=== PATIENT | male | born 1950 | race Caucasian/White ===

== ENCOUNTER 2016-10-05 18:16 | Emergency (ER) | payer OTHER ==
[~2016-10-05] VITALS: Ht 180.3 cm; Wt 83.2 kg
[~2016-10-05 18:16] MED LIST: ASPCH81X PO; CIPR-255 PO; GLIP-199 PO; IBUP-1050 PO; METF1TAB53 PO
[2016-10-05 18:21] VITALS: TEMP 37.1; Ht 180.3 cm; Wt 83.2 kg
[2016-10-05] MEDS ORDERED: SULFAMETHOXAZOLE/TRIMETHOPRIM DS 800/160MG TAB PO STA (18:40)
[2016-10-05] MEDS ORDERED: CEFTRIAXONE SOD INJ 1 GM ADDVIAL IV STA (18:40)
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
[2016-10-05 19:44] LABS: BASO % 0.2 %; BASO ABS # 0.02 K/uL (0-0.2); COMPLETE YES; EOS % 2.6 %; IG% 0.3 %; LYMPH % 15.8 %; LYMPH ABS # 1.39 K/uL (1.2-3.4); MEAN CELL VOLUME 86.2 fL (80-100); MEAN CORPUSCULAR HEMOGLOBIN 30.3 pg (25-34); MEAN CORPUSCULAR HGB CONC 35.1 g/dl (32-36); MEAN PLATELET VOLUME 11.1 fL (7.4-10.4); MONO % 6.4 %; NEUT % 74.7 %; PLATELET COUNT 245 K/uL (130-400); RED BLOOD COUNT 5.22 M/uL (4.7-6.1)
[2016-10-05 20:00] VITALS: BP 139/83; PULSE 65; O2SAT 96
[2016-10-05] MEDS ORDERED: SULF800T23 PO (20:04)
[2016-10-05] MEDS ORDERED: CEPH500C2 PO (20:04)
[2016-10-05 20:20] LABS: ALKALINE PHOSPHATASE 177 U/L (45-117); ALT/SGPT 31 U/L (12-78); AST/SGOT 21 U/L (15-37); BLOOD UREA NITROGEN 18 mg/dl (7-18); BUN/CREATININE RATIO 14.1 (10-20); CALCIUM 9.2 mg/dl (8.5-10.1); CARBON DIOXIDE 30 mmol/L (21-32); CHLORIDE 102 mmol/L (98-107); GLUCOSE 394 mg/dl (70-99); SODIUM 138 mmol/L (136-145)
[2016-10-05 20:32] LABS: BETA-HYDROXYBUTYRATE 3.84 mg/dL (0.2-2.81)
[2016-10-16] MEDS ORDERED: AMOX875T PO (09:28)
[2016-10-16] MEDS ORDERED: FLUC100T PO (09:30)
[2016-11-18] MEDS ORDERED: AMX500 PO (12:51)
[2016-11-27] MEDS ORDERED: INSU70IN2 SC (09:52)
== END 2016-10-05 20:30 | disposition home or self-care (01) ==
LOC: C.EDB 18:19 → C.EDC 20:30
DX: L97.529 Non-pressure chronic ulcer of other part of left foot with unspecified severity (principal); E11.65 Type 2 diabetes mellitus with hyperglycemia; R20.2 Paresthesia of skin; I10 Essential (primary) hypertension; Z79.84 Long term (current) use of oral hypoglycemic drugs; Z79.899 Other long term (current) drug therapy; Z86.79 Personal history of other diseases of the circulatory system; Z82.49 Family history of ischemic heart disease and other diseases of the circulatory system; Z83.3 Family history of diabetes mellitus

== ENCOUNTER → 2016-10-11 | Outpatient (CLI) | payer OTHER ==
[~2016-10-11] MED LIST changes: +AMOX875T PO; +AMX500 PO; -ASPCH81X PO; +CEPH500C2 PO; -CIPR-255 PO; +FLUC100T PO; +INSU70IN2 SC; +SULF800T23 PO
--- NOTE | 2016-10-11 12:00 | DIAGNOSTIC IMAGING REPORT ---
LEFT FOURTH TOE 3 VIEWS HISTORY: TOE NON HEALING WOUND COMPARISON: None. FINDINGS: Diffuse soft tissue swelling within the left fourth toe. There are 2 small focal cortical erosions at the head of the proximal phalanx and at the mid aspect of the middle phalanx of the fourth toe. No radiopaque foreign bodies. No fracture or dislocation. IMPRESSION: There are 2 small focal cortical erosions within the proximal and middle phalanx of the fourth toe. These are consistent with osteomyelitis until proven otherwise. Electronically signed by: Jimmy Sam M.D. 10/11/2016 11:59 AM Dictated Date/Time: 10/11/2016 11:56 AM
== END | disposition home or self-care (01) ==
LOC: C.RAD 10:59
PROVIDERS: ATTEND Emergency Medicine
DX: E11.621 Type 2 diabetes mellitus with foot ulcer (principal); L97.929 Non-pressure chronic ulcer of unspecified part of left lower leg with unspecified severity

== ENCOUNTER → 2016-10-25 | Outpatient (CLI) | payer OTHER ==
[~2016-10-25] MED LIST changes: -CEPH500C2 PO; +GADAVIST IV PRN; -SULF800T23 PO
--- NOTE | 2016-10-25 13:58 | DIAGNOSTIC IMAGING REPORT ---
ORBIT RADIOGRAPHS 3 VIEWS HISTORY: pre-MRI screening. COMPARISON: Head CT November 23, 2015. FINDINGS: There are no radiopaque foreign bodies identified within the orbits. IMPRESSION: No radiopaque foreign bodies identified within the orbits. Electronically signed by: Austen Gil M.D. 10/25/2016 1:57 PM Dictated Date/Time: 10/25/2016 1:56 PM
--- NOTE | 2016-10-25 15:15 | DIAGNOSTIC IMAGING REPORT ---
MRI the left forefoot without and with contrast CLINICAL HISTORY: Nonhealing left fourth toe ulceration. Possible osteomyelitis COMPARISON STUDY: No previous studies for comparison. FINDINGS: Imaging was performed in the sagittal axial and coronal planes before and after the administration of 8 cc of intravenous Gadavist. There is T1 and T2 marrow edema involving the proximal and distal phalanges of the fourth toe. There is a sinus tract communicating with the lateral skin surface at the level of the proximal to phalangeal joint. The findings are indicative of osteomyelitis. There is post gadolinium enhancement of the marrow and surrounding soft tissues. IMPRESSION: The study confirms the presence of osteomyelitis involving the proximal and middle phalanges of the fourth toe Electronically signed by: John Azevedo M.D. 10/25/2016 3:14 PM Dictated Date/Time: 10/25/2016 3:09 PM
== END | disposition home or self-care (01) ==
LOC: C.MRI 13:21
PROVIDERS: ATTEND Physician Assistant
DX: E11.622 Type 2 diabetes mellitus with other skin ulcer (principal); L97.529 Non-pressure chronic ulcer of other part of left foot with unspecified severity; Z13.5 Encounter for screening for eye and ear disorders; M86.172 Other acute osteomyelitis, left ankle and foot

== ENCOUNTER 2017-08-12 15:43 | Inpatient (IN) | payer OTHER ==
[~2017-08-12] VITALS: Ht 180.3 cm; Wt 82.9 kg
[~2017-08-12 15:43] MED LIST changes: -AMOX875T PO; -AMX500 PO; -FLUC100T PO; -GADAVIST IV PRN
[2017-08-12] MEDS ORDERED: SODIUM CHLORIDE 0.9% 1000ML 2,000 ML IV STA (16:56)
[2017-08-12] MEDS ORDERED: ONDANSETRON INJ 2 MG/ML 2 ML VIAL IV STA ×2 (16:56→20:11)
--- NOTE | 2017-08-12 17:12 | DIAGNOSTIC IMAGING REPORT ---
CHEST ONE VIEW PORTABLE HISTORY: Generalized abdominal pain. COMPARISON: Chest 11/23/2015. FINDINGS: The lungs are clear. Cardiac silhouette is normal in size. No pleural effusions. No pneumothorax. IMPRESSION: No acute process. Electronically signed by: Jimmy Sam M.D. 08/12/2017 5:11 PM Dictated Date/Time: 08/12/2017 5:10 PM
[2017-08-12] MEDS ORDERED: OPTIRAY 320 IV PRN (17:15)
[2017-08-12] MEDS ORDERED: METF-384 PO (17:40)
[2017-08-12] MEDS ORDERED: GLIP10TA9 PO (17:40)
[2017-08-12] MEDS ORDERED: INSUINJ7 SC (17:45)
[2017-08-12 17:59] LABS: BASO % 0.2 %; BASO ABS # 0.03 K/uL (0-0.2); EOS % 0.2 %; EOS ABS # 0.03 K/uL (0-0.5); HEMATOCRIT 38.3 % (42-52); HEMOGLOBIN 13.5 g/dL (14.0-18.0); IG# 0.04 K/uL (0.00-0.02); LYMPH % 8.3 %; MEAN CELL VOLUME 83.4 fL (80-100); MEAN CORPUSCULAR HEMOGLOBIN 29.4 pg (25-34); MEAN CORPUSCULAR HGB CONC 35.2 g/dl (32-36); MEAN PLATELET VOLUME 10.6 fL (7.4-10.4); MONO % 8.3 %; NEUT % 82.7 %; NEUT ABS # 10.96 K/uL (1.4-6.5); PLATELET COUNT 267 K/uL (130-400); RED CELL DISTRIBUTION WIDTH CV 12.6 % (11.5-14.5); RED CELL DISTRIBUTION WIDTH SD 38.2 fL (36.4-46.3); WHITE BLOOD COUNT 13.26 K/uL (4.8-10.8)
[2017-08-12 18:17] LABS: ISTAT CREATININE 1.4 mg/dl (0.6-1.3); ISTAT IONIZED CALCIUM 1.05 mmol/l (1.12-1.32); ISTAT POTASSIUM 3.8 mEq/L (3.3-5.0)
[2017-08-12 18:33] LABS: ALBUMIN 2.8 gm/dl (3.4-5.0); ALKALINE PHOSPHATASE 146 U/L (45-117); ALT/SGPT 19 U/L (12-78); AST/SGOT 16 U/L (15-37); BLOOD UREA NITROGEN 23 mg/dl (7-18); CARBON DIOXIDE 26 mmol/L (21-32); CREATININE 1.57 mg/dl (0.60-1.40); GLUCOSE 380 mg/dl (70-99); LIPASE 290 U/L (73-393); POTASSIUM 3.7 mmol/L (3.5-5.1); SODIUM 130 mmol/L (136-145); TOTAL PROTEIN 8.3 gm/dl (6.4-8.2)
[2017-08-12 18:57] LABS: INFLUENZA A PCR Neg for Influ A (NEG); INFLUENZA B PCR Neg for Influ B (NEG)
[2017-08-12] MEDS ORDERED: SODIUM CHLORIDE 0.9% 1000ML 1,000 ML IV STA (19:00)
--- NOTE | 2017-08-12 19:35 | DIAGNOSTIC IMAGING REPORT ---
ABDOMEN AND PELVIS CT WITHOUT CONTRAST CT DOSE: 1074.71 mGy.cm HISTORY: right flank pain TECHNIQUE: Multiaxial CT images of the abdomen and pelvis were performed without the use of intravenous and oral contrast according to the standard department stone protocol. A dose lowering technique was utilized adhering to the principles of ALARA. COMPARISON STUDY: None. FINDINGS: There is a 4 mm nodule within the right middle lobe on image 2 and a 4 mm nodule within the right lower lobe on image 8. No pneumoperitoneum. No pneumatosis. Posterior decompression at L5. No suspicious lytic or blastic osseous lesions. The unenhanced liver, spleen, adrenal glands, and pancreas are unremarkable. Punctate stone within the gallbladder. A few prominent left periaortic lymph nodes. Dominant lymph node measures 1.9 x 1.3 cm. Moderate bilateral perinephric edema/fat stranding. As is most pronounced on the left. There is abnormal fullness is a heterogeneous appearance the upper pole the left kidney. This appears a portion of the upper pole collecting system. A few small bilateral peripelvic cysts. No renal or ureteral calculi. No hydronephrosis. There is left periureteral fat stranding. There is also mild thickening of the bladder wall. Small fat-containing right inguinal hernia. Suboptimal evaluation for bowel pathology due to the lack of intravenous and oral contrast. However, there is no definite out wall thickening or obstruction. IMPRESSION: 1. No renal or ureteral stones. No hydronephrosis. 2. Bilateral perinephric fat stranding/edema most pronounced within the upper pole the left kidney. There is also abnormal soft tissue fullness in the heterogeneous appearance the upper pole the left kidney. Therefore, this could represent a bilateral pyelonephritis. However, an underlying renal mass at the left upper pole cannot be excluded on this noncontrast study. Dedicated abdominal CT with intravenous contrast is recommended for further evaluation. 3. There is also mild thickening of the bladder wall suggestive of a cystitis. Recommend correlation with urinalysis. 4. Small fat-containing right inguinal hernia. 5. No definite bowel wall thickening or obstruction. 6. There are 2 subcentimeter pulmonary nodules within the right lung with the largest measuring 4 mm. Please refer to the chart below for recommended follow-up. Please refer to below summary of Fleischner criteria recommendations for follow-up of incidental CT nodules ([facility], Guidelines for management of small pulmonary nodules detected on CT scans: A statement from the Fleischner Society, Radiology 237: [phone].) SOLID NODULES Solitary nodule size: <6 mm * Low risk patients: no follow-up needed * high risk patients: optional CT at 12 months Solitary nodule size: 6-8 mm * Low risk patients: follow-up at 6-12 months, then consider further follow-up at 18-24 months * high risk patients: initial follow-up CT at 6-12 months and then at 18-24 months if no change Solitary nodule size: >8 mm * either low or high risk patients - consider follow-up CT at 3 months, and/or CT-PET, and/or biopsy Multiple nodules size: <6 mm * Low risk patients: no routine follow-up * high risk patients: optional CT at 12 months Multiple nodules size: 6-8 mm * Low risk patients: follow-up at 3-6 months, then consider further follow-up at 18-24 months * high risk patients: follow-up at 3-6 months, then at 18-24 months if no change Multiple nodules size: >8 mm * Low risk patients: follow-up at 3-6 months, then consider further follow-up at 18-24 months * high risk patients: follow-up at 3-6 months, then at 18-24 months if no change Note: newly detected indeterminate nodule in persons 35 years of age or older. * Low risk patients: minimal or absent history of smoking and/or other known risk factors * high risk patients: history of smoking or of other known risk factors (e.g. first degree relative with lung cancer, or exposure to asbestos, radon, uranium) * if a nodule up to 8 mm is partly solid or is ground glass further follow-up is required after 24 months to exclude possible slow growing adenocarcinoma (CAPRI) SUBSOLID NODULES Solitary pure ground-glass nodule * nodule size <6 mm - no CT follow-up required * nodule size >=6 mm - follow-up CT at 6-12 months, then every 2 years until 5 years Solitary part-solid nodule * nodule size <6 mm - no CT follow-up required * nodule size >=6 mm - follow-up CT at 3-6 months. If unchanged, and solid component remains <6 mm, then annual follow-up for 5 years Multiple subsolid nodules * nodule size <6 mm - follow-up CT at 3-6 months, consider further follow-up at 2 and 4 years if stable * nodule size >=6 mm - follow-up CT at 3-6 months, subsequent management based on the most suspicious nodule(s) Electronically signed by: Jimmy Sam M.D. 08/12/2017 7:34 PM Dictated Date/Time: 08/12/2017 7:22 PM
[2017-08-12] MEDS ORDERED: LEVAQUIN 750MG / 150ML D5W IV STA (19:57)
[2017-08-12] MEDS ORDERED: INSULIN ASPART 100 UNITS/ML 3 ML PEN SC STA (19:57)
[2017-08-12] MEDS ORDERED: PIPERACILLIN/TAZOBACTAM 4.5 GM/100ML D5W IV STA (20:14)
[2017-08-12] MEDS ORDERED: INSULIN GLARGINE SOLOSTAR 100 UNITS/ML 3 ML PEN SC STA (20:25)
[2017-08-12] MEDS ORDERED: NSS + 20MEQ KCL 1000ML 1,000 ML IV SCH ×2 (20:30→23:15)
--- NOTE | 2017-08-12 21:51 | EMERGENCY ROOM VISIT NOTE ---
History Report prepared by Callie: Yolanda Hernandez Under the Supervision of: Dr. Yovanny Tran M.D. First contact with patient: 16:48 Chief Complaint: NAUSEA Stated Complaint: COUGH, SUGAR 497, FATIGUE Nursing Triage Summary: Patient ambulatory to triage with an upright and steady gait, states "I am just wore out. I have this cough that brings up white and yellow sputum. My sugar was 497 today. I have been on the recliner for the last 4 days. I can't eat, drink or anything. I have been nauseated and have tried to vomit 4 times. I haven't been able to bring anything up. I am having bilateral lower abdominal pain. I thought I had a kidney stone earlier this week because I had pain with urination. The pain is gone with urination now but my urine smells very foul. I have had fevers on and off but haven't checked my temperature. I have had the chills on and off too. I have had a runny nose and my throat was sore when this first started." History of Present Illness The patient is a 67 year old male who presents to the Emergency Room with complaints of persistent nausea starting 4 days ago. The patient has been unable to eat or drink because of his nausea. He has spent most of his time on the recliner for the past 4 days. He reports a subjective fever and dizziness. He thinks that he might have passed a kidney stone this weekend. He had pain with urination. His blood sugar has been high. He states he is not taking his insulin as he should. He has had a cough for the past 3 weeks. He had chest pain earlier this week which lasted 3 hours. He denies any vomiting or headache. He has a history of WPW. Source of History: patient, spouse/significant other Onset: 4 days ago Position: abdomen Quality: other (nausea) Timing: other (persistent) Associated Symptoms: + fevers, + cough, + chest pain (resolved), + urinary symptoms, No headache, No vomiting Note: Pt reports dizziness. Review of Systems See HPI for pertinent positives and negatives. A total of ten systems were reviewed and were otherwise negative. Past Medical & Surgical Medical Problems: (1) Bleeding (2) Diabetes (3) Heart disease (4) Hypertension (5) Osteomyelitis of left foot (6) Sepsis (7) Skin problem (8) WPW syndrome Surgical Problems: (1) History of back surgery Family History Diabetes mellitus Heart disease Social History Smoking Status: Never Smoker Housing Status: lives with significant other Occupation Status: retired Current/Historical Medications Scheduled Glipizide (Glucotrol), 10 MG PO BID Insulin Regular (Human) (Novolin R U-100), 1 DOSE SC AC Metformin Hcl (Glucophage), 1,000 MG PO BID Scheduled PRN Ibuprofen (Advil), 200 MG PO UD PRN for Pain or Fever Allergies Coded Allergies: No Known Allergies (Unverified , 08/12/17) Physical Exam Vital Signs Date Time Temp Pulse Resp B/P (MAP) Pulse Ox O2 Delivery O2 Flow Rate FiO2 08/12/17 20:31 147/85 08/12/17 20:30 93 16 96 Room Air 08/12/17 20:18 88 14 142/78 95 Room Air 08/12/17 19:46 85 18 137/75 96 Room Air 08/12/17 18:24 85 14 141/79 97 Room Air 08/12/17 15:48 37.4 118 18 132/78 96 Room Air Physical Exam GENERAL: Awake, alert, fatigued and uncomfortable-appearing, in no distress HENT: Normocephalic, atraumatic. Dry cracked mucous membranes, otherwise oropharynx unremarkable. EYES: Normal conjunctiva. Sclera non-icteric. NECK: Supple. No nuchal rigidity. FROM. No JVD. RESPIRATORY: Clear to auscultation. CARDIAC: Regular rate, normal rhythm. Extremities warm and well perfused. Pulses equal. ABDOMEN: Soft, non-distended. No tenderness to palpation. No rebound or guarding. No masses. RECTAL: Deferred. MUSCULOSKELETAL: Chest examination reveals no tenderness. The back is symmetrical on inspection without obvious abnormality. There is no CVA tenderness to palpation. No joint edema. LOWER EXTREMITIES: Calves are equal size bilaterally and non-tender. No edema. No discoloration. NEURO: Normal sensorium. No sensory or motor deficits noted. SKIN: No rash or jaundice noted. Medical Decision & Procedures ER Provider Diagnostic Interpretation: Radiology results as stated below per my review and radiologist interpretation: CHEST ONE VIEW PORTABLE HISTORY: Generalized abdominal pain. COMPARISON: Chest 11/23/2015. FINDINGS: The lungs are clear. Cardiac silhouette is normal in size. No pleural effusions. No pneumothorax. IMPRESSION: No acute process. Electronically signed by: Jimmy Sam M.D. 08/12/2017 5:11 PM Dictated Date/Time: 08/12/2017 5:10 PM ABDOMEN AND PELVIS CT WITHOUT CONTRAST CT DOSE: 1074.71 mGy.cm HISTORY: right flank pain TECHNIQUE: Multiaxial CT images of the abdomen and pelvis were performed without the use of intravenous and oral contrast according to the standard department stone protocol. A dose lowering technique was utilized adhering to the principles of ALARA. COMPARISON STUDY: None. FINDINGS: There is a 4 mm nodule within the right middle lobe on image 2 and a 4 mm nodule within the right lower lobe on image 8. No pneumoperitoneum. No pneumatosis. Posterior decompression at L5. No suspicious lytic or blastic osseous lesions. The unenhanced liver, spleen, adrenal glands, and pancreas are unremarkable. Punctate stone within the gallbladder. A few prominent left periaortic lymph nodes. Dominant lymph node measures 1.9 x 1.3 cm. Moderate bilateral perinephric edema/fat stranding. As is most pronounced on the left. There is abnormal fullness is a heterogeneous appearance the upper pole the left kidney. This appears a portion of the upper pole collecting system. A few small bilateral peripelvic cysts. No renal or ureteral calculi. No hydronephrosis. There is left periureteral fat stranding. There is also mild thickening of the bladder wall. Small fat-containing right inguinal hernia. Suboptimal evaluation for bowel pathology due to the lack of intravenous and oral contrast. However, there is no definite out wall thickening or obstruction. IMPRESSION: 1. No renal or ureteral stones. No hydronephrosis. 2. Bilateral perinephric fat stranding/edema most pronounced within the upper pole the left kidney. There is also abnormal soft tissue fullness in the heterogeneous appearance the upper pole the left kidney. Therefore, this could represent a bilateral pyelonephritis. However, an underlying renal mass at the left upper pole cannot be excluded on this noncontrast study. Dedicated abdominal CT with intravenous contrast is recommended for further evaluation. 3. There is also mild thickening of the bladder wall suggestive of a cystitis. Recommend correlation with urinalysis. 4. Small fat-containing right inguinal hernia. 5. No definite bowel wall thickening or obstruction. 6. There are 2 subcentimeter pulmonary nodules within the right lung with the largest measuring 4 mm. Please refer to the chart below for recommended follow-up. Please refer to below summary of Fleischner criteria recommendations for follow-up of incidental CT nodules (Clarke Briggs, Guidelines for management of small pulmonary nodules detected on CT scans: A statement from the Fleischner Society, Radiology 237: [phone].) SOLID NODULES Solitary nodule size: <6 mm * Low risk patients: no follow-up needed * high risk patients: optional CT at 12 months Solitary nodule size: 6-8 mm * Low risk patients: follow-up at 6-12 months, then consider further follow-up at 18-24 months * high risk patients: initial follow-up CT at 6-12 months and then at 18-24 months if no change Solitary nodule size: >8 mm * either low or high risk patients - consider follow-up CT at 3 months, and/or CT-PET, and/or biopsy Multiple nodules size: <6 mm * Low risk patients: no routine follow-up * high risk patients: optional CT at 12 months Multiple nodules size: 6-8 mm * Low risk patients: follow-up at 3-6 months, then consider further follow-up at 18-24 months * high risk patients: follow-up at 3-6 months, then at 18-24 months if no change Multiple nodules size: >8 mm * Low risk patients: follow-up at 3-6 months, then consider further follow-up at 18-24 months * high risk patients: follow-up at 3-6 months, then at 18-24 months if no change Note: newly detected indeterminate nodule in persons 35 years of age or older. * Low risk patients: minimal or absent history of smoking and/or other known risk factors * high risk patients: history of smoking or of other known risk factors (e.g. first degree relative with lung cancer, or exposure to asbestos, radon, uranium) * if a nodule up to 8 mm is partly solid or is ground glass further follow-up is required after 24 months to exclude possible slow growing adenocarcinoma (CAPRI) SUBSOLID NODULES Solitary pure ground-glass nodule * nodule size <6 mm - no CT follow-up required * nodule size >=6 mm - follow-up CT at 6-12 months, then every 2 years until 5 years Solitary part-solid nodule * nodule size <6 mm - no CT follow-up required * nodule size >=6 mm - follow-up CT at 3-6 months. If unchanged, and solid component remains <6 mm, then annual follow-up for 5 years Multiple subsolid nodules * nodule size <6 mm - follow-up CT at 3-6 months, consider further follow-up at 2 and 4 years if stable * nodule size >=6 mm - follow-up CT at 3-6 months, subsequent management based on the most suspicious nodule(s) Electronically signed by: Jimmy Sam M.D. 08/12/2017 7:34 PM Dictated Date/Time: 08/12/2017 7:22 PM Laboratory Results 08/12/17 17:35 Red Blood Count 4.59, Mean Corpuscular Volume 83.4, Mean Corpuscular Hemoglobin 29.4, Mean Corpuscular Hemoglobin Concent 35.2, Mean Platelet Volume 10.6, Neutrophils (%) (Auto) 82.7, Lymphocytes (%) (Auto) 8.3, Monocytes (%) (Auto) 8.3, Eosinophils (%) (Auto) 0.2, Basophils (%) (Auto) 0.2, Neutrophils # (Auto) 10.96, Lymphocytes # (Auto) 1.10, Monocytes # (Auto) 1.10, Eosinophils # (Auto) 0.03, Basophils # (Auto) 0.03 08/12/17 17:35 Test 08/12/17 17:18 08/12/17 17:35 08/12/17 17:48 08/12/17 18:44 Influenza Type A (RT-PCR) Neg for Influ A (NEG) Influenza Type B (RT-PCR) Neg for Influ B (NEG) White Blood Count 13.26 K/uL (4.8-10.8) Red Blood Count 4.59 M/uL (4.7-6.1) Hemoglobin 13.5 g/dL (14.0-18.0) Hematocrit 38.3 % (42-52) Mean Corpuscular Volume 83.4 fL (80-100) Mean Corpuscular Hemoglobin 29.4 pg (25-34) Mean Corpuscular Hemoglobin Concent 35.2 g/dl (32-36) Platelet Count 267 K/uL (130-400) Mean Platelet Volume 10.6 fL (7.4-10.4) Neutrophils (%) (Auto) 82.7 % Lymphocytes (%) (Auto) 8.3 % Monocytes (%) (Auto) 8.3 % Eosinophils (%) (Auto) 0.2 % Basophils (%) (Auto) 0.2 % Neutrophils # (Auto) 10.96 K/uL (1.4-6.5) Lymphocytes # (Auto) 1.10 K/uL (1.2-3.4) Monocytes # (Auto) 1.10 K/uL (0.11-0.59) Eosinophils # (Auto) 0.03 K/uL (0-0.5) Basophils # (Auto) 0.03 K/uL (0-0.2) RDW Standard Deviation 38.2 fL (36.4-46.3) RDW Coefficient of Variation 12.6 % (11.5-14.5) Immature Granulocyte % (Auto) 0.3 % Immature Granulocyte # (Auto) 0.04 K/uL (0.00-0.02) Est Creatinine Clear Calc Drug Dose 49.9 ml/min Estimated GFR () 52.8 Estimated GFR (Non- 45.6 BUN/Creatinine Ratio 14.4 (10-20) Lactic Acid Level 1.6 mmol/L (0.4-2.0) Calcium Level 9.0 mg/dl (8.5-10.1) Magnesium Level 1.9 mg/dl (1.8-2.4) Total Bilirubin 1.1 mg/dl (0.2-1) Direct Bilirubin 0.3 mg/dl (0-0.2) Aspartate Amino Transf (AST/SGOT) 16 U/L (15-37) Alanine Aminotransferase (ALT/SGPT) 19 U/L (12-78) Alkaline Phosphatase 146 U/L (45-117) Troponin I < 0.015 ng/ml (0-0.045) Total Protein 8.3 gm/dl (6.4-8.2) Albumin 2.8 gm/dl (3.4-5.0) Lipase 290 U/L (73-393) Beta-Hydroxybutyric Acid 3.69 mg/dL (0.2-2.81) Bedside Hemoglobin 13.6 g/dl (14.0-18.0) Bedside Hematocrit 40 % (42-52) Bedside Sodium 134 mEq/L (135-144) Bedside Potassium 3.8 mEq/L (3.3-5.0) Bedside Chloride 94 mEq/L (101-112) Bedside Total CO2 27 mEq/l (24-31) Anion Gap 18.0 mmol/L (16-25) Bedside Blood Urea Nitrogen 25 mg/dl (7-18) Bedside Creatinine 1.4 mg/dl (0.6-1.3) Bedside Glucose (other) 400 mg/dl (70-99) Bedside Ionized Calcium (Mika) 1.05 mmol/l (1.12-1.32) Venous Blood pH 7.40 (7.36-7.41) Venous Blood Partial Pressure CO2 45 mmHg (38.0-50.0) Venous Blood Partial Pressure O2 22 mmHg Venous Blood HCO3 28 mmol/L Venous Blood Oxygen Saturation < 60.0 % Venous Blood Base Excess 2.3 mEq/L Test 08/12/17 19:07 Urine Color YELLOW Urine Appearance TURBID (CLEAR) Urine pH 5.5 (4.5-7.5) Urine Specific Ringling 1.029 (1.000-1.030) Urine Protein 2+ (NEG) Urine Glucose (UA) 3+ (NEG) Urine Ketones TRACE (NEG) Urine Occult Blood 3+ (NEG) Urine Nitrite POS (NEG) Urine Bilirubin NEG (NEG) Urine Urobilinogen NEG (NEG) Urine Leukocyte Esterase MODERATE (NEG) Urine WBC (Auto) >30 /hpf (0-5) Urine RBC (Auto) 0-4 /hpf (0-4) Urine Hyaline Casts (Auto) 1-5 /lpf (0-5) Urine Epithelial Cells (Auto) >30 /lpf (0-5) Urine Bacteria (Auto) 4+ (NEG) Urine Yeast (Auto) (NONE PRSENT) Laboratory results reviewed by me Medications Administered Medications (Trade) Dose Ordered Sig/Asif Route Start Time Stop Time Status Last Admin Dose Admin Sodium Chloride 2,000 ml @ 999 mls/hr Q2H1M STAT IV 08/12/17 16:56 08/12/17 18:56 DC 08/12/17 17:53 999 MLS/HR Ondansetron HCl (Zofran Inj) 4 mg NOW STAT IV 08/12/17 16:56 08/12/17 16:59 DC 08/12/17 17:54 4 MG Sodium Chloride 1,000 ml @ 999 mls/hr Q1H1M STAT IV 08/12/17 19:00 08/12/17 20:00 DC 08/12/17 19:10 999 MLS/HR Insulin Aspart (novoLOG ASPART) 8 units NOW STAT SC 08/12/17 19:57 08/12/17 20:01 DC 08/12/17 20:15 8 UNITS Levofloxacin (Levaquin / D5W) 750 mg NOW STAT IV 08/12/17 19:57 08/12/17 20:17 DC 08/12/17 20:13 750 MG Ondansetron HCl (Zofran Inj) 4 mg NOW STAT IV 08/12/17 20:11 08/12/17 20:12 DC 08/12/17 20:16 4 MG Insulin Glargine (Lantus Solostar Pen) 20 units ONE STAT SC 08/12/17 20:25 08/12/17 20:26 DC 08/12/17 21:08 20 UNITS Piperacillin Sod/ Tazobactam Sod (Zosyn Iv) 4.5 gm NOW STAT IV 08/12/17 20:14 08/12/17 20:24 DC 08/12/17 20:36 4.5 GM Potassium Chloride/Sodium Chloride 1,000 ml @ 100 mls/hr Q10H IV 08/12/17 20:30 08/12/17 23:15 DC 08/12/17 21:09 100 MLS/HR ECG Per My Interpretation Indication: tachycardia Rate (beats per minute): 105 Rhythm: sinus tachycardia Findings: no acute ischemic change, other (normal axis) ED Course 1649: The patient was evaluated in room A9B. A complete history and physical exam was performed. 2000: Upon reexamination, the patient was stable. I discussed the test results and treatment plan with him. The patient will be evaluated for further management. 2009: I discussed the patient with Dr. Kim, [facility] hospitalist - He will evaluate the patient for further treatment. Medical Decision I reviewed the patient's past medical history, medications, and the nursing notes as described above. Etiologies such as appendicitis, diverticulitis, obstruction, inflammatory bowel disease, renal colic, PUD, biliary pathology, pancreatitis, mesenteric ischemia, aortic pathology, infections, genitourinary, UTI, perforated viscus, as well as others were entertained. The patient is a 67-year-old gentleman with a past medical history of insulin- dependent diabetes type 2 presents to the emergency department with worsening cough congestion, body aches, nausea over the past several days per hpi. Patient is uncomfortable and fatigued but no acute distress. Temp is 37.6. Vital signs otherwise stable. Leukocytosis to 13 consistent with the patient's grossly positive UA. CT the abdomen pelvis consistent with pyelonephritis. The patient did have elevated glucose in the 400s however no anion gap or acidosis. Thus will treat with Subcu insulin and IV fluid hydration. Lactate within normal limits. Will treat pyelonephritis with IV Levaquin. The case was discussed with [facility] hospitalist who will to admit the patient for further management. Medication Reconcilliation Current Medication List: was personally reviewed by me Blood Pressure Screening Patient's blood pressure: Elevated blood pressure Referred to hospitalist. Consults Time Called: 2006 Consulting Physician: [facility] hospitalist Returned Call: 2009 I discussed the patient with him - He will evaluate the patient for further treatment. Impression Primary Impression: Pyelonephritis Additional Impressions: Hyperglycemia Dehydration Scribe Attestation The scribe's documentation has been prepared under my direction and personally reviewed by me in its entirety. I confirm that the note above accurately reflects all work, treatment, procedures, and medical decision making performed by me. Departure Information Dispostion Being Evaluated By Hospitalist Referrals No Doctor, Assigned (PCP) Patient Instructions [facility] Problem Qualifiers
[2017-08-12] MEDS ORDERED: PHARMACY GLYCEMIC MGMT CONSULT PRN (22:51)
[2017-08-12 22:56] VITALS: BP 135/87; PULSE 99; TEMP 37.4; O2SAT 96; BMI 25.5
[2017-08-12] MEDS ORDERED: COUGH DROP (SUGAR FREE) LOZ 24 LOZ/1 BOX LOZ PRN (23:00)
[2017-08-12] MEDS ORDERED: POTASSIUM CHLORIDE 10 MEQ TABCR PO STA (23:11)
[2017-08-12] MEDS ORDERED: DOXYCYCLINE HYCLATE 100 MG CAP PO STA (23:11)
[2017-08-12] MEDS ORDERED: HYDROmorphone INJ 0.5 MG/0.5 ML SYR IV PRN (23:15)
[2017-08-12] MEDS ORDERED: GLUCOSE 40% GEL 15 GM TUBE PO PRN (23:15)
[2017-08-12] MEDS ORDERED: TRAMADOL HCL 50 MG TAB PO PRN (23:15)
[2017-08-12] MEDS ORDERED: GLUCAGON FOR INJ 1 MG VIAL SQ PRN (23:15)
[2017-08-12] MEDS ORDERED: GLUCOSE 10 TABS/TUBE PO PRN (23:15)
[2017-08-12] MEDS ORDERED: LORAZEPAM 2 MG/ML 1 ML VIAL IV PRN (23:15)
[2017-08-12] MEDS ORDERED: DEXTROSE 50% 50 ML SYR IV PRN (23:15)
[2017-08-12] MEDS ORDERED: ALBUT/IPRATROP 3MG/0.5MG NEB 3 ML VIAL INH PRN (23:15)
[2017-08-12] MEDS ORDERED: ALBUT/IPRATROP 3MG/0.5MG NEB 3 ML VIAL INH STA (23:21)
[2017-08-12 23:35] VITALS: PULSE 92; O2SAT 95
[2017-08-12] MEDS: INSULIN ASPART 100 UNITS/ML 3 ML PEN SC SCH (23:47)
[2017-08-13] MEDS: PIPERACILL/TAZOBAC IV 3.375 GM in DEXTROSE 5% 100ML IV SCH ×3 (03:35→18:26)
[2017-08-13] MEDS: INSULIN ASPART 100 UNITS/ML 3 ML PEN SC SCH ×5 (03:42→21:11)
[2017-08-13] MEDS: PROCHLORPERAZINE INJ 5 MG in SYRINGE 4 ML IV PRN (03:54)
--- NOTE | 2017-08-13 05:54 | HISTORY & PHYSICAL EXAMINATION ---
DATE OF ADMISSION: 08/12/2017 PATIENT'S PRIMARY CARE DOCTOR: Herberth Martinez PA-C from [place]. CHIEF COMPLAINT: Cough, high sugars, abdominal pain. HISTORY OF PRESENT ILLNESS: History obtained from patient and records. Medical history significant for Wubhe-Onqllgnlv-Uwimg/PSVT syndrome as per records, hypertension, hyperlipidemia, reflux, DM2, insulin requiring, history of Enterococcus diabetic foot infection. Last few days, the patient noted a cough, yellow sputum, started with nasal drainage, congestion. No chest pain, no shortness of breath. Unknown if he had sick contacts. Patient later on noted achy abdominal pain, may have passed a kidney stone, no blood in the urine. Foul smelling urine noted. Some nausea, no emesis Blood sugars noted to be high at home. Patient admits to erratic compliance with home diabetes regimen. Patient brought to Emergency Room, MEDICAL HISTORY: As above. SURGERIES: He has had eye surgery, orthopedic procedures. FAMILY HISTORY: Unknown to patient as patient is adopted. Home Meds : Glipizide, Humulin R for sliding scale, Advil, metformin (Baby ASA for "heart issues" which patient has not taken for some time now.) Allergies : NKA PERSONAL AND SOCIAL HISTORY: Nonsmoker, no chronic intake of alcoholic beverages. 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 REVIEW OF SYSTEMS: As per HPI. All 10 systems reviewed. All other ROS negative. PHYSICAL EXAMINATION: VITAL SIGNS: Blood pressure was noted to be 132/78, pulse rate noted to be 118, later 85, RR 18, temperature 38, sats 96 on room air. GENERAL: Uncomfortable, anxious, no respiratory distress. SKIN: Pallor, warm. HEENT: Pale palpebral conjunctivae. No ptosis. Dry mucosa. NECK: supple, nontender. CHEST: No tenderness. Clear to auscultation. HEART: Regular rate and rhythm, no murmur. ABDOMEN: Some distention, Hypogastric tenderness. RECTAL: Intact sphincter, yellow stool, heme negative. EXTREMITIES: No edema, no tenderness. No gross deformity. NEUROLOGIC: Coherent. No gross focality. LABORATORY DATA: Hemoglobin was noted to be 13.5, white blood cell count 13, platelets noted to be 267. Sodium 130, potassium 3.7, chloride 95, CO2 26, BUN 1.7, glucose 380. Anion gap was noted 9, Lactic acid was 1.6. Troponin negative Hemoglobin A1c from January 2017 was 7.8. Chest x-ray, no acute process. CT abdomen and pelvis showed no hydronephrosis, bilateral perinephric stranding most pronounced in the mid pole of the left kidney, possibly pyelonephritis, cystitis; 2 subcentimeter pulmonary nodules, right lung measuring 4 mm. EKG as per my interpretation rate 105, sinus tachycardia, inferior infarct ASSESSMENT: 1. Severe sepsis SIRS plus acute renal failure possible sources : complicated urinary tract infection (hx Enterococcal infection as per records) complicated bronchitis. 2. Hx WPW, PSVT as per records px NSR 3. DM2, insulin requiring, suboptimal control, as of recent A1c elevated secondary to patient admitted noncompliance with regimen. 3. Hypertension, slightly elevated not on meds. 4. Anemia, new onset 5. Pulmonary nodules PLAN: GMF CS, Zosyn for complicated UTI Doxycycline for complicated bronchitis. Monitor creatinine response to IVF Check hemoglobin A1c Pharmacy consult for glycemic control and assistance with conceiving a home regimen for patient using agents he can procure with his insurance. Anemia workup. Diabetic education. Outpatient follow-up surveillance study for incidental finding of pulmonary nodules on CT. DVT prophylaxis, Heparin subQ. Full code. MTDD
[2017-08-13] MEDS: BENZONATATE 100MG CAP PO PRN (06:22)
[2017-08-13 06:50] LABS: BASO % 0.3 %; BASO ABS # 0.03 K/uL (0-0.2); EOS % 1.1 %; EOS ABS # 0.11 K/uL (0-0.5); HEMATOCRIT 32.5 % (42-52); HEMOGLOBIN 11.3 g/dL (14.0-18.0); IG# 0.02 K/uL (0.00-0.02); LYMPH % 10.6 %; LYMPH ABS # 1.06 K/uL (1.2-3.4); MEAN CELL VOLUME 83.5 fL (80-100); MEAN CORPUSCULAR HGB CONC 34.8 g/dl (32-36); MEAN PLATELET VOLUME 9.8 fL (7.4-10.4); MONO % 9.2 %; MONO ABS # 0.92 K/uL (0.11-0.59); NEUT % 78.6 %; NEUT ABS # 7.88 K/uL (1.4-6.5); PLATELET COUNT 221 K/uL (130-400); RED CELL DISTRIBUTION WIDTH CV 12.7 % (11.5-14.5); RED CELL DISTRIBUTION WIDTH SD 38.8 fL (36.4-46.3); RETIC COUNT % 1.2 % (0.5-2.0); WHITE BLOOD COUNT 10.02 K/uL (4.8-10.8)
[2017-08-13 07:27] LABS: CALCIUM 8.3 mg/dl (8.5-10.1); CREATININE 1.17 mg/dl (0.60-1.40); POTASSIUM 3.8 mmol/L (3.5-5.1)
[2017-08-13 07:33] LABS: HEMOGLOBIN A1C 11.8 % (4.5-5.6)
[2017-08-13 07:43] VITALS: BP 116/68; PULSE 79; TEMP 36.8; O2SAT 95
[2017-08-13] MEDS: HEPARIN SOD 5000 UNIT/0.5 ML CARP SQ SCH ×2 (07:47→16:00)
[2017-08-13] MEDS: DOXYCYCLINE HYCLATE 100 MG CAP PO SCH ×2 (07:47→21:09)
[2017-08-13] MEDS: ASPIRIN 81 MG ECTAB PO SCH (07:47)
[2017-08-13] MEDS ORDERED: PIPERACILL/TAZOBAC CONSULT ACTIVE PRN (08:00)
[2017-08-13 08:01] VITALS: O2SAT 95
[2017-08-13] MEDS ORDERED: INSULIN GLARGINE SOLOSTAR 100 UNITS/ML 3 ML PEN SC SCH ×2 (09:00→20:00)
[2017-08-13] MEDS: LEVALBUTEROL 0.63MG/3 ML NEB INH SCH ×3 (10:00→19:02)
[2017-08-13 13:06] VITALS: Ht 180.3 cm; Wt 82.9 kg
[2017-08-13 14:14] VITALS: PULSE 74; O2SAT 98
--- NOTE | 2017-08-13 15:19 | Pharmacy Progress Note ---
Glycemic Control Intl Consult Date of Service Aug 13, 2017. Scope Glycemic Pharmacist consulted by Dr Kim on 08/12/17 for glycemic control and to write orders per [facility] inpatient glycemic control protocol Objective Weight (Kilograms): 82.900 Accuchecks BSG (last 24hrs): Test 08/12/17 17:16 08/12/17 17:35 08/12/17 19:07 08/12/17 23:03 Bedside Glucose 392 mg/dl (70-99) 317 mg/dl (70-99) 233 mg/dl (70-99) Random Glucose 380 mg/dl (70-99) Test 08/13/17 03:38 08/13/17 06:16 08/13/17 07:41 08/13/17 11:35 Bedside Glucose 163 mg/dl (70-99) 158 mg/dl (70-99) 248 mg/dl (70-99) Random Glucose 163 mg/dl (70-99) Laboratory Data (last 24hrs) Test 08/12/17 17:35 08/12/17 17:48 08/13/17 06:16 Anion Gap 9.0 mmol/L 18.0 mmol/L 6.0 mmol/L BUN/Creatinine Ratio 14.4 16.1 Blood Urea Nitrogen 23 mg/dl 19 mg/dl Creatinine 1.57 mg/dl 1.17 mg/dl Hemoglobin A1c 11.8 % Potassium Level 3.7 mmol/L 3.8 mmol/L Sodium Level 130 mmol/L 136 mmol/L White Blood Count 13.26 K/uL 10.02 K/uL Red Blood Count 4.59 M/uL 3.89 M/uL Hemoglobin 13.5 g/dL 11.3 g/dL Hematocrit 38.3 % 32.5 % Mean Corpuscular Volume 83.4 fL 83.5 fL Mean Corpuscular Hemoglobin 29.4 pg 29.0 pg Mean Corpuscular Hemoglobin Concent 35.2 g/dl 34.8 g/dl Platelet Count 267 K/uL 221 K/uL Mean Platelet Volume 10.6 fL 9.8 fL Neutrophils (%) (Auto) 82.7 % 78.6 % Lymphocytes (%) (Auto) 8.3 % 10.6 % Monocytes (%) (Auto) 8.3 % 9.2 % Eosinophils (%) (Auto) 0.2 % 1.1 % Basophils (%) (Auto) 0.2 % 0.3 % Neutrophils # (Auto) 10.96 K/uL 7.88 K/uL Lymphocytes # (Auto) 1.10 K/uL 1.06 K/uL Monocytes # (Auto) 1.10 K/uL 0.92 K/uL Eosinophils # (Auto) 0.03 K/uL 0.11 K/uL Basophils # (Auto) 0.03 K/uL 0.03 K/uL HbA1c Test 08/12/17 17:35 Hemoglobin A1c 11.8 % (4.5-5.6) H Recent Pertinent Medications Outpatient Anti-diabetic Regimen: * Regular insulin, sliding scale * Glipizide 10mg tab BID * Metformin 1000mg BIDM * A1c = 11.8 % 08/12/17 The patient is currently receiving: Risk Factors for Insulin Resistance: * Infection: Urosepsis Assessment & Plan ASSESSMENT: * Mr. Monzon is a 67yo M. PMHx HLD, DMII. Being treated for a complicated UTI with vancomycin and zosyn. He p/w BSG in the 400s. Trended down nicely overnight. Past 8 hours BSGs have ranged from 163-158-248. 20 units of lantus given evening of 08/12/17 and 10 units given this morning. Overnight CF/CR of 25/ 10 seemed to adequately control his glucose. Lunch time BSG of 248 is slightly worrisome. No morning correctional insulin given. Pt did not eat breakfast. Will tighten up carb coverage from 10 to 8. Further, will add 00 & 04 checks for overnight. PLAN FOR INPATIENT GLYCEMIC CONTROL: * Holding outpatient oral diabetes medications * Basal insulin with lantus scale tonight. * Correctional Insulin with NOVOLOG / REGULAR per scale ACHS * Goal Range: Low 110 mg/dL - High 140 mg/dL * Correction Factor: 25 mg/dL/unit * Nutritional / Prandial insulin per carb ratio of 1 unit per 8 grams CHO consumed * Please note that the plan above was derived based on current level of insulin resistance and hospital stress. These recommendations are appropriate for inpatient admission only. Plan of care upon discharge will need to be reassessed to avoid potential outpatient hypo/hyperglycemia. Thank you.
[2017-08-13 15:26] VITALS: BP 131/69; PULSE 77; TEMP 36.7; O2SAT 99
[2017-08-13] MEDS: FERROUS SULFATE 325 MG TAB PO SCH (16:44)
--- NOTE | 2017-08-13 17:38 | Progress Note ---
Medicine Progress Note Date & Time of Visit: Aug 13, 2017 at 17:27. Subjective Seen resting in bed, appears somewhat weak comfortable in good spirits States he feels much improved compared to last night Denies fever chills, flank pain/suprapubic pain, nausea Denies shortness of breath but does have dry cough No other symptoms Objective Last 8 Hrs Date Time Temp Pulse Resp B/P (MAP) Pulse Ox O2 Delivery O2 Flow Rate FiO2 08/13/17 15:26 36.7 77 18 131/69 (89) 99 Room Air 08/13/17 14:14 74 16 98 Room Air Physical Exam: General-oriented 3, not in distress, speaks in sentences with no effort Head- atraumatic Eyes- PERRL, EOMI, anicteric ENT- oropharynx clear Neck- supple, no JVD, no adenopathy, no thyromegaly; carotids +2/2 Lungs- clear breath sounds bilaterally Heart- regular rhythm; no murmur, normal rate Abdomen- normal bowel sounds, soft, nontender, nondistended No CVA tenderness, no suprapubic tenderness Extremities- no pretibial edema, no calf tenderness; peripheral pulses intact Neuro- alert, oriented x 3; no gross focal neurologic deficits Skin- warm & dry Laboratory Results: Last 24 Hours Test 08/12/17 17:35 08/12/17 17:48 08/12/17 18:44 08/12/17 19:07 White Blood Count 13.26 K/uL Red Blood Count 4.59 M/uL Hemoglobin 13.5 g/dL Hematocrit 38.3 % Mean Corpuscular Volume 83.4 fL Mean Corpuscular Hemoglobin 29.4 pg Mean Corpuscular Hemoglobin Concent 35.2 g/dl Platelet Count 267 K/uL Mean Platelet Volume 10.6 fL Neutrophils (%) (Auto) 82.7 % Lymphocytes (%) (Auto) 8.3 % Monocytes (%) (Auto) 8.3 % Eosinophils (%) (Auto) 0.2 % Basophils (%) (Auto) 0.2 % Neutrophils # (Auto) 10.96 K/uL Lymphocytes # (Auto) 1.10 K/uL Monocytes # (Auto) 1.10 K/uL Eosinophils # (Auto) 0.03 K/uL Basophils # (Auto) 0.03 K/uL RDW Standard Deviation 38.2 fL RDW Coefficient of Variation 12.6 % Immature Granulocyte % (Auto) 0.3 % Immature Granulocyte # (Auto) 0.04 K/uL Sodium Level 130 mmol/L Potassium Level 3.7 mmol/L Chloride Level 95 mmol/L Carbon Dioxide Level 26 mmol/L Anion Gap 9.0 mmol/L 18.0 mmol/L Blood Urea Nitrogen 23 mg/dl Creatinine 1.57 mg/dl Est Creatinine Clear Calc Drug Dose 49.9 ml/min Estimated GFR () 52.8 Estimated GFR (Non- 45.6 BUN/Creatinine Ratio 14.4 Random Glucose 380 mg/dl Estimated Average Glucose 292 mg/dl Hemoglobin A1c 11.8 % Lactic Acid Level 1.6 mmol/L Calcium Level 9.0 mg/dl Magnesium Level 1.9 mg/dl Total Bilirubin 1.1 mg/dl Direct Bilirubin 0.3 mg/dl Aspartate Amino Transf (AST/SGOT) 16 U/L Alanine Aminotransferase (ALT/SGPT) 19 U/L Alkaline Phosphatase 146 U/L Troponin I < 0.015 ng/ml Total Protein 8.3 gm/dl Albumin 2.8 gm/dl Lipase 290 U/L Beta-Hydroxybutyric Acid 3.69 mg/dL Bedside Hemoglobin 13.6 g/dl Bedside Hematocrit 40 % Bedside Sodium 134 mEq/L Bedside Potassium 3.8 mEq/L Bedside Chloride 94 mEq/L Bedside Total CO2 27 mEq/l Bedside Blood Urea Nitrogen 25 mg/dl Bedside Creatinine 1.4 mg/dl Bedside Glucose (other) 400 mg/dl Bedside Ionized Calcium (Mika) 1.05 mmol/l Venous Blood pH 7.40 Venous Blood Partial Pressure CO2 45 mmHg Venous Blood Partial Pressure O2 22 mmHg Venous Blood HCO3 28 mmol/L Venous Blood Oxygen Saturation < 60.0 % Venous Blood Base Excess 2.3 mEq/L Urine Color YELLOW Urine Appearance TURBID Urine pH 5.5 Urine Specific [place] 1.029 Urine Protein 2+ Urine Glucose (UA) 3+ Urine Ketones TRACE Urine Occult Blood 3+ Urine Nitrite POS Urine Bilirubin NEG Urine Urobilinogen NEG Urine Leukocyte Esterase MODERATE Urine WBC (Auto) >30 /hpf Urine RBC (Auto) 0-4 /hpf Urine Hyaline Casts (Auto) 1-5 /lpf Urine Epithelial Cells (Auto) >30 /lpf Urine Bacteria (Auto) 4+ Urine Yeast (Auto) Bedside Glucose 317 mg/dl Test 08/12/17 23:03 08/13/17 03:38 08/13/17 06:16 08/13/17 07:41 Bedside Glucose 233 mg/dl 163 mg/dl 158 mg/dl White Blood Count 10.02 K/uL Red Blood Count 3.89 M/uL Hemoglobin 11.3 g/dL Hematocrit 32.5 % Mean Corpuscular Volume 83.5 fL Mean Corpuscular Hemoglobin 29.0 pg Mean Corpuscular Hemoglobin Concent 34.8 g/dl Platelet Count 221 K/uL Mean Platelet Volume 9.8 fL Neutrophils (%) (Auto) 78.6 % Lymphocytes (%) (Auto) 10.6 % Monocytes (%) (Auto) 9.2 % Eosinophils (%) (Auto) 1.1 % Basophils (%) (Auto) 0.3 % Neutrophils # (Auto) 7.88 K/uL Lymphocytes # (Auto) 1.06 K/uL Monocytes # (Auto) 0.92 K/uL Eosinophils # (Auto) 0.11 K/uL Basophils # (Auto) 0.03 K/uL RDW Standard Deviation 38.8 fL RDW Coefficient of Variation 12.7 % Immature Granulocyte % (Auto) 0.2 % Immature Granulocyte # (Auto) 0.02 K/uL Absolute Reticulocyte Count 0.05 10^6/uL Percent Reticulocyte Count 1.2 % Prothrombin Time 10.5 SECONDS Prothromb Time International Ratio 1.0 Sodium Level 136 mmol/L Potassium Level 3.8 mmol/L Chloride Level 104 mmol/L Carbon Dioxide Level 26 mmol/L Anion Gap 6.0 mmol/L Blood Urea Nitrogen 19 mg/dl Creatinine 1.17 mg/dl Est Creatinine Clear Calc Drug Dose 67.0 ml/min Estimated GFR () 75.4 Estimated GFR (Non- 65.0 BUN/Creatinine Ratio 16.1 Random Glucose 163 mg/dl Calcium Level 8.3 mg/dl Iron Level 21 mcg/dl Total Iron Binding Capacity 169 mcg/dl Transferrin 143 mg/dl Transferrin % Saturation 10 % Ferritin 1071.1 ng/ml Vitamin B12 Level 273 pg/mL Folate 8.88 ng/mL Test 08/13/17 11:35 08/13/17 16:40 Bedside Glucose 248 mg/dl 281 mg/dl Date/Time Source Procedure Growth Status 08/12/17 17:43 Blood Blood Culture Pending Received 08/12/17 17:35 Blood Blood Culture Pending Received 08/12/17 19:07 Urine , Clean Catch Urine Culture Pending Received Assessment & Plan 67-year-old male with history of diabetes type 2, hypertension, dyslipidemia, WPW syndrome, Presenting with weakness. SEPSIS SECONDARY TO PYELONEPHRITIS AND POSSIBLE ACUTE BRONCHITIS Bradycardia improved, afebrile, blood pressure stable Urine cultures pending Blood cultures pending Continue empiric Zosyn and doxycycline Continue IV fluids ACUTE RENAL FAILURE LIKELY SECONDARY TO SEPSIS AND PRERENAL ETIOLOGY Resolved Management of sepsis as noted above Continue IV fluids RULE OUT RENAL MASS Seen on CT abdomen pelvis with no contrast We will order CT abdomen pelvis with contrast if renal function remains stable PULMONARY NODULES Follow-up as an outpatient per guidelines UNCONTROLLED DIABETES hemoglobin A1c 11.8 pharmacy glycemic control Consulted peer educator consulted Uses regular insulin at home 3 times daily with meals, will need to simplify with Lantus daily dosing on discharge Also on metformin and glipizide at home HYPERTENSION Stable IRON DEFICIENCY ANEMIA Monitor hemoglobin Supplement iron We will need outpatient further workup DVT prophylaxis Hemoglobin low Hold heparin until active bleeding ruled out Disposition Lives at home PT OT to be ordered Anticipate discharge to home when medically stable Current Inpatient Medications: Current Inpatient Medications Medications (Trade) Dose Ordered Sig/Asif Route Start Time Stop Time Status Last Admin Dose Admin Ioversol (Optiray 320) 100 ml UD PRN IV 08/12/17 17:15 08/16/17 17:14 Miscellaneous Information (Consult Glycemic Management Pharmacy) 1 ea DAILY PRN N/A 08/12/17 22:51 09/11/17 22:50 Menthol (Nice Ifrah) 1 ifrah PRN PRN IFRAH 08/12/17 23:00 09/11/17 22:59 08/12/17 23:50 1 IFRAH Insulin Aspart (novoLOG ASPART) SLIDING SCALE ACHS SC 08/13/17 06:30 09/12/17 06:29 08/13/17 13:48 8 UNITS Glucose (Glucose 40% Gel) 15-30 GRAMS 15 GRAMS... UD PRN PO 08/12/17 23:15 09/11/17 23:14 Glucose (Glucose Chew Tab) 4-8 Tablets 4 Tabl... UD PRN PO 08/12/17 23:15 09/11/17 23:14 Dextrose (Dextrose 50% 50ML Syringe) 25-50ML OF 50% DW IV FOR... UD PRN IV 08/12/17 23:15 09/11/17 23:14 Glucagon (Glucagon Inj) 1 mg UD PRN SQ 08/12/17 23:15 09/11/17 23:14 Heparin Sodium (Porcine) (Heparin Sq 5000 Unit/0.5ml) 5,000 unit Q8H SQ 08/13/17 08:00 09/12/17 07:59 Acetaminophen (Tylenol Tab) 650 mg Q4H PRN PO 08/12/17 23:15 09/11/17 23:14 Prochlorperazine Edisylate 5 mg/ Syringe 5 ml @ 5 mls/min Q6H PRN IV 08/12/17 23:15 09/11/17 23:14 08/13/17 03:54 5 MLS/MIN Tramadol HCl (Ultram Tab) not relieved by tylenol @ Q6H PRN PO 08/12/17 23:15 09/11/17 23:14 Hydromorphone HCl (Dilaudid Inj) 0.5 mg Q3H PRN IV 08/12/17 23:15 08/26/17 23:14 Miscellaneous Information (Consult) 1 ea DAILY PRN N/A 08/13/17 08:00 09/12/17 07:59 Doxycycline Hyclate (Vibramycin Cap) 100 mg BID PO 08/13/17 08:00 08/20/17 07:59 08/13/17 07:47 100 MG Albuterol/ Ipratropium (Duoneb) 3 ml Q2H PRN INH 08/12/17 23:15 09/11/17 23:14 Lorazepam (Ativan Inj) 0.5 mg Q4H PRN IV 08/12/17 23:15 09/11/17 23:14 Aspirin (Ecotrin Tab) 81 mg QAM PO 08/13/17 08:00 09/12/17 07:59 08/13/17 07:47 81 MG Piperacillin Sod/ Tazobactam Sod 3.375 gm/Dextrose 115 ml @ 28.75 mls/ hr Q8H IV 08/13/17 02:00 08/23/17 01:59 08/13/17 09:31 28.75 MLS/HR Benzonatate (Tessalon Perles Cap) 100 mg Q8H PRN PO 08/13/17 04:15 09/12/17 04:14 08/13/17 06:22 100 MG Ferrous Sulfate (Feosol Tab) 325 mg BIDM PO 08/13/17 17:00 09/12/17 16:59 08/13/17 16:44 325 MG Levalbuterol (Xopenex 0.63 Mg/ 3 Ml Neb) 0.63 mg Q6RWA INH 08/13/17 10:00 09/12/17 09:59 08/13/17 14:14 0.63 MG Insulin Glargine (Lantus Solostar Pen) BID SC 08/13/17 20:00 09/12/17 19:59 Insulin Aspart (novoLOG ASPART) SLIDING SCALE TODAY@0000,0400 SC 08/14/17 00:00 08/14/17 04:01
[2017-08-13] MEDS: INSULIN GLARGINE SOLOSTAR 100 UNITS/ML 3 ML PEN SC SCH (18:19)
[2017-08-13 19:03] VITALS: PULSE 89; O2SAT 96
[2017-08-13 23:03] VITALS: BP 139/72; PULSE 87; TEMP 37.8; O2SAT 97
[2017-08-14] MEDS: PIPERACILL/TAZOBAC IV 3.375 GM in DEXTROSE 5% 100ML IV SCH (01:42)
[2017-08-14] MEDS: INSULIN ASPART 100 UNITS/ML 3 ML PEN SC SCH ×6 (04:00→20:36)
[2017-08-14 06:58] LABS: BASO % 0.2 %; BASO ABS # 0.02 K/uL (0-0.2); EOS ABS # 0.17 K/uL (0-0.5); HEMATOCRIT 31.4 % (42-52); HEMOGLOBIN 10.8 g/dL (14.0-18.0); IG# 0.03 K/uL (0.00-0.02); LYMPH % 12.4 %; LYMPH ABS # 1.08 K/uL (1.2-3.4); MEAN CELL VOLUME 83.7 fL (80-100); MEAN CORPUSCULAR HEMOGLOBIN 28.8 pg (25-34); MEAN CORPUSCULAR HGB CONC 34.4 g/dl (32-36); MEAN PLATELET VOLUME 10.2 fL (7.4-10.4); MONO % 8.7 %; MONO ABS # 0.76 K/uL (0.11-0.59); NEUT % 76.4 %; NEUT ABS # 6.65 K/uL (1.4-6.5); PLATELET COUNT 237 K/uL (130-400); RED CELL DISTRIBUTION WIDTH CV 12.8 % (11.5-14.5); RED CELL DISTRIBUTION WIDTH SD 39.2 fL (36.4-46.3); WHITE BLOOD COUNT 8.71 K/uL (4.8-10.8)
[2017-08-14 07:10] VITALS: BP 132/74; PULSE 78; TEMP 37.5; O2SAT 96
[2017-08-14 07:16] VITALS: PULSE 78; O2SAT 97
[2017-08-14] MEDS: LEVALBUTEROL 0.63MG/3 ML NEB INH SCH (07:16)
[2017-08-14 07:27] LABS: CALCIUM 8.4 mg/dl (8.5-10.1); CREATININE 1.23 mg/dl (0.60-1.40); POTASSIUM 3.6 mmol/L (3.5-5.1)
[2017-08-14] MEDS: DOXYCYCLINE HYCLATE 100 MG CAP PO SCH ×2 (08:43→20:37)
[2017-08-14] MEDS: FERROUS SULFATE 325 MG TAB PO SCH ×2 (08:44→16:55)
[2017-08-14] MEDS: ASPIRIN 81 MG ECTAB PO SCH (08:44)
[2017-08-14] MEDS: INSULIN GLARGINE SOLOSTAR 100 UNITS/ML 3 ML PEN SC SCH ×2 (08:47→20:40)
[2017-08-14] MEDS ORDERED: ROCEPHIN CONSULT PHARMACY PRN (08:55)
--- NOTE | 2017-08-14 09:04 | Pharmacy Progress Note ---
Pharmacy Glycemic Short Note 2 Date of Service Aug 14, 2017. OUTPATIENT ANTIDIABETIC REGIMEN: * Novolin R sliding scale (not compliant per rn diabetes educator note) * glipizide 10 mg PO BID * metformin 1 gm PO BID ASSESSMENT: * Mr Monzon is a 67 y/o M with a PMH of WPW, HTN, HLD, and poorly controlled type 2 diabetes (goal HbA1C per the Elements of Diabetes Care Scoring Scale is 6.6-7.5%) who presented with a UTI. * Yesterday, the patient received a total of 59 units of insulin with 28 units of basal. Blood sugars were [phone]. Fasting this morning was 121 mg/dL. At the midnight check, the nurse gave the patient 3 units of Novolog for a BSG of 233 mg/dL, but the chart states blood sugar was 129 mg/dL. * Today's fasting is within goal range. Since the patient received 28 units of Lantus yesterday, reasonable to continue at least 14 units twice daily with higher dose available is blood sugars trend upwards. Post-prandial blood sugars appear appropriately controlled with tightened Novolog (parameters tightened at dinner yesterday). With elevated blood sugar at lunch, tightened carbohydrate coverage slightly. * Continue to hold oral diabetes medications while patient still acutely sick. PLAN FOR INPATIENT GLYCEMIC CONTROL: * Hold oral diabetes medications * Basal insulin * Lantus 14 units SQ BID if blood sugar less than 160 mg/dL... 18 units if greater than 160 mg/dL * Bolus insulin * NovoLog per scale ACHS or Q6hrs while NPO * Goal Range: Low 110 mg/dL - High 140 mg/dL * Correction Factor: 20 mg/dL/unit * Nutritional / Prandial insulin per carb ratio of 1 unit per 6 grams CHO consumed (tightened) PLAN FOR DISCHARGE: * Mr Monzon has uncontrolled diabetes at home. Recommend the following: * d/c glipizide (increased risk of hypoglycemia with insulin) AND regular insulin with meals * start Relion 70/30 20 units twice daily with meals * continue metformin 1 gm PO BID
[2017-08-14] MEDS ORDERED: PIPERACILL/TAZOBAC IV 3.375 GM in SODIUM CHLORIDE 0.9% 100ML 100 ML IV SCH (10:00)
[2017-08-14] MEDS ORDERED: LEVALBUTEROL 0.63MG/3 ML NEB INH PRN (10:00)
[2017-08-14] MEDS: CEFTRIAXONE SOD INJ 1000 MG in DEXTROSE 5% 50ML IV SCH (10:27)
[2017-08-14 14:26] VITALS: BP 106/71; PULSE 74; TEMP 37; O2SAT 98
[2017-08-14] MEDS: BENZONATATE 100MG CAP PO PRN (16:09)
[2017-08-14] MEDS ORDERED: MAGNESIUM HYDROXIDE SUSP 30 ML UDC PO PRN (16:30)
--- NOTE | 2017-08-14 17:55 | Progress Note ---
Medicine Progress Note Date & Time of Visit: Aug 14, 2017 at 17:51. Subjective Patient seen sleeping but easily awakened Comfortable States he feels that he is continuing to improve Has more energy today No urinary symptoms, flank pain, back pain No fevers chills Cough improving, no dyspnea Ambulating in the room with no problems No other symptoms Objective Last 8 Hrs Date Time Temp Pulse Resp B/P (MAP) Pulse Ox O2 Delivery O2 Flow Rate FiO2 08/14/17 16:00 Room Air 08/14/17 14:26 37.0 74 22 106/71 (83) 98 Room Air Physical Exam: General-oriented 3, not in distress, speaks in sentences with no effort Eyes-anicteric Neck- supple, no JVD Lungs- clear breath sounds bilaterally, no rales, no wheezes Heart- regular rhythm; no murmur, normal rate Abdomen- normal bowel sounds, soft, nontender, nondistended No CVA tenderness, no suprapubic tenderness Extremities- no pretibial edema, no calf tenderness Neuro- alert, oriented x 3; no gross focal neurologic deficits Skin- warm & dry Laboratory Results: Last 24 Hours Test 08/13/17 20:30 08/13/17 23:53 08/14/17 04:00 08/14/17 06:10 Bedside Glucose 202 mg/dl 129 mg/dl 123 mg/dl White Blood Count 8.71 K/uL Red Blood Count 3.75 M/uL Hemoglobin 10.8 g/dL Hematocrit 31.4 % Mean Corpuscular Volume 83.7 fL Mean Corpuscular Hemoglobin 28.8 pg Mean Corpuscular Hemoglobin Concent 34.4 g/dl Platelet Count 237 K/uL Mean Platelet Volume 10.2 fL Neutrophils (%) (Auto) 76.4 % Lymphocytes (%) (Auto) 12.4 % Monocytes (%) (Auto) 8.7 % Eosinophils (%) (Auto) 2.0 % Basophils (%) (Auto) 0.2 % Neutrophils # (Auto) 6.65 K/uL Lymphocytes # (Auto) 1.08 K/uL Monocytes # (Auto) 0.76 K/uL Eosinophils # (Auto) 0.17 K/uL Basophils # (Auto) 0.02 K/uL RDW Standard Deviation 39.2 fL RDW Coefficient of Variation 12.8 % Immature Granulocyte % (Auto) 0.3 % Immature Granulocyte # (Auto) 0.03 K/uL Sodium Level 135 mmol/L Potassium Level 3.6 mmol/L Chloride Level 104 mmol/L Carbon Dioxide Level 25 mmol/L Anion Gap 6.0 mmol/L Blood Urea Nitrogen 16 mg/dl Creatinine 1.23 mg/dl Est Creatinine Clear Calc Drug Dose 63.7 ml/min Estimated GFR () 71.0 Estimated GFR (Non- 61.2 BUN/Creatinine Ratio 13.2 Random Glucose 119 mg/dl Calcium Level 8.4 mg/dl Test 08/14/17 07:25 08/14/17 11:32 08/14/17 16:40 Bedside Glucose 121 mg/dl 161 mg/dl 103 mg/dl Assessment & Plan 67-year-old male with history of diabetes type 2, hypertension, dyslipidemia, WPW syndrome, Presenting with weakness. SEPSIS SECONDARY TO PYELONEPHRITIS AND POSSIBLE ACUTE BRONCHITIS Remains afebrile, blood pressure stable Urine cultures E. coli, sensitive to ceftriaxone Blood cultures no growth to date Overall improving Change Zosyn to ceftriaxone Continue doxycycline Has received IV fluids ACUTE RENAL FAILURE LIKELY SECONDARY TO SEPSIS AND PRERENAL ETIOLOGY Resolved Management of sepsis as noted above Has received IV fluids RULE OUT RENAL MASS Seen on CT abdomen pelvis with no contrast We will order CT abdomen pelvis with contrast if renal function remains stable PULMONARY NODULES Follow-up as an outpatient per guidelines UNCONTROLLED DIABETES hemoglobin A1c 11.8 pharmacy glycemic control Consulted inclusion paraeducator consulted Uses regular insulin at home 3 times daily with meals, will need to simplify with Lantus daily dosing on discharge Also on metformin and glipizide at home Blood sugars improving Appreciate pharmacy glycemic control service recommendations HYPERTENSION Stable IRON DEFICIENCY ANEMIA Monitor hemoglobin Supplement iron We will need outpatient further workup DVT prophylaxis Hemoglobin low Hold heparin until active bleeding ruled out SCDs, ambulation encouraged Disposition Lives at home PT OT to be ordered Anticipate discharge to home when medically stable Current Inpatient Medications: Current Inpatient Medications Medications (Trade) Dose Ordered Sig/Asif Route Start Time Stop Time Status Last Admin Dose Admin Ioversol (Optiray 320) 100 ml UD PRN IV 08/12/17 17:15 08/16/17 17:14 Miscellaneous Information (Consult Glycemic Management Pharmacy) 1 ea DAILY PRN N/A 08/12/17 22:51 09/11/17 22:50 Menthol (Nice Walter) 1 walter PRN PRN WALTER 08/12/17 23:00 09/11/17 22:59 08/12/17 23:50 1 WALTER Insulin Aspart (novoLOG ASPART) SLIDING SCALE ACHS SC 08/13/17 06:30 09/12/17 06:29 08/14/17 12:25 11 UNITS Glucose (Glucose 40% Gel) 15-30 GRAMS 15 GRAMS... UD PRN PO 08/12/17 23:15 09/11/17 23:14 Glucose (Glucose Chew Tab) 4-8 Tablets 4 Tabl... UD PRN PO 08/12/17 23:15 09/11/17 23:14 Dextrose (Dextrose 50% 50ML Syringe) 25-50ML OF 50% DW IV FOR... UD PRN IV 08/12/17 23:15 09/11/17 23:14 Glucagon (Glucagon Inj) 1 mg UD PRN SQ 08/12/17 23:15 09/11/17 23:14 Acetaminophen (Tylenol Tab) 650 mg Q4H PRN PO 08/12/17 23:15 09/11/17 23:14 Prochlorperazine Edisylate 5 mg/ Syringe 5 ml @ 5 mls/min Q6H PRN IV 08/12/17 23:15 09/11/17 23:14 08/13/17 03:54 5 MLS/MIN Tramadol HCl (Ultram Tab) not relieved by tylenol @ Q6H PRN PO 08/12/17 23:15 09/11/17 23:14 Hydromorphone HCl (Dilaudid Inj) 0.5 mg Q3H PRN IV 08/12/17 23:15 08/26/17 23:14 Doxycycline Hyclate (Vibramycin Cap) 100 mg BID PO 08/13/17 08:00 08/20/17 07:59 08/14/17 08:43 100 MG Albuterol/ Ipratropium (Duoneb) 3 ml Q2H PRN INH 08/12/17 23:15 09/11/17 23:14 Lorazepam (Ativan Inj) 0.5 mg Q4H PRN IV 08/12/17 23:15 09/11/17 23:14 Aspirin (Ecotrin Tab) 81 mg QAM PO 08/13/17 08:00 5/4/18 07:59 08/14/17 08:44 81 MG Benzonatate (Tessalon Perles Cap) 100 mg Q8H PRN PO 08/13/17 04:15 09/12/17 04:14 08/14/17 16:09 100 MG Ferrous Sulfate (Feosol Tab) 325 mg BIDM PO 08/13/17 17:00 09/12/17 16:59 08/14/17 16:55 325 MG Insulin Glargine (Lantus Solostar Pen) BID SC 08/13/17 17:30 09/12/17 17:29 08/14/17 08:47 14 UNITS Levalbuterol (Xopenex 0.63 Mg/ 3 Ml Neb) 0.63 mg Q4H PRN INH 08/14/17 10:00 09/12/17 09:59 Miscellaneous Information (Pharmacy Consult) 1 ea UD PRN N/A 08/14/17 08:55 09/13/17 08:54 Ceftriaxone Sodium 1000 mg/ Dextrose 60 ml @ 120 mls/hr Q24H IV 08/14/17 10:00 08/24/17 09:59 08/14/17 10:27 120 MLS/HR Magnesium Hydroxide (Milk Of Magnesia Susp) 30 ml Q6H PRN PO 08/14/17 16:30 09/13/17 16:29 08/14/17 16:55 30 ML
[2017-08-14] MEDS ORDERED: GUAIFENESIN 200 MG TAB PO PRN (18:30)
[2017-08-14] MEDS: ACETAMINOPHEN 325 MG TAB PO PRN (22:58)
[2017-08-14 23:10] VITALS: BP 129/81; PULSE 84; TEMP 37.8; O2SAT 96
[2017-08-15 06:50] LABS: BASO % 0.2 %; BASO ABS # 0.02 K/uL (0-0.2); EOS % 1.2 %; EOS ABS # 0.14 K/uL (0-0.5); HEMATOCRIT 33.9 % (42-52); HEMOGLOBIN 11.6 g/dL (14.0-18.0); IG# 0.03 K/uL (0.00-0.02); LYMPH % 7.5 %; LYMPH ABS # 0.87 K/uL (1.2-3.4); MEAN CELL VOLUME 84.3 fL (80-100); MEAN CORPUSCULAR HEMOGLOBIN 28.9 pg (25-34); MEAN CORPUSCULAR HGB CONC 34.2 g/dl (32-36); MEAN PLATELET VOLUME 9.9 fL (7.4-10.4); MONO % 5.7 %; MONO ABS # 0.66 K/uL (0.11-0.59); NEUT % 85.1 %; NEUT ABS # 9.89 K/uL (1.4-6.5); PLATELET COUNT 239 K/uL (130-400); RED CELL DISTRIBUTION WIDTH CV 12.8 % (11.5-14.5); RED CELL DISTRIBUTION WIDTH SD 39.3 fL (36.4-46.3); WHITE BLOOD COUNT 11.61 K/uL (4.8-10.8)
[2017-08-15 07:22] LABS: CALCIUM 8.9 mg/dl (8.5-10.1); CREATININE 1.19 mg/dl (0.60-1.40); POTASSIUM 3.7 mmol/L (3.5-5.1)
[2017-08-15 07:31] VITALS: BP 128/80; PULSE 93; TEMP 37.7; O2SAT 94
[2017-08-15 07:38] VITALS: O2SAT 94
[2017-08-15] MEDS: DOXYCYCLINE HYCLATE 100 MG CAP PO SCH ×2 (08:06→21:21)
[2017-08-15] MEDS: FERROUS SULFATE 325 MG TAB PO SCH ×2 (08:07→16:43)
[2017-08-15] MEDS: ASPIRIN 81 MG ECTAB PO SCH (08:23)
--- NOTE | 2017-08-15 08:40 | Pharmacy Progress Note ---
Pharmacy Glycemic Short Note 2 Date of Service Aug 15, 2017. OUTPATIENT ANTIDIABETIC REGIMEN: * Novolin R sliding scale (not compliant per environmental educator note) * glipizide 10 mg PO BID * metformin 1 gm PO BID ASSESSMENT: * Mr Monzon is a 67 y/o M with a PMH of WPW, HTN, HLD, and poorly controlled type 2 diabetes (goal HbA1C per the Elements of Diabetes Care Scoring Scale is 6.6-7.5%) who presented with a UTI. * Yesterday, the patient received a total of 49 units of insulin with 28 units of basal. Blood sugars were [phone]. Fasting this morning was 95 mg/dL. * Today's fasting is below goal range. Since the patient received 28 units of Lantus yesterday, reasonable to reduce basal by 20% to [address] Baumann, patient would prefer one dose of basal and Lantus is covered. Give 24 hour basal coverage at lunch and then tomorrow with breakfast. Post-prandial blood sugars appear appropriately controlled with tightened Novolog (parameters tightened at lunch yesterday). * Restart metformin today. Hold glipizide as not recommended inpatient. PLAN FOR INPATIENT GLYCEMIC CONTROL: * metformin 1 gm PO BID * Basal insulin * Lantus 22 units SQ daily starting with lunch today * Bolus insulin * NovoLog per scale ACHS or Q6hrs while NPO * Goal Range: Low 110 mg/dL - High 140 mg/dL * Correction Factor: 20 mg/dL/unit * Nutritional / Prandial insulin per carb ratio of 1 unit per 6 grams CHO consumed PLAN FOR DISCHARGE: * Mr Monzon has uncontrolled diabetes at home. Recommend the following: * d/c glipizide (increased risk of hypoglycemia with insulin) AND regular insulin with meals * Start Lantus 22 units daily (will need to be titrated upwards as an outpatient) --- if patient cannot afford Lantus then Relion 16 units twice daily with meals appropriate * continue metformin 1 gm PO BID
[2017-08-15] MEDS: INSULIN ASPART 100 UNITS/ML 3 ML PEN SC SCH ×4 (08:45→21:00)
[2017-08-15] MEDS ORDERED: METFORMIN HCL 500 MG TAB PO SCH (09:00)
[2017-08-15] MEDS ORDERED: DOCUSATE SODIUM/SENNA 50/8.6MG TAB PO ONE (09:30)
--- NOTE | 2017-08-15 09:55 | Progress Note ---
Medicine Progress Note Date & Time of Visit: Aug 15, 2017 at 09:52. Subjective Seen resting in bed comfortable Reports persistent cough with white/clear phlegm Denies shortness of breath Had some low-grade fever overnight No back or flank pain No dysuria No other symptoms Objective Last 8 Hrs Date Time Temp Pulse Resp B/P (MAP) Pulse Ox O2 Delivery O2 Flow Rate FiO2 08/15/17 07:38 94 Room Air 08/15/17 07:31 37.7 93 18 128/80 (96) 94 Room Air Physical Exam: General-oriented 3, not in distress, speaks in sentences with no effort Eyes-anicteric Neck- supple, no JVD Lungs- clear breath sounds bilaterally, no rales, no wheezes Heart- regular rhythm; no murmur, normal rate Abdomen- normal bowel sounds, soft, nontender, nondistended No CVA tenderness, no suprapubic tenderness Extremities- no pretibial edema, no calf tenderness Neuro- alert, oriented x 3; no gross focal neurologic deficits Skin- warm & dry Laboratory Results: Last 24 Hours Test 08/14/17 11:32 08/14/17 16:40 08/14/17 20:33 08/15/17 05:57 Bedside Glucose 161 mg/dl 103 mg/dl 131 mg/dl White Blood Count 11.61 K/uL Red Blood Count 4.02 M/uL Hemoglobin 11.6 g/dL Hematocrit 33.9 % Mean Corpuscular Volume 84.3 fL Mean Corpuscular Hemoglobin 28.9 pg Mean Corpuscular Hemoglobin Concent 34.2 g/dl Platelet Count 239 K/uL Mean Platelet Volume 9.9 fL Neutrophils (%) (Auto) 85.1 % Lymphocytes (%) (Auto) 7.5 % Monocytes (%) (Auto) 5.7 % Eosinophils (%) (Auto) 1.2 % Basophils (%) (Auto) 0.2 % Neutrophils # (Auto) 9.89 K/uL Lymphocytes # (Auto) 0.87 K/uL Monocytes # (Auto) 0.66 K/uL Eosinophils # (Auto) 0.14 K/uL Basophils # (Auto) 0.02 K/uL RDW Standard Deviation 39.3 fL RDW Coefficient of Variation 12.8 % Immature Granulocyte % (Auto) 0.3 % Immature Granulocyte # (Auto) 0.03 K/uL Sodium Level 135 mmol/L Potassium Level 3.7 mmol/L Chloride Level 100 mmol/L Carbon Dioxide Level 28 mmol/L Anion Gap 7.0 mmol/L Blood Urea Nitrogen 18 mg/dl Creatinine 1.19 mg/dl Est Creatinine Clear Calc Drug Dose 65.9 ml/min Estimated GFR () 73.9 Estimated GFR (Non- 63.7 BUN/Creatinine Ratio 15.4 Random Glucose 95 mg/dl Calcium Level 8.9 mg/dl Test 08/15/17 07:31 Bedside Glucose 87 mg/dl Assessment & Plan 67-year-old male with history of diabetes type 2, hypertension, dyslipidemia, WPW syndrome, Presenting with weakness. SEPSIS SECONDARY TO PYELONEPHRITIS AND POSSIBLE ACUTE BRONCHITIS Remains afebrile, blood pressure stable Urine cultures E. coli, sensitive to ceftriaxone Blood cultures no growth to date Positive low-grade fever Continue ceftriaxone day #2 Continue doxycycline Restart IV fluids ACUTE RENAL FAILURE LIKELY SECONDARY TO SEPSIS AND PRERENAL ETIOLOGY Resolved Management of sepsis as noted above Has received IV fluids RULE OUT RENAL MASS Seen on CT abdomen pelvis with no contrast We will order CT abdomen pelvis with contrast if renal function remains stable -- CT abd/pelvis today with IV contrast hold Metformin x 2 days IV NSS COUGH -- repeat 2 view chest xray to rule out pneumonia on Doxy start Zyrtec for possible postnasal drip secondary to allergic rhinitis PULMONARY NODULES Follow-up as an outpatient per guidelines UNCONTROLLED DIABETES hemoglobin A1c 11.8 pharmacy glycemic control Consulted provider network mgr consulted Uses regular insulin at home 3 times daily with meals, will need to simplify with Lantus daily dosing on discharge Also on metformin and glipizide at home Blood sugars improving Appreciate pharmacy glycemic control service recommendations HYPERTENSION Stable IRON DEFICIENCY ANEMIA Hemoglobin stable Supplement iron We will need outpatient further workup DVT prophylaxis Lovenox SCDs, ambulation encouraged Disposition Lives at home PT OT ordered Anticipate discharge to home when medically stable Current Inpatient Medications: Current Inpatient Medications Medications (Trade) Dose Ordered Sig/Asif Route Start Time Stop Time Status Last Admin Dose Admin Ioversol (Optiray 320) 100 ml UD PRN IV 08/12/17 17:15 08/16/17 17:14 Miscellaneous Information (Consult Glycemic Management Pharmacy) 1 ea DAILY PRN N/A 08/12/17 22:51 09/11/17 22:50 Menthol (Nice Walter) 1 walter PRN PRN WALTER 08/12/17 23:00 09/11/17 22:59 08/12/17 23:50 1 WALTER Insulin Aspart (novoLOG ASPART) SLIDING SCALE ACHS SC 08/13/17 06:30 09/12/17 06:29 08/15/17 08:45 6 UNITS Glucose (Glucose 40% Gel) 15-30 GRAMS 15 GRAMS... UD PRN PO 08/12/17 23:15 09/11/17 23:14 Glucose (Glucose Chew Tab) 4-8 Tablets 4 Tabl... UD PRN PO 08/12/17 23:15 09/11/17 23:14 Dextrose (Dextrose 50% 50ML Syringe) 25-50ML OF 50% DW IV FOR... UD PRN IV 08/12/17 23:15 09/11/17 23:14 Glucagon (Glucagon Inj) 1 mg UD PRN SQ 08/12/17 23:15 09/11/17 23:14 Acetaminophen (Tylenol Tab) 650 mg Q4H PRN PO 08/12/17 23:15 09/11/17 23:14 08/14/17 22:58 650 MG Prochlorperazine Edisylate 5 mg/ Syringe 5 ml @ 5 mls/min Q6H PRN IV 08/12/17 23:15 09/11/17 23:14 08/13/17 03:54 5 MLS/MIN Tramadol HCl (Ultram Tab) not relieved by tylenol @ Q6H PRN PO 08/12/17 23:15 09/11/17 23:14 Hydromorphone HCl (Dilaudid Inj) 0.5 mg Q3H PRN IV 08/12/17 23:15 08/26/17 23:14 Doxycycline Hyclate (Vibramycin Cap) 100 mg BID PO 08/13/17 08:00 08/20/17 07:59 08/15/17 08:06 100 MG Albuterol/ Ipratropium (Duoneb) 3 ml Q2H PRN INH 08/12/17 23:15 09/11/17 23:14 Lorazepam (Ativan Inj) 0.5 mg Q4H PRN IV 08/12/17 23:15 09/11/17 23:14 Aspirin (Ecotrin Tab) 81 mg QAM PO 08/13/17 08:00 09/12/17 07:59 08/15/17 08:23 81 MG Benzonatate (Tessalon Perles Cap) 100 mg Q8H PRN PO 08/13/17 04:15 09/12/17 04:14 08/14/17 16:09 100 MG Ferrous Sulfate (Feosol Tab) 325 mg BIDM PO 08/13/17 17:00 09/12/17 16:59 08/15/17 08:07 325 MG Levalbuterol (Xopenex 0.63 Mg/ 3 Ml Neb) 0.63 mg Q4H PRN INH 08/14/17 10:00 09/12/17 09:59 Miscellaneous Information (Pharmacy Consult) 1 ea UD PRN N/A 08/14/17 08:55 09/13/17 08:54 Ceftriaxone Sodium 1000 mg/ Dextrose 60 ml @ 120 mls/hr Q24H IV 08/14/17 10:00 08/24/17 09:59 08/14/17 10:27 120 MLS/HR Magnesium Hydroxide (Milk Of Magnesia Susp) 30 ml Q6H PRN PO 08/14/17 16:30 09/13/17 16:29 08/14/17 16:55 30 ML Guaifenesin (Organidin Nr Tab) 200 mg Q4H PRN PO 08/14/17 18:30 09/13/17 18:29 08/14/17 18:48 200 MG Insulin Glargine (Lantus Solostar Pen) 22 units QAM SC 08/15/17 12:00 09/14/17 11:59 Metformin HCl (Glucophage Tab) 1,000 mg BIDM PO 08/15/17 09:00 09/14/17 08:59 08/15/17 09:26 1,000 MG
[2017-08-15] MEDS ORDERED: CETIRIZINE HCL 10 MG TAB PO ONE (10:00)
[2017-08-15] MEDS ORDERED: OPTIRAY 320 IV PRN (10:00)
[2017-08-15] MEDS: CEFTRIAXONE SOD INJ 1000 MG in DEXTROSE 5% 50ML IV SCH (10:09)
[2017-08-15] MEDS: SODIUM CHLORIDE 0.9% 1000ML 1,000 ML IV SCH (11:02)
[2017-08-15] MEDS ORDERED: INSDGIPEN SC (11:35)
[2017-08-15] MEDS ORDERED: ENOXAPARIN 40 MG/0.4 ML SYR SQ ONE (11:45)
--- NOTE | 2017-08-15 12:00 | DIAGNOSTIC IMAGING REPORT ---
CHEST 2 VIEWS ROUTINE CLINICAL HISTORY: Cough. COMPARISON STUDY: Chest radiograph August 12, 2017. FINDINGS: There is mild elevation of the right hemidiaphragm. No pneumothorax or pleural effusion is noted. There is no evidence for pulmonary edema. Cardiomediastinal silhouette is normal. IMPRESSION: No acute cardiopulmonary findings. Electronically signed by: Austen Gil M.D. 08/15/2017 11:58 AM Dictated Date/Time: 08/15/2017 11:58 AM
[2017-08-15] MEDS: INSULIN GLARGINE SOLOSTAR 100 UNITS/ML 3 ML PEN SC SCH (12:08)
--- NOTE | 2017-08-15 12:14 | DIAGNOSTIC IMAGING REPORT ---
ABDOMEN AND PELVIS CT WITH IV CONTRAST CT DOSE: 388.10 mGy.cm HISTORY: Abnormal CT. Follow-up. r/o left renal mass TECHNIQUE: Multiaxial CT images of the abdomen and pelvis were performed following the use of intravenous contrast. A dose lowering technique was utilized adhering to the principles of ALARA. COMPARISON STUDY: Abdomen and pelvis CT 08/12/2017. FINDINGS: There are few subcentimeter nodular densities at the right lung base. Dominant nodule measures 4 mm on image 21. Small focus of tree-in-bud groundglass nodules within the a.c. of the lingula. This favors mild inflammatory/infectious change. No pneumoperitoneum. No pneumatosis. No suspicious lytic or blastic osseous lesions. No hepatic or splenic masses. The adrenal glands, pancreas, and gallbladder are unremarkable. A few mildly enlarged left. Lymph nodes. Small fat-containing right inguinal hernia. Moderate stool within the colon. No bowel wall thickening or obstruction. Mild anterior bladder wall thickening. There is also urothelial thickening and periureteral fat stranding within the left ureter. Bilateral perinephric inflammatory changes again noted. This is most pronounced within the upper pole of the left kidney. There is heterogeneous enhancement within the upper pole the left kidney. This is consistent with a pyelonephritis. No hydronephrosis. No ureteral stones. There are 3 hypodense lesions within the upper pole the left kidney with the largest measuring 1.2 cm. These favor cysts rather than abscesses. Small hypodense areas within the right kidney may represent areas of scarring or could also represent pyelonephritis. No definite renal masses seen within the upper pole the left kidney. IMPRESSION: 1. Heterogeneous enhancement involving the upper pole of the left kidney with extensive surrounding perinephric fat stranding. This is consistent with a pyelonephritis. However, a follow-up a 1-[address] is recommended once the patient's pyelonephritis has completely resolved to ensure resolution of this abnormality. 2. Mild right perinephric fat stranding. There are few small subcentimeter hypodense areas within the right kidney which could be due to scarring or may also represent a pyelonephritis. 3. Left periaortic lymphadenopathy. This is likely reactive. 4. Mild bladder wall thickening suggestive of a cystitis. There is also mild urothelial thickening and periureteral fat stranding at the left ureter. 5. Additional findings as described above. Electronically signed by: Jimmy Sam M.D. 08/15/2017 12:13 PM Dictated Date/Time: 08/15/2017 11:51 AM
[2017-08-15] MEDS: ACETAMINOPHEN 325 MG TAB PO PRN (14:49)
[2017-08-15] MEDS: POLYETHYLENE (MIRALAX) 17 GM PACK PO PRN (15:22)
[2017-08-15 15:37] VITALS: BP 114/74; PULSE 85; TEMP 38.1; O2SAT 97
[2017-08-15 16:12] VITALS: TEMP 37
[2017-08-15] MEDS: BENZONATATE 100MG CAP PO PRN (16:13)
[2017-08-15 23:46] VITALS: BP 121/79; PULSE 90; TEMP 38.6; O2SAT 95
[2017-08-16] VITALS: O2SAT 94
[2017-08-16] MEDS: SODIUM CHLORIDE 0.9% 1000ML 1,000 ML IV SCH ×2 (03:24→20:31)
[2017-08-16 07:28] VITALS: BP 142/78; PULSE 83; TEMP 37.6; O2SAT 94
[2017-08-16 07:42] LABS: BASO % 0.2 %; BASO ABS # 0.02 K/uL (0-0.2); EOS % 0.8 %; EOS ABS # 0.09 K/uL (0-0.5); HEMATOCRIT 33.2 % (42-52); HEMOGLOBIN 11.6 g/dL (14.0-18.0); IG# 0.05 K/uL (0.00-0.02); LYMPH % 9.3 %; LYMPH ABS # 1.02 K/uL (1.2-3.4); MEAN CELL VOLUME 83.6 fL (80-100); MEAN CORPUSCULAR HEMOGLOBIN 29.2 pg (25-34); MEAN CORPUSCULAR HGB CONC 34.9 g/dl (32-36); MEAN PLATELET VOLUME 9.5 fL (7.4-10.4); MONO % 7.1 %; MONO ABS # 0.78 K/uL (0.11-0.59); NEUT % 82.1 %; NEUT ABS # 9.05 K/uL (1.4-6.5); PLATELET COUNT 241 K/uL (130-400); RED CELL DISTRIBUTION WIDTH CV 12.8 % (11.5-14.5); RED CELL DISTRIBUTION WIDTH SD 39.1 fL (36.4-46.3); WHITE BLOOD COUNT 11.01 K/uL (4.8-10.8)
[2017-08-16 08:19] LABS: CALCIUM 8.5 mg/dl (8.5-10.1); CREATININE 1.28 mg/dl (0.60-1.40); POTASSIUM 3.7 mmol/L (3.5-5.1)
[2017-08-16] MEDS: PROCHLORPERAZINE INJ 5 MG in SYRINGE 4 ML IV PRN (08:41)
[2017-08-16] MEDS: ENOXAPARIN 40 MG/0.4 ML SYR SQ SCH (08:46)
[2017-08-16] MEDS: FERROUS SULFATE 325 MG TAB PO SCH ×2 (10:14→17:38)
[2017-08-16] MEDS: ASPIRIN 81 MG ECTAB PO SCH (10:14)
[2017-08-16] MEDS: DOXYCYCLINE HYCLATE 100 MG CAP PO SCH ×2 (10:15→20:31)
[2017-08-16] MEDS: DOCUSATE SODIUM/SENNA 50/8.6MG TAB PO SCH (10:15)
[2017-08-16] MEDS: CETIRIZINE HCL 10 MG TAB PO SCH (10:16)
[2017-08-16] MEDS: CEFTRIAXONE SOD INJ 1000 MG in DEXTROSE 5% 50ML IV SCH (10:16)
[2017-08-16] MEDS: INSULIN ASPART 100 UNITS/ML 3 ML PEN SC SCH ×4 (10:22→20:36)
[2017-08-16] MEDS: INSULIN GLARGINE SOLOSTAR 100 UNITS/ML 3 ML PEN SC SCH (10:23)
[2017-08-16] MEDS ORDERED: ENOXAPARIN 40 MG/0.4 ML SYR SQ ONE (11:30)
[2017-08-16] MEDS ORDERED: LACTULOSE SYRUP 10 GM/15 ML BTL 473 ML PO PRN (12:45)
[2017-08-16] MEDS ORDERED: LACTULOSE SYRUP 10 GM/15 ML BTL 473 ML PO ONE (13:00)
[2017-08-16 15:24] VITALS: BP 124/67; PULSE 74; TEMP 37; O2SAT 96
[2017-08-16 16:00] VITALS: O2SAT 96
--- NOTE | 2017-08-16 17:22 | Progress Note ---
Medicine Progress Note Date & Time of Visit: Aug 16, 2017 at 17:18. Subjective Seen sitting up in bedside chair, having lunch, from visiting Was having fever spikes overnight Today he says he feels improved compared to yesterday No chills, flank pain or back pain, dysuria Cough improving, no sputum, no dyspnea No other symptoms Objective Last 8 Hrs Date Time Temp Pulse Resp B/P (MAP) Pulse Ox O2 Delivery O2 Flow Rate FiO2 08/16/17 16:00 96 Room Air 08/16/17 15:24 37.0 74 20 124/67 (86) 96 Room Air 08/16/17 14:57 Room Air Physical Exam: General-oriented 3, not in distress, speaks in sentences with no effort Eyes-anicteric Neck-no JVD Lungs- clear breath sounds bilaterally, no crackles, no wheezing Heart- regular rhythm; no murmur, normal rate Abdomen- normal bowel sounds, soft, nontender, nondistended No CVA tenderness, no suprapubic tenderness Extremities- no pretibial edema, no calf tenderness Neuro- alert, oriented x 3; no gross focal neurologic deficits Skin- warm & dry Laboratory Results: Last 24 Hours Test 08/15/17 18:09 08/15/17 20:47 08/16/17 07:34 08/16/17 07:43 Troponin I < 0.015 ng/ml Bedside Glucose 139 mg/dl 116 mg/dl White Blood Count 11.01 K/uL Red Blood Count 3.97 M/uL Hemoglobin 11.6 g/dL Hematocrit 33.2 % Mean Corpuscular Volume 83.6 fL Mean Corpuscular Hemoglobin 29.2 pg Mean Corpuscular Hemoglobin Concent 34.9 g/dl Platelet Count 241 K/uL Mean Platelet Volume 9.5 fL Neutrophils (%) (Auto) 82.1 % Lymphocytes (%) (Auto) 9.3 % Monocytes (%) (Auto) 7.1 % Eosinophils (%) (Auto) 0.8 % Basophils (%) (Auto) 0.2 % Neutrophils # (Auto) 9.05 K/uL Lymphocytes # (Auto) 1.02 K/uL Monocytes # (Auto) 0.78 K/uL Eosinophils # (Auto) 0.09 K/uL Basophils # (Auto) 0.02 K/uL RDW Standard Deviation 39.1 fL RDW Coefficient of Variation 12.8 % Immature Granulocyte % (Auto) 0.5 % Immature Granulocyte # (Auto) 0.05 K/uL Sodium Level 133 mmol/L Potassium Level 3.7 mmol/L Chloride Level 99 mmol/L Carbon Dioxide Level 25 mmol/L Anion Gap 9.0 mmol/L Blood Urea Nitrogen 18 mg/dl Creatinine 1.28 mg/dl Est Creatinine Clear Calc Drug Dose 61.2 ml/min Estimated GFR () 67.6 Estimated GFR (Non- 58.3 BUN/Creatinine Ratio 14.1 Random Glucose 108 mg/dl Calcium Level 8.5 mg/dl Test 08/16/17 11:29 08/16/17 16:38 Bedside Glucose 264 mg/dl 231 mg/dl Date/Time Source Procedure Growth Status 08/16/17 13:01 Blood Blood Culture Pending Received 08/16/17 12:52 Blood Blood Culture Pending Received 08/16/17 13:50 Urine , Clean Catch Urine Culture Pending Received Assessment & Plan 67-year-old male with history of diabetes type 2, hypertension, dyslipidemia, WPW syndrome, Presenting with weakness. SEPSIS SECONDARY TO PYELONEPHRITIS AND POSSIBLE ACUTE BRONCHITIS Urine cultures E. coli, sensitive to ceftriaxone Blood cultures no growth to date Positive intermittent fever CT abdomen and pelvis: Negative for renal abscess We will repeat urine culture and blood culture Continue ceftriaxone day #3 Continue doxycycline Continue IV fluids ACUTE RENAL FAILURE LIKELY SECONDARY TO SEPSIS AND PRERENAL ETIOLOGY Resolved Management of sepsis as noted above Has received IV fluids RULE OUT RENAL MASS Seen on CT abdomen pelvis with no contrast We will order CT abdomen pelvis with contrast if renal function remains stable -- CT abd/pelvis today with IV contrast: Positive perinephric stranding consistent with pyelonephritis colic, advice repeat CT in 12 months hold Metformin x 2 days resume on Friday, August 18, 2017 IV NSS COUGH, POSSIBLE POSTNASAL DRIP RELATED, ACUTE BRONCHITIS -- repeat 2 view chest xray to rule out pneumonia: No pneumonia Cough improving Continue doxycycline Zyrtec started, continue PULMONARY NODULES Follow-up as an outpatient per guidelines UNCONTROLLED DIABETES hemoglobin A1c 11.8 pharmacy glycemic control Consulted rf manager consulted Uses regular insulin at home 3 times daily with meals, will need to simplify with Lantus daily dosing on discharge Also on metformin and glipizide at home Blood sugars improving Appreciate pharmacy glycemic control service recommendations HYPERTENSION Stable IRON DEFICIENCY ANEMIA Hemoglobin stable Supplement iron Patient needs outpatient further workup DVT prophylaxis Lovenox SCDs, ambulation encouraged Disposition Lives at home PT OT ordered Anticipate discharge to home when medically stable Current Inpatient Medications: Current Inpatient Medications Medications (Trade) Dose Ordered Sig/Asif Route Start Time Stop Time Status Last Admin Dose Admin Miscellaneous Information (Consult Glycemic Management Pharmacy) 1 ea DAILY PRN N/A 08/12/17 22:51 09/11/17 22:50 Menthol (Nice Walter) 1 walter PRN PRN WALTER 08/12/17 23:00 09/11/17 22:59 08/12/17 23:50 1 WALTER Insulin Aspart (novoLOG ASPART) SLIDING SCALE ACHS SC 08/13/17 06:30 09/12/17 06:29 08/16/17 13:02 11 UNITS Glucose (Glucose 40% Gel) 15-30 GRAMS 15 GRAMS... UD PRN PO 08/12/17 23:15 09/11/17 23:14 Glucose (Glucose Chew Tab) 4-8 Tablets 4 Tabl... UD PRN PO 08/12/17 23:15 09/11/17 23:14 Dextrose (Dextrose 50% 50ML Syringe) 25-50ML OF 50% DW IV FOR... UD PRN IV 08/12/17 23:15 09/11/17 23:14 Glucagon (Glucagon Inj) 1 mg UD PRN SQ 08/12/17 23:15 09/11/17 23:14 Acetaminophen (Tylenol Tab) 650 mg Q4H PRN PO 08/12/17 23:15 09/11/17 23:14 08/15/17 14:49 650 MG Prochlorperazine Edisylate 5 mg/ Syringe 5 ml @ 5 mls/min Q6H PRN IV 08/12/17 23:15 09/11/17 23:14 08/16/17 08:41 5 MLS/MIN Tramadol HCl (Ultram Tab) not relieved by tylenol @ Q6H PRN PO 08/12/17 23:15 09/11/17 23:14 Hydromorphone HCl (Dilaudid Inj) 0.5 mg Q3H PRN IV 08/12/17 23:15 08/26/17 23:14 Doxycycline Hyclate (Vibramycin Cap) 100 mg BID PO 08/13/17 08:00 08/20/17 07:59 08/16/17 10:15 100 MG Albuterol/ Ipratropium (Duoneb) 3 ml Q2H PRN INH 08/12/17 23:15 09/11/17 23:14 Lorazepam (Ativan Inj) 0.5 mg Q4H PRN IV 08/12/17 23:15 09/11/17 23:14 Aspirin (Ecotrin Tab) 81 mg QAM PO 08/13/17 08:00 09/12/17 07:59 08/16/17 10:14 81 MG Benzonatate (Tessalon Perles Cap) 100 mg Q8H PRN PO 08/13/17 04:15 09/12/17 04:14 08/15/17 16:13 100 MG Ferrous Sulfate (Feosol Tab) 325 mg BIDM PO 08/13/17 17:00 09/12/17 16:59 08/16/17 10:14 325 MG Levalbuterol (Xopenex 0.63 Mg/ 3 Ml Neb) 0.63 mg Q4H PRN INH 08/14/17 10:00 09/12/17 09:59 Miscellaneous Information (Pharmacy Consult) 1 ea UD PRN N/A 08/14/17 08:55 09/13/17 08:54 Ceftriaxone Sodium 1000 mg/ Dextrose 60 ml @ 120 mls/hr Q24H IV 08/14/17 10:00 08/24/17 09:59 08/16/17 10:16 120 MLS/HR Magnesium Hydroxide (Milk Of Magnesia Susp) 30 ml Q6H PRN PO 08/14/17 16:30 09/13/17 16:29 08/14/17 16:55 30 ML Guaifenesin (Organidin Nr Tab) 200 mg Q4H PRN PO 08/14/17 18:30 09/13/17 18:29 08/14/17 18:48 200 MG Insulin Glargine (Lantus Solostar Pen) 22 units QAM SC 08/15/17 12:00 09/14/17 11:59 08/16/17 10:23 22 UNITS Cetirizine HCl (zyrTEC TAB) 10 mg QAM PO 08/16/17 08:00 09/15/17 07:59 08/16/17 10:16 10 MG Sodium Chloride 1,000 ml @ 60 mls/hr [id number] IV 08/15/17 11:00 09/14/17 10:59 08/16/17 03:24 60 MLS/HR Enoxaparin Sodium (Lovenox Inj) 40 mg QAM SQ 08/16/17 08:00 09/15/17 07:59 08/16/17 08:46 40 MG Ioversol (Optiray 320) 125 ml UD PRN IV 08/15/17 10:00 08/19/17 09:59 Senna/Docusate Sodium (Senokot S Tab) 1 tab QAM PO 08/16/17 08:00 09/15/17 07:59 08/16/17 10:15 1 TAB Polyethylene (Miralax Powder Packet) 17 gm DAILY PRN PO 08/15/17 09:30 09/14/17 09:29 08/15/17 15:22 17 GM Lactulose (Chronulac Syrup) 15 gm TID PRN PO 08/16/17 12:45 09/15/17 12:44
[2017-08-16] MEDS: BENZONATATE 100MG CAP PO PRN (20:31)
[2017-08-16] MEDS: POLYETHYLENE (MIRALAX) 17 GM PACK PO PRN (21:35)
[2017-08-16 22:58] VITALS: BP 104/68; PULSE 76; TEMP 37.2; O2SAT 97
[2017-08-17 05:49] LABS: BASO % 0.4 %; BASO ABS # 0.03 K/uL (0-0.2); EOS % 2.6 %; EOS ABS # 0.19 K/uL (0-0.5); HEMATOCRIT 33.6 % (42-52); HEMOGLOBIN 11.4 g/dL (14.0-18.0); IG# 0.04 K/uL (0.00-0.02); LYMPH % 13.6 %; MEAN CELL VOLUME 85.1 fL (80-100); MEAN CORPUSCULAR HEMOGLOBIN 28.9 pg (25-34); MEAN CORPUSCULAR HGB CONC 33.9 g/dl (32-36); MEAN PLATELET VOLUME 9.7 fL (7.4-10.4); MONO % 10.9 %; NEUT ABS # 5.27 K/uL (1.4-6.5); PLATELET COUNT 259 K/uL (130-400); RED CELL DISTRIBUTION WIDTH CV 12.9 % (11.5-14.5); RED CELL DISTRIBUTION WIDTH SD 40.3 fL (36.4-46.3); WHITE BLOOD COUNT 7.33 K/uL (4.8-10.8)
[2017-08-17 06:32] LABS: CALCIUM 8.6 mg/dl (8.5-10.1); CREATININE 1.18 mg/dl (0.60-1.40); POTASSIUM 4.3 mmol/L (3.5-5.1)
[2017-08-17 07:00] VITALS: BP 120/76; PULSE 71; TEMP 36.9; O2SAT 97
[2017-08-17] MEDS: CETIRIZINE HCL 10 MG TAB PO SCH (08:46)
[2017-08-17] MEDS: DOCUSATE SODIUM/SENNA 50/8.6MG TAB PO SCH (08:47)
[2017-08-17] MEDS: DOXYCYCLINE HYCLATE 100 MG CAP PO SCH ×2 (08:47→20:30)
[2017-08-17] MEDS: FERROUS SULFATE 325 MG TAB PO SCH ×2 (08:47→17:37)
[2017-08-17] MEDS: ASPIRIN 81 MG ECTAB PO SCH (08:47)
[2017-08-17] MEDS: ENOXAPARIN 40 MG/0.4 ML SYR SQ SCH (08:49)
[2017-08-17] MEDS: INSULIN ASPART 100 UNITS/ML 3 ML PEN SC SCH ×4 (09:00→20:33)
[2017-08-17] MEDS: INSULIN GLARGINE SOLOSTAR 100 UNITS/ML 3 ML PEN SC SCH (09:01)
--- NOTE | 2017-08-17 09:17 | Pharmacy Progress Note ---
Pharmacy Glycemic Short Note 2 Date of Service Aug 17, 2017. OUTPATIENT ANTIDIABETIC REGIMEN: * Novolin R sliding scale (not compliant per clinical systems educator note) * glipizide 10 mg PO BID * metformin 1 gm PO BID ASSESSMENT: * Mr Monzon is a 67 y/o M with a PMH of WPW, HTN, HLD, and poorly controlled type 2 diabetes (goal HbA1C per the Elements of Diabetes Care Scoring Scale is 6.6-7.5%) who presented with a UTI. * Yesterday, the patient received a total of 61 units of insulin with 22 units of basal. Blood sugars were [phone]. Fasting this morning was 186 mg/ dL. * Today's fasting is above goal range. Since the patient received 22 units of Lantus yesterday, reasonable to increase basal by 20% to 26 units daily. Continue tightened Novolog from yesterday as patient did trend downwards appropriately. * Restart metformin tomorrow as that will be 48 hours after scan Hold glipizide as not recommended inpatient. PLAN FOR INPATIENT GLYCEMIC CONTROL: * metformin 1 gm PO BID starting tomorrow * Basal insulin * Lantus 26 units SQ daily * Bolus insulin * NovoLog per scale ACHS or Q6hrs while NPO * Goal Range: Low 110 mg/dL - High 140 mg/dL * Correction Factor: 20 mg/dL/unit * Nutritional / Prandial insulin per carb ratio of 1 unit per 6 grams CHO consumed PLAN FOR DISCHARGE: * Mr Monzon has uncontrolled diabetes at home. Recommend the following: * d/c glipizide (increased risk of hypoglycemia with insulin) AND regular insulin with meals * Start Lantus 25 units daily (will need to be titrated upwards as an outpatient) --- if patient cannot afford Lantus then Relion 18 units twice daily with meals appropriate * continue metformin 1 gm PO BID
[2017-08-17] MEDS: CEFTRIAXONE SOD INJ 1000 MG in DEXTROSE 5% 50ML IV SCH (11:22)
[2017-08-17 14:46] VITALS: BP 118/71; PULSE 75; TEMP 36.6; O2SAT 97
[2017-08-17] MEDS ORDERED: LACTULOSE SYRUP 10 GM/15 ML BTL 473 ML PO PRN (15:15)
[2017-08-17 15:44] VITALS: O2SAT 97
--- NOTE | 2017-08-17 19:05 | Progress Note ---
Medicine Progress Note Date & Time of Visit: Aug 17, 2017 at 19:02. Subjective Seen resting in bed side chair, comfortable, in good spirits States he feels improved today compared to yesterday No fever since yesterday No abdominal pain, flank pain, problems urinating Denies shortness of breath, cough improving Positive BM No other symptoms Objective Last 8 Hrs Date Time Temp Pulse Resp B/P (MAP) Pulse Ox O2 Delivery O2 Flow Rate FiO2 08/17/17 15:44 97 Room Air 08/17/17 14:46 36.6 75 18 118/71 (87) 97 Room Air Physical Exam: General-oriented 3, not in distress, speaks in sentences with no effort Eyes-anicteric Neck-no JVD Lungs- clear breath sounds bilaterally, no rales or wheezes Heart- regular rhythm; no murmur, normal rate Abdomen- normal bowel sounds, soft, nontender, nondistended No CVA tenderness, no suprapubic tenderness Extremities- no pretibial edema, no calf tenderness Neuro- alert, oriented x 3; no gross focal neurologic deficits Skin- warm & dry Laboratory Results: Last 24 Hours Test 08/16/17 20:19 08/17/17 05:38 08/17/17 08:06 08/17/17 10:00 Bedside Glucose 184 mg/dl 207 mg/dl White Blood Count 7.33 K/uL Red Blood Count 3.95 M/uL Hemoglobin 11.4 g/dL Hematocrit 33.6 % Mean Corpuscular Volume 85.1 fL Mean Corpuscular Hemoglobin 28.9 pg Mean Corpuscular Hemoglobin Concent 33.9 g/dl Platelet Count 259 K/uL Mean Platelet Volume 9.7 fL Neutrophils (%) (Auto) 72.0 % Lymphocytes (%) (Auto) 13.6 % Monocytes (%) (Auto) 10.9 % Eosinophils (%) (Auto) 2.6 % Basophils (%) (Auto) 0.4 % Neutrophils # (Auto) 5.27 K/uL Lymphocytes # (Auto) 1.00 K/uL Monocytes # (Auto) 0.80 K/uL Eosinophils # (Auto) 0.19 K/uL Basophils # (Auto) 0.03 K/uL RDW Standard Deviation 40.3 fL RDW Coefficient of Variation 12.9 % Immature Granulocyte % (Auto) 0.5 % Immature Granulocyte # (Auto) 0.04 K/uL Sodium Level 134 mmol/L Potassium Level 4.3 mmol/L Chloride Level 101 mmol/L Carbon Dioxide Level 26 mmol/L Anion Gap 7.0 mmol/L Blood Urea Nitrogen 18 mg/dl Creatinine 1.18 mg/dl Est Creatinine Clear Calc Drug Dose 66.4 ml/min Estimated GFR () 74.6 Estimated GFR (Non- 64.4 BUN/Creatinine Ratio 15.7 Random Glucose 186 mg/dl Calcium Level 8.6 mg/dl Stool Occult Blood NEGATIVE Test 08/17/17 11:59 08/17/17 16:57 Bedside Glucose 245 mg/dl 239 mg/dl Assessment & Plan 67-year-old male with history of diabetes type 2, hypertension, dyslipidemia, WPW syndrome, Presenting with weakness. SEPSIS SECONDARY TO PYELONEPHRITIS AND POSSIBLE ACUTE BRONCHITIS Urine cultures E. coli, sensitive to ceftriaxone Blood cultures no growth to date Positive intermittent fever, hence blood and urine cultures repeated CT abdomen and pelvis: Negative for renal abscess Afebrile now Blood and urine cultures pending, follow-up Clinically improving Continue ceftriaxone day #4 Continue doxycycline ACUTE RENAL FAILURE LIKELY SECONDARY TO SEPSIS AND PRERENAL ETIOLOGY Resolved Management of sepsis as noted above Has received IV fluids RULE OUT RENAL MASS Seen on CT abdomen pelvis with no contrast We will order CT abdomen pelvis with contrast if renal function remains stable -- CT abd/pelvis today with IV contrast: Positive perinephric stranding consistent with pyelonephritis colic, advice repeat CT in 12 months hold Metformin x 2 days resume on Friday, August 18, 2017 IV NSS COUGH, POSSIBLE POSTNASAL DRIP RELATED, ACUTE BRONCHITIS -- repeat 2 view chest xray to rule out pneumonia: No pneumonia Cough improving Continue doxycycline Zyrtec started, continue PULMONARY NODULES Follow-up as an outpatient per guidelines UNCONTROLLED DIABETES hemoglobin A1c 11.8 pharmacy glycemic control Consulted critical care educator consulted Uses regular insulin at home 3 times daily with meals, will need to simplify with Lantus daily dosing on discharge Also on metformin and glipizide at home Blood sugars improving Appreciate pharmacy glycemic control service recommendations HYPERTENSION Stable IRON DEFICIENCY ANEMIA Hemoglobin stable Supplement iron Patient needs outpatient further workup DVT prophylaxis Lovenox SCDs, ambulation encouraged Disposition Lives at home PT OT ordered Anticipate discharge to home when medically stable Current Inpatient Medications: Current Inpatient Medications Medications (Trade) Dose Ordered Sig/Asif Route Start Time Stop Time Status Last Admin Dose Admin Miscellaneous Information (Consult Glycemic Management Pharmacy) 1 ea DAILY PRN N/A 08/12/17 22:51 09/11/17 22:50 Menthol (Nice Walter) 1 walter PRN PRN WALTER 08/12/17 23:00 09/11/17 22:59 08/12/17 23:50 1 WALTER Insulin Aspart (novoLOG ASPART) SLIDING SCALE ACHS SC 08/13/17 06:30 09/12/17 06:29 08/17/17 17:41 17 UNITS Glucose (Glucose 40% Gel) 15-30 GRAMS 15 GRAMS... UD PRN PO 08/12/17 23:15 09/11/17 23:14 Glucose (Glucose Chew Tab) 4-8 Tablets 4 Tabl... UD PRN PO 08/12/17 23:15 09/11/17 23:14 Dextrose (Dextrose 50% 50ML Syringe) 25-50ML OF 50% DW IV FOR... UD PRN IV 08/12/17 23:15 09/11/17 23:14 Glucagon (Glucagon Inj) 1 mg UD PRN SQ 08/12/17 23:15 09/11/17 23:14 Acetaminophen (Tylenol Tab) 650 mg Q4H PRN PO 08/12/17 23:15 09/11/17 23:14 08/15/17 14:49 650 MG Prochlorperazine Edisylate 5 mg/ Syringe 5 ml @ 5 mls/min Q6H PRN IV 08/12/17 23:15 09/11/17 23:14 08/16/17 08:41 5 MLS/MIN Tramadol HCl (Ultram Tab) not relieved by tylenol @ Q6H PRN PO 08/12/17 23:15 09/11/17 23:14 Hydromorphone HCl (Dilaudid Inj) 0.5 mg Q3H PRN IV 08/12/17 23:15 08/26/17 23:14 Doxycycline Hyclate (Vibramycin Cap) 100 mg BID PO 08/13/17 08:00 08/20/17 07:59 08/17/17 08:47 100 MG Albuterol/ Ipratropium (Duoneb) 3 ml Q2H PRN INH 08/12/17 23:15 09/11/17 23:14 Lorazepam (Ativan Inj) 0.5 mg Q4H PRN IV 08/12/17 23:15 09/11/17 23:14 Aspirin (Ecotrin Tab) 81 mg QAM PO 08/13/17 08:00 09/12/17 07:59 08/17/17 08:47 81 MG Benzonatate (Tessalon Perles Cap) 100 mg Q8H PRN PO 08/13/17 04:15 09/12/17 04:14 08/16/17 20:31 100 MG Ferrous Sulfate (Feosol Tab) 325 mg BIDM PO 08/13/17 17:00 09/12/17 16:59 08/17/17 17:37 325 MG Levalbuterol (Xopenex 0.63 Mg/ 3 Ml Neb) 0.63 mg Q4H PRN INH 08/14/17 10:00 09/12/17 09:59 Miscellaneous Information (Pharmacy Consult) 1 ea UD PRN N/A 08/14/17 08:55 09/13/17 08:54 Ceftriaxone Sodium 1000 mg/ Dextrose 60 ml @ 120 mls/hr Q24H IV 08/14/17 10:00 08/24/17 09:59 08/17/17 11:22 120 MLS/HR Magnesium Hydroxide (Milk Of Magnesia Susp) 30 ml Q6H PRN PO 08/14/17 16:30 09/13/17 16:29 08/14/17 16:55 30 ML Guaifenesin (Organidin Nr Tab) 200 mg Q4H PRN PO 08/14/17 18:30 09/13/17 18:29 08/14/17 18:48 200 MG Cetirizine HCl (zyrTEC TAB) 10 mg QAM PO 08/16/17 08:00 09/15/17 07:59 08/17/17 08:46 10 MG Enoxaparin Sodium (Lovenox Inj) 40 mg QAM SQ 08/16/17 08:00 09/15/17 07:59 08/17/17 08:49 40 MG Ioversol (Optiray 320) 125 ml UD PRN IV 08/15/17 10:00 08/19/17 09:59 Senna/Docusate Sodium (Senokot S Tab) 1 tab QAM PO 08/16/17 08:00 09/15/17 07:59 08/17/17 08:47 1 TAB Polyethylene (Miralax Powder Packet) 17 gm DAILY PRN PO 08/15/17 09:30 09/14/17 09:29 08/16/17 21:35 17 GM Insulin Glargine (Lantus Solostar Pen) 26 units QAM SC 08/17/17 08:00 09/16/17 07:59 08/17/17 09:01 26 UNITS Metformin HCl (Glucophage Tab) 1,000 mg BIDM PO 08/18/17 08:00 09/17/17 07:59 Lactulose (Chronulac Syrup) 15 gm TID PRN PO 08/17/17 15:15 09/15/17 12:44
[2017-08-17 23:56] VITALS: BP 106/66; PULSE 66; TEMP 36.5; O2SAT 97
[2017-08-18] VITALS: O2SAT 97
[2017-08-18 05:58] LABS: BASO % 0.5 %; BASO ABS # 0.03 K/uL (0-0.2); EOS % 3.6 %; EOS ABS # 0.23 K/uL (0-0.5); HEMATOCRIT 33.7 % (42-52); HEMOGLOBIN 11.4 g/dL (14.0-18.0); IG# 0.03 K/uL (0.00-0.02); LYMPH % 17.4 %; LYMPH ABS # 1.12 K/uL (1.2-3.4); MEAN CELL VOLUME 84.9 fL (80-100); MEAN CORPUSCULAR HEMOGLOBIN 28.7 pg (25-34); MEAN CORPUSCULAR HGB CONC 33.8 g/dl (32-36); MEAN PLATELET VOLUME 9.5 fL (7.4-10.4); MONO % 11.7 %; MONO ABS # 0.75 K/uL (0.11-0.59); NEUT % 66.3 %; NEUT ABS # 4.27 K/uL (1.4-6.5); PLATELET COUNT 300 K/uL (130-400); RED CELL DISTRIBUTION WIDTH CV 12.8 % (11.5-14.5); RED CELL DISTRIBUTION WIDTH SD 39.5 fL (36.4-46.3); WHITE BLOOD COUNT 6.43 K/uL (4.8-10.8)
[2017-08-18 06:35] LABS: CALCIUM 8.7 mg/dl (8.5-10.1); CREATININE 1.18 mg/dl (0.60-1.40); POTASSIUM 3.9 mmol/L (3.5-5.1)
[2017-08-18 07:09] VITALS: BP 102/69; PULSE 75; TEMP 36.7; O2SAT 97
[2017-08-18] MEDS ORDERED: METFORMIN HCL 500 MG TAB PO SCH (08:00)
[2017-08-18] MEDS: DOCUSATE SODIUM/SENNA 50/8.6MG TAB PO SCH (08:56)
[2017-08-18] MEDS: DOXYCYCLINE HYCLATE 100 MG CAP PO SCH (08:56)
[2017-08-18] MEDS: CETIRIZINE HCL 10 MG TAB PO SCH (08:56)
[2017-08-18] MEDS: FERROUS SULFATE 325 MG TAB PO SCH (08:56)
[2017-08-18] MEDS: ASPIRIN 81 MG ECTAB PO SCH (08:56)
[2017-08-18] MEDS: ENOXAPARIN 40 MG/0.4 ML SYR SQ SCH ×2 (08:57→09:02)
[2017-08-18] MEDS: INSULIN ASPART 100 UNITS/ML 3 ML PEN SC SCH ×2 (09:00→12:22)
[2017-08-18] MEDS: INSULIN GLARGINE SOLOSTAR 100 UNITS/ML 3 ML PEN SC SCH (09:01)
[2017-08-18] MEDS: CEFTRIAXONE SOD INJ 1000 MG in DEXTROSE 5% 50ML IV SCH (10:20)
--- NOTE | 2017-08-18 10:41 | Pharmacy Progress Note ---
Glycemic: Assessment & Plan Date of Service Aug 18, 2017. Assessment & Plan The patient is currently receiving ~75 units of insulin per day. BSGs ranging 83 - 245 mg/dl over the past 24hrs. * Basal insulin: Lantus 26units QAM * Correctional Insulin: Novolog Correction per scale ACHS Goal Range: Low 110 mg/dL - High 140 mg/dL Correction Factor: 20 mg/dL/unit * Prandial insulin: Per carb ratio of 1 unit per 6 grams CHO consumed BSGs continue to improve, no changes needed to inpatient regimen at this time. Pharmacy will continue to monitor patient daily and write orders per [facility] inpatient glycemic control protocol. Thanks. Discharge Recs: o A1c = 11.8 % on 08/12/17 o Pt specific goal A1c is ~ 7-7.5% based on ADA EDCS score o A1c is greater than or equal to 10% continue metformin + Lantus 25u QAM + Novolog SS w/ largest meal of the day + D/C Glipizide o B12 supplementation may be necessary with manager long term care metformin use * Please note that the plan above was derived based on current level of insulin resistance and hospital stress. These recommendations are appropriate for inpatient admission only. Plan of care upon discharge will need to be reassessed to avoid potential outpatient hypo/hyperglycemia.
[2017-08-18 14:51] VITALS: BP 117/73; PULSE 73; TEMP 36.7; O2SAT 97
[2017-08-18] MEDS: BENZONATATE 100MG CAP PO PRN (15:58)
[2017-08-18 16:03] VITALS: O2SAT 97
--- NOTE | 2017-08-18 17:16 | Progress Note ---
Medicine Progress Note Date & Time of Visit: Aug 18, 2017 at 17:04. Subjective seen resting in bedside chair comfortable ambulated in the halls, no problems states he feels much better overall no abdominal pain, flank pain, problems urinating cough is much improved, no dyspnea no other symptoms states he is ready and would like to be discharged today no other symptoms Objective Last 8 Hrs Date Time Temp Pulse Resp B/P (MAP) Pulse Ox O2 Delivery O2 Flow Rate FiO2 08/18/17 16:03 97 Room Air 08/18/17 14:51 36.7 73 20 117/73 (88) 97 Room Air 08/18/17 09:43 Room Air Physical Exam: General-oriented 3, not in distress, speaks in sentences with no effort Eyes-anicteric Neck-no JVD Lungs- clear breath sounds , no rales/wheezes BL Heart- regular rhythm; no murmur, normal rate Abdomen- normal bowel sounds, soft, nontender, nondistended No CVA tenderness, no suprapubic tenderness Extremities- no pretibial edema, no calf tenderness Neuro- alert, oriented x 3; no gross focal neurologic deficits Skin- warm & dry Laboratory Results: Last 24 Hours Test 08/17/17 20:29 08/18/17 05:26 08/18/17 07:45 08/18/17 09:17 Bedside Glucose 83 mg/dl 148 mg/dl White Blood Count 6.43 K/uL Red Blood Count 3.97 M/uL Hemoglobin 11.4 g/dL Hematocrit 33.7 % Mean Corpuscular Volume 84.9 fL Mean Corpuscular Hemoglobin 28.7 pg Mean Corpuscular Hemoglobin Concent 33.8 g/dl Platelet Count 300 K/uL Mean Platelet Volume 9.5 fL Neutrophils (%) (Auto) 66.3 % Lymphocytes (%) (Auto) 17.4 % Monocytes (%) (Auto) 11.7 % Eosinophils (%) (Auto) 3.6 % Basophils (%) (Auto) 0.5 % Neutrophils # (Auto) 4.27 K/uL Lymphocytes # (Auto) 1.12 K/uL Monocytes # (Auto) 0.75 K/uL Eosinophils # (Auto) 0.23 K/uL Basophils # (Auto) 0.03 K/uL RDW Standard Deviation 39.5 fL RDW Coefficient of Variation 12.8 % Immature Granulocyte % (Auto) 0.5 % Immature Granulocyte # (Auto) 0.03 K/uL Sodium Level 136 mmol/L Potassium Level 3.9 mmol/L Chloride Level 102 mmol/L Carbon Dioxide Level 28 mmol/L Anion Gap 6.0 mmol/L Blood Urea Nitrogen 22 mg/dl Creatinine 1.18 mg/dl Est Creatinine Clear Calc Drug Dose 66.4 ml/min Estimated GFR () 74.6 Estimated GFR (Non- 64.4 BUN/Creatinine Ratio 18.7 Random Glucose 112 mg/dl Calcium Level 8.7 mg/dl Troponin I < 0.015 ng/ml Test 08/18/17 11:36 Bedside Glucose 163 mg/dl Assessment & Plan 67-year-old male with history of diabetes type 2, hypertension, dyslipidemia, WPW syndrome, Presenting with weakness. SEPSIS SECONDARY TO PYELONEPHRITIS AND POSSIBLE ACUTE BRONCHITIS Urine cultures E. coli, sensitive to ceftriaxone Blood cultures no growth to date Positive intermittent fever, hence blood and urine cultures repeated, negative CT abdomen and pelvis: Negative for renal abscess Clinically improved overall Received 5 days of ceftriaxone 1g IV, complete 5 more days of Cipro 500mg BID Received 6 days of Doxycycline 100mg BID, complete 1 more day of Doxycycline 100mg BID ACUTE RENAL FAILURE LIKELY SECONDARY TO SEPSIS AND PRERENAL ETIOLOGY Resolved Management of sepsis as noted above Has received IV fluids RULE OUT RENAL MASS Seen on CT abdomen pelvis with no contrast -- CT abd/pelvis with IV contrast: Heterogeneous enhancement involving the upper pole of the left kidney with extensive surrounding perinephric fat stranding. This is consistent with a pyelonephritis. However, a follow-up a 1-[address] is recommended once the patient's pyelonephritis has completely resolved to ensure resolution of this abnormality. COUGH, POSSIBLE POSTNASAL DRIP, ACUTE BRONCHITIS -- repeat 2 view chest xray to rule out pneumonia: No pneumonia Cough improving Finish Doxycycline course Zyrtec started, continue PULMONARY NODULES seen on CT abdomen and pelvis: There are 2 subcentimeter pulmonary nodules within the right lung with the largest measuring 4 mm. may need a dedicated CT chest to evaluated the entire lungs Follow-up as an outpatient per guidelines (please refer to procedure section above for full details) UNCONTROLLED DIABETES hemoglobin A1c 11.8 pharmacy glycemic control Consulted primary special educator consulted Uses regular insulin at home 3 times daily with meals, will need to simplify with Lantus daily dosing on discharge Also on metformin and glipizide at home Blood sugars improving Final recommendations: Novolin 70/30 18 units BID (Lantus is expensive with patient's insurance coverage) Metformin 1000mg BID discontinue Glipizide advised to measure blood sugar readings and present to PCP on follow up HYPERTENSION Stable IRON DEFICIENCY ANEMIA Hemoglobin stable at ~11 Iron level 21 FOBT negative Supplement iron BID Patient needs outpatient further workup Disposition d/c home ff up with PCP in 3-5 days Current Inpatient Medications: Current Inpatient Medications Medications (Trade) Dose Ordered Sig/Asif Route Start Time Stop Time Status Last Admin Dose Admin Miscellaneous Information (Consult Glycemic Management Pharmacy) 1 ea DAILY PRN N/A 08/12/17 22:51 09/11/17 22:50 Menthol (Nice Walter) 1 walter PRN PRN WALTER 08/12/17 23:00 09/11/17 22:59 08/12/17 23:50 1 WALTER Insulin Aspart (novoLOG ASPART) SLIDING SCALE ACHS SC 08/13/17 06:30 09/12/17 06:29 08/18/17 12:22 11 UNITS Glucose (Glucose 40% Gel) 15-30 GRAMS 15 GRAMS... UD PRN PO 08/12/17 23:15 09/11/17 23:14 Glucose (Glucose Chew Tab) 4-8 Tablets 4 Tabl... UD PRN PO 08/12/17 23:15 09/11/17 23:14 Dextrose (Dextrose 50% 50ML Syringe) 25-50ML OF 50% DW IV FOR... UD PRN IV 08/12/17 23:15 09/11/17 23:14 Glucagon (Glucagon Inj) 1 mg UD PRN SQ 08/12/17 23:15 09/11/17 23:14 Acetaminophen (Tylenol Tab) 650 mg Q4H PRN PO 08/12/17 23:15 09/11/17 23:14 08/15/17 14:49 650 MG Prochlorperazine Edisylate 5 mg/ Syringe 5 ml @ 5 mls/min Q6H PRN IV 08/12/17 23:15 09/11/17 23:14 08/16/17 08:41 5 MLS/MIN Tramadol HCl (Ultram Tab) not relieved by tylenol @ Q6H PRN PO 08/12/17 23:15 5/3/18 23:14 Hydromorphone HCl (Dilaudid Inj) 0.5 mg Q3H PRN IV 08/12/17 23:15 08/26/17 23:14 Doxycycline Hyclate (Vibramycin Cap) 100 mg BID PO 08/13/17 08:00 08/20/17 07:59 08/18/17 08:56 100 MG Albuterol/ Ipratropium (Duoneb) 3 ml Q2H PRN INH 08/12/17 23:15 09/11/17 23:14 Lorazepam (Ativan Inj) 0.5 mg Q4H PRN IV 08/12/17 23:15 09/11/17 23:14 Aspirin (Ecotrin Tab) 81 mg QAM PO 08/13/17 08:00 09/12/17 07:59 08/18/17 08:56 81 MG Benzonatate (Tessalon Perles Cap) 100 mg Q8H PRN PO 08/13/17 04:15 09/12/17 04:14 08/18/17 15:58 100 MG Ferrous Sulfate (Feosol Tab) 325 mg BIDM PO 08/13/17 17:00 09/12/17 16:59 08/18/17 08:56 325 MG Levalbuterol (Xopenex 0.63 Mg/ 3 Ml Neb) 0.63 mg Q4H PRN INH 08/14/17 10:00 09/12/17 09:59 Miscellaneous Information (Pharmacy Consult) 1 ea UD PRN N/A 08/14/17 08:55 09/13/17 08:54 Ceftriaxone Sodium 1000 mg/ Dextrose 60 ml @ 120 mls/hr Q24H IV 08/14/17 10:00 08/24/17 09:59 08/18/17 10:20 120 MLS/HR Magnesium Hydroxide (Milk Of Magnesia Susp) 30 ml Q6H PRN PO 08/14/17 16:30 09/13/17 16:29 08/14/17 16:55 30 ML Guaifenesin (Organidin Nr Tab) 200 mg Q4H PRN PO 08/14/17 18:30 09/13/17 18:29 08/14/17 18:48 200 MG Cetirizine HCl (zyrTEC TAB) 10 mg QAM PO 08/16/17 08:00 09/15/17 07:59 08/18/17 08:56 10 MG Enoxaparin Sodium (Lovenox Inj) 40 mg QAM SQ 08/16/17 08:00 09/15/17 07:59 08/17/17 08:49 40 MG Ioversol (Optiray 320) 125 ml UD PRN IV 08/15/17 10:00 08/19/17 09:59 Senna/Docusate Sodium (Senokot S Tab) 1 tab QAM PO 08/16/17 08:00 09/15/17 07:59 08/18/17 08:56 1 TAB Polyethylene (Miralax Powder Packet) 17 gm DAILY PRN PO 08/15/17 09:30 09/14/17 09:29 08/16/17 21:35 17 GM Insulin Glargine (Lantus Solostar Pen) 26 units QAM SC 08/17/17 08:00 09/16/17 07:59 08/18/17 09:01 26 UNITS Metformin HCl (Glucophage Tab) 1,000 mg BIDM PO 08/18/17 08:00 09/17/17 07:59 08/18/17 08:56 1,000 MG Lactulose (Chronulac Syrup) 15 gm TID PRN PO 08/17/17 15:15 09/15/17 12:44
[2017-08-18 17:32] VITALS: BP 117/73; PULSE 73; TEMP 36.7; O2SAT 97
[2017-08-18] MEDS ORDERED: BENZ100C7 PO (17:47)
[2017-08-18] MEDS ORDERED: DXY100 PO (17:47)
[2017-08-18] MEDS ORDERED: INSU70IN2 SC (17:47)
[2017-08-18] MEDS ORDERED: CPR500 PO (17:47)
[2017-08-18] MEDS ORDERED: FRRS300 PO (17:47)
[2017-08-18] MEDS ORDERED: SENN8.6T7 PO (17:47)
[2017-08-18] MEDS ORDERED: ZYR10 PO (17:47)
--- NOTE | 2017-08-18 17:52 | Discharge Instructions ---
Discharge Instructions Date of Service Aug 18, 2017. Admission Reason for Admission: Sepsis Discharge Discharge Diagnosis / Problem: SEPSIS SECONDARY TO ACUTE PYELONEPHRITIS Discharge Goals Goal(s): Diagnostic testing, Therapeutic intervention Activity Recommendations Activity Limitations: as noted below (NO HEAVY EXERTION UNTIL RE-EVALUATED BY PRIMARY CARE PHYSICIAN.) Lifting Limitations: until after follow-up appointment Exercise/Sports Limitations: until after follow-up appointment Driving or Machine Use: NO DRIVING UNTIL RE-EVALUATED BY PRIMARY CARE PHYSICIAN. . Instructions / Follow-Up Instructions / Follow-Up PLEASE REVIEW YOUR NEW MEDICATION LIST AND FOLLOW INSTRUCTIONS CAREFULLY. CALL YOUR PRIMARY CARE PHYSICIAN OR RETURN TO ER IMMEDIATELY IF WITH RECURRENCE OF SYMPTOMS, FEVER/CHILLS, FLANK PAIN/BACK PAIN, PROBLEMS WITH URINATION, INCREASING COUGH, SHORTNESS OF BREATH. RECORD YOUR BLOOD SUGAR READING AT LEAST 2X A DAY WITH MEALS AND PRESENT THE READINGS TO YOUR PRIMARY CARE PHYSICIAN ON FOLLOW UP. ENSURE ADEQUATE DAILY FLUID INTAKE. TAKE YOGURT /PROBIOTIC DAILY WHILE ON ANTIBIOTICS AND AT LEAST 1 WEEK AFTER FINISHING ANTIBIOTIC COURSE. FOLLOW UP WITH DR. LYNCH (ASSOCIATE OF DR. THURSTON) ON Friday08/20/17 AT 1:00 PM. Current Hospital Diet Patient's current hospital diet: Diabetes Type 2 Diet, AHA Diet (Heart Healthy) Discharge Diet Recommended Diet: AHA Diet (Heart Healthy), Diabetes Type 2 Diet Procedures Procedures Performed: CT SCAN OF THE ABDOMEN/PELVIS Pending Studies Studies pending at discharge: no Laboratory Results Hemoglobin A1c Test 08/12/17 17:35 Range/Units Estimated Average Glucose 292 mg/dl Hemoglobin A1c 11.8 H 4.5-5.6 % Medical Emergencies . Who to Call and When: Medical Emergencies: If at any time you feel your situation is an emergency, please call 911 immediately. . Non-Emergent Contact Non-Emergency issues call your: Primary Care Provider Call Non-Emergent contact if: you have a fever, your pain is not controlled, your pain is worsening, you have any medication questions . . "Provider Documentation" section prepared by Faizan Baumann. .
--- NOTE | 2017-08-18 17:54 | History and Physical ---
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 (11) Sepsis (12) Skin problem (13) WPW syndrome Surgical Problems: (1) History of back surgery Family History Diabetes mellitus Heart disease Social History Smoking Status: Never Smoker Occupational Status: retired Allergies Coded Allergies: No Known Allergies (Unverified , 08/12/17) Home Medications Scheduled Cetirizine HCl (All Day Allergy), 10 MG PO QAM Ciprofloxacin (Ciprofloxacin HCl), 500 MG PO BID Doxycycline Hyclate (Doxycycline Hyclate), 100 MG PO BID Ferrous Sulfate (Ferrous Sulfate), 325 MG PO BIDM Insulin Isophan/Regular (Novolin 70/30), 18 UNITS SC BIDM Metformin Hcl (Glucophage), 1,000 MG PO BID Scheduled PRN Benzonatate (Benzonatate), 100 MG PO Q8H PRN for Cough Sennosides-Docusate Sodium (Senokot S), 1 TAB PO QAM PRN for Constipation Physical Exam Vital Signs Date Time Temp Pulse Resp B/P (MAP) Pulse Ox O2 Delivery O2 Flow Rate FiO2 08/18/17 17:32 36.7 73 20 97 Room Air 08/18/17 16:03 97 Room Air 08/18/17 14:51 36.7 73 20 117/73 (88) 97 Room Air 08/18/17 09:43 Room Air 08/18/17 07:09 36.7 75 18 102/69 (80) 97 Room Air 08/18/17 00:00 97 Room Air 08/17/17 23:56 36.5 66 20 106/66 (79) 97 Room Air Diagnostics Laboratory Results Results Past 24 Hours Test 08/17/17 20:29 08/18/17 05:26 08/18/17 07:45 08/18/17 09:17 Range/Units Bedside Glucose 83 148 70-99 mg/dl White Blood Count 6.43 4.8-10.8 K/uL Red Blood Count 3.97 4.7-6.1 M/uL Hemoglobin 11.4 14.0-18.0 g/dL Hematocrit 33.7 42-52 % Mean Corpuscular Volume 84.9 80-100 fL Mean Corpuscular Hemoglobin 28.7 25-34 pg Mean Corpuscular Hemoglobin Concent 33.8 32-36 g/dl Platelet Count 300 130-400 K/uL Mean Platelet Volume 9.5 7.4-10.4 fL Neutrophils (%) (Auto) 66.3 % Lymphocytes (%) (Auto) 17.4 % Monocytes (%) (Auto) 11.7 % Eosinophils (%) (Auto) 3.6 % Basophils (%) (Auto) 0.5 % Neutrophils # (Auto) 4.27 1.4-6.5 K/uL Lymphocytes # (Auto) 1.12 1.2-3.4 K/uL Monocytes # (Auto) 0.75 0.11-0.59 K/uL Eosinophils # (Auto) 0.23 0-0.5 K/uL Basophils # (Auto) 0.03 0-0.2 K/uL RDW Standard Deviation 39.5 36.4-46.3 fL RDW Coefficient of Variation 12.8 11.5-14.5 % Immature Granulocyte % (Auto) 0.5 % Immature Granulocyte # (Auto) 0.03 0.00-0.02 K/uL Sodium Level 136 136-145 mmol/L Potassium Level 3.9 3.5-5.1 mmol/L Chloride Level 102 98-107 mmol/L Carbon Dioxide Level 28 21-32 mmol/L Anion Gap 6.0 3-11 mmol/L Blood Urea Nitrogen 22 7-18 mg/dl Creatinine 1.18 0.60-1.40 mg/dl Est Creatinine Clear Calc Drug Dose 66.4 ml/min Estimated GFR () 74.6 Estimated GFR (Non- 64.4 BUN/Creatinine Ratio 18.7 10-20 Random Glucose 112 70-99 mg/dl Calcium Level 8.7 8.5-10.1 mg/dl Troponin I < 0.015 0-0.045 ng/ml Test 08/18/17 11:36 Range/Units Bedside Glucose 163 70-99 mg/dl Impression Advanced Directives Existing Living Will: No Existing Power of Market Director: No Resuscitation Status VTE Prophylaxis Will order VTE Prophylaxis: Yes
--- NOTE | 2017-08-19 14:53 | Discharge Summary ---
Discharge Summary Date of Service Aug 19, 2017. Discharge Summary Admission Date: Aug 12, 2017 at 21:39 Discharge Date: Aug 18, 2017 Discharge Disposition: Home Principal Diagnosis: SEPSIS SECONDARY TO PYELONEPHRITIS AND POSSIBLE ACUTE BRONCHITIS Secondary Diagnoses/Problems: Please refer to hospital course below. Procedures: ABDOMEN AND PELVIS CT WITHOUT CONTRAST CT DOSE: 1074.71 mGy.cm HISTORY: right flank pain TECHNIQUE: Multiaxial CT images of the abdomen and pelvis were performed without the use of intravenous and oral contrast according to the standard department stone protocol. A dose lowering technique was utilized adhering to the principles of ALARA. COMPARISON STUDY: None. FINDINGS: There is a 4 mm nodule within the right middle lobe on image 2 and a 4 mm nodule within the right lower lobe on image 8. No pneumoperitoneum. No pneumatosis. Posterior decompression at L5. No suspicious lytic or blastic osseous lesions. The unenhanced liver, spleen, adrenal glands, and pancreas are unremarkable. Punctate stone within the gallbladder. A few prominent left periaortic lymph nodes. Dominant lymph node measures 1.9 x 1.3 cm. Moderate bilateral perinephric edema/fat stranding. As is most pronounced on the left. There is abnormal fullness is a heterogeneous appearance the upper pole the left kidney. This appears a portion of the upper pole collecting system. A few small bilateral peripelvic cysts. No renal or ureteral calculi. No hydronephrosis. There is left periureteral fat stranding. There is also mild thickening of the bladder wall. Small fat-containing right inguinal hernia. Suboptimal evaluation for bowel pathology due to the lack of intravenous and oral contrast. However, there is no definite out wall thickening or obstruction. IMPRESSION: 1. No renal or ureteral stones. No hydronephrosis. 2. Bilateral perinephric fat stranding/edema most pronounced within the upper pole the left kidney. There is also abnormal soft tissue fullness in the heterogeneous appearance the upper pole the left kidney. Therefore, this could represent a bilateral pyelonephritis. However, an underlying renal mass at the left upper pole cannot be excluded on this noncontrast study. Dedicated abdominal CT with intravenous contrast is recommended for further evaluation. 3. There is also mild thickening of the bladder wall suggestive of a cystitis. Recommend correlation with urinalysis. 4. Small fat-containing right inguinal hernia. 5. No definite bowel wall thickening or obstruction. 6. There are 2 subcentimeter pulmonary nodules within the right lung with the largest measuring 4 mm. Please refer to the chart below for recommended follow-up. Please refer to below summary of Fleischner criteria recommendations for follow-up of incidental CT nodules (Clarke Briggs, Guidelines for management of small pulmonary nodules detected on CT scans: A statement from the Fleischner Society, Radiology 237: [phone].) SOLID NODULES Solitary nodule size: <6 mm * Low risk patients: no follow-up needed * high risk patients: optional CT at 12 months Solitary nodule size: 6-8 mm * Low risk patients: follow-up at 6-12 months, then consider further follow-up at 18-24 months * high risk patients: initial follow-up CT at 6-12 months and then at 18-24 months if no change Solitary nodule size: >8 mm * either low or high risk patients - consider follow-up CT at 3 months, and/or CT-PET, and/or biopsy Multiple nodules size: <6 mm * Low risk patients: no routine follow-up * high risk patients: optional CT at 12 months Multiple nodules size: 6-8 mm * Low risk patients: follow-up at 3-6 months, then consider further follow-up at 18-24 months * high risk patients: follow-up at 3-6 months, then at 18-24 months if no change Multiple nodules size: >8 mm * Low risk patients: follow-up at 3-6 months, then consider further follow-up at 18-24 months * high risk patients: follow-up at 3-6 months, then at 18-24 months if no change Note: newly detected indeterminate nodule in persons 35 years of age or older. * Low risk patients: minimal or absent history of smoking and/or other known risk factors * high risk patients: history of smoking or of other known risk factors (e.g. first degree relative with lung cancer, or exposure to asbestos, radon, uranium) * if a nodule up to 8 mm is partly solid or is ground glass further follow-up is required after 24 months to exclude possible slow growing adenocarcinoma (CAPRI) SUBSOLID NODULES Solitary pure ground-glass nodule * nodule size <6 mm - no CT follow-up required * nodule size >=6 mm - follow-up CT at 6-12 months, then every 2 years until 5 years Solitary part-solid nodule * nodule size <6 mm - no CT follow-up required * nodule size >=6 mm - follow-up CT at 3-6 months. If unchanged, and solid component remains <6 mm, then annual follow-up for 5 years Multiple subsolid nodules * nodule size <6 mm - follow-up CT at 3-6 months, consider further follow-up at 2 and 4 years if stable * nodule size >=6 mm - follow-up CT at 3-6 months, subsequent management based on the most suspicious nodule(s) Electronically signed by: Jimmy Sam M.D. 08/12/2017 7:34 PM ABDOMEN AND PELVIS CT WITH IV CONTRAST CT DOSE: 388.10 mGy.cm HISTORY: Abnormal CT. Follow-up. r/o left renal mass TECHNIQUE: Multiaxial CT images of the abdomen and pelvis were performed following the use of intravenous contrast. A dose lowering technique was utilized adhering to the principles of ALARA. COMPARISON STUDY: Abdomen and pelvis CT 08/12/2017. FINDINGS: There are few subcentimeter nodular densities at the right lung base. Dominant nodule measures 4 mm on image 21. Small focus of tree-in-bud groundglass nodules within the a.c. of the lingula. This favors mild inflammatory/infectious change. No pneumoperitoneum. No pneumatosis. No suspicious lytic or blastic osseous lesions. No hepatic or splenic masses. The adrenal glands, pancreas, and gallbladder are unremarkable. A few mildly enlarged left. Lymph nodes. Small fat-containing right inguinal hernia. Moderate stool within the colon. No bowel wall thickening or obstruction. Mild anterior bladder wall thickening. There is also urothelial thickening and periureteral fat stranding within the left ureter. Bilateral perinephric inflammatory changes again noted. This is most pronounced within the upper pole of the left kidney. There is heterogeneous enhancement within the upper pole the left kidney. This is consistent with a pyelonephritis. No hydronephrosis. No ureteral stones. There are 3 hypodense lesions within the upper pole the left kidney with the largest measuring 1.2 cm. These favor cysts rather than abscesses. Small hypodense areas within the right kidney may represent areas of scarring or could also represent pyelonephritis. No definite renal masses seen within the upper pole the left kidney. IMPRESSION: 1. Heterogeneous enhancement involving the upper pole of the left kidney with extensive surrounding perinephric fat stranding. This is consistent with a pyelonephritis. However, a follow-up a 1-[address] is recommended once the patient's pyelonephritis has completely resolved to ensure resolution of this abnormality. 2. Mild right perinephric fat stranding. There are few small subcentimeter hypodense areas within the right kidney which could be due to scarring or may also represent a pyelonephritis. 3. Left periaortic lymphadenopathy. This is likely reactive. 4. Mild bladder wall thickening suggestive of a cystitis. There is also mild urothelial thickening and periureteral fat stranding at the left ureter. 5. Additional findings as described above. Electronically signed by: Jimmy Sam M.D. 08/15/2017 12:13 PM Pending Studies/Follow-Up: Please refer to hospital course below. Medication Reconciliation New Medications: Ciprofloxacin (Ciprofloxacin HCl) 500 Mg Tab 500 MG PO BID for 5 Days, #10 TAB 0 Refills Insulin Isophan/Regular (Novolin 70/30) Susp 18 UNITS SC BIDM for 30 Days, #12 VIAL 2 Refills at AM and PM with meals Benzonatate (Benzonatate) 100 Mg Cap 100 MG PO Q8H PRN for Cough for 7 Days, #21 CAP 0 Refills Cetirizine HCl (All Day Allergy) 10 Mg Tab 10 MG PO QAM for 4 Days, #4 TAB 1 Refill Doxycycline Hyclate (Doxycycline Hyclate) 100 Mg Cap 100 MG PO BID for 1 Day, #2 CAP 0 Refills Ferrous Sulfate (Ferrous Sulfate) 325 Mg Tab 325 MG PO BIDM for 30 Days, #60 TABS 2 Refills Sennosides-Docusate Sodium (Senokot S) 1 Tab Tab 1 TAB PO QAM PRN for Constipation for 15 Days, #15 TAB 1 Refill Continued Medications: Metformin Hcl (Glucophage) 1,000 Mg Tab 1000 MG PO BID, TAB Discontinued Medications: Glipizide (Glucotrol) 10 Mg Tab 10 MG PO BID, TAB Ibuprofen (Advil) 200 Mg Tab 200 MG PO UD PRN for Pain or Fever, TAB TAKE PER PACKAGE DIRECTIONS Insulin Regular (Human) (Novolin R U-100) 100 Unit/Ml Inj 1 DOSE SC AC COVERAGE DIRECTED BY SLIDING SCALE Admission Information HPI (per Admitting provider): PATIENT'S PRIMARY CARE DOCTOR: Herberth Martinez PA-C from [facility]. CHIEF COMPLAINT: Cough, high sugars, abdominal pain. HISTORY OF PRESENT ILLNESS: History obtained from patient and records. Medical history significant for Fhyvb-Qearqguiy-Naugm/PSVT syndrome as per records, hypertension, hyperlipidemia, reflux, DM2, insulin requiring, history of Enterococcus diabetic foot infection. Last few days, the patient noted a cough, yellow sputum, started with nasal drainage, congestion. No chest pain, no shortness of breath. Unknown if he had sick contacts. Patient later on noted achy abdominal pain, may have passed a kidney stone, no blood in the urine. Foul smelling urine noted. Some nausea, no emesis Blood sugars noted to be high at home. Patient admits to erratic compliance with home diabetes regimen. Patient brought to Emergency Room, Physical Exam (per Admitting): VITAL SIGNS: Blood pressure was noted to be 132/78, pulse rate noted to be 118, later 85, RR 18, temperature 38, sats 96 on room air. GENERAL: Uncomfortable, anxious, no respiratory distress. SKIN: Pallor, warm. HEENT: Pale palpebral conjunctivae. No ptosis. Dry mucosa. NECK: supple, nontender. CHEST: No tenderness. Clear to auscultation. HEART: Regular rate and rhythm, no murmur. ABDOMEN: Some distention, Hypogastric tenderness. RECTAL: Intact sphincter, yellow stool, heme negative. EXTREMITIES: No edema, no tenderness. No gross deformity. NEUROLOGIC: Coherent. No gross focality. Hospital Course 67-year-old male with history of diabetes type 2, hypertension, dyslipidemia, WPW syndrome, Presenting with weakness. SEPSIS SECONDARY TO PYELONEPHRITIS AND POSSIBLE ACUTE BRONCHITIS Urine cultures E. coli, sensitive to ceftriaxone Blood cultures no growth to date Positive intermittent fever, hence blood and urine cultures repeated, negative CT abdomen and pelvis: Negative for renal abscess Clinically improved overall Received 5 days of ceftriaxone 1g IV, complete 5 more days of Cipro 500mg BID Received 6 days of Doxycycline 100mg BID, complete 1 more day of Doxycycline 100mg BID ACUTE RENAL FAILURE LIKELY SECONDARY TO SEPSIS AND PRERENAL ETIOLOGY Resolved Management of sepsis as noted above Has received IV fluids RULE OUT RENAL MASS Seen on CT abdomen pelvis with no contrast -- CT abd/pelvis with IV contrast: Heterogeneous enhancement involving the upper pole of the left kidney with extensive surrounding perinephric fat stranding. This is consistent with a pyelonephritis. However, a follow-up a 1-[address] is recommended once the patient's pyelonephritis has completely resolved to ensure resolution of this abnormality. COUGH, POSSIBLE POSTNASAL DRIP, ACUTE BRONCHITIS -- repeat 2 view chest xray to rule out pneumonia: No pneumonia Cough improving Finish Doxycycline course Zyrtec started, continue PULMONARY NODULES seen on CT abdomen and pelvis: There are 2 subcentimeter pulmonary nodules within the right lung with the largest measuring 4 mm. discussed with radiologist Dr. Gomez- the nodules are Solid (please refer to procedure section above for full details including recommendations for follow up per guidelines) may need a dedicated CT chest to evaluated the entire lungs Follow-up as per guidelines UNCONTROLLED DIABETES hemoglobin A1c 11.8 pharmacy glycemic control Consulted clinical unit educator consulted Uses regular insulin at home 3 times daily with meals, will need to simplify with Lantus daily dosing on discharge Also on metformin and glipizide at home Blood sugars improving Final recommendations: Novolin 70/30 18 units BID (Lantus is expensive with patient's insurance coverage) Metformin 1000mg BID discontinue Glipizide advised to measure blood sugar readings and present to PCP on follow up HYPERTENSION Stable IRON DEFICIENCY ANEMIA Hemoglobin stable at ~11 Iron level 21 FOBT negative Supplement iron BID Patient needs outpatient further workup Disposition d/c home ff up with PCP in 3-5 days Total time spent on discharge = This includes examination of the patient, discharge planning, medication reconciliation, and communication with other providers. Discharge Instructions Discharge Instructions Date of Service Aug 18, 2017. Admission Reason for Admission: Sepsis Discharge Discharge Diagnosis / Problem: SEPSIS SECONDARY TO ACUTE PYELONEPHRITIS Discharge Goals Goal(s): Diagnostic testing, Therapeutic intervention Activity Recommendations Activity Limitations: as noted below (NO HEAVY EXERTION UNTIL RE-EVALUATED BY PRIMARY CARE PHYSICIAN.) Lifting Limitations: until after follow-up appointment Exercise/Sports Limitations: until after follow-up appointment Driving or Machine Use: NO DRIVING UNTIL RE-EVALUATED BY PRIMARY CARE PHYSICIAN. . Instructions / Follow-Up Instructions / Follow-Up PLEASE REVIEW YOUR NEW MEDICATION LIST AND FOLLOW INSTRUCTIONS CAREFULLY. CALL YOUR PRIMARY CARE PHYSICIAN OR RETURN TO ER IMMEDIATELY IF WITH RECURRENCE OF SYMPTOMS, FEVER/CHILLS, FLANK PAIN/BACK PAIN, PROBLEMS WITH URINATION, INCREASING COUGH, SHORTNESS OF BREATH. RECORD YOUR BLOOD SUGAR READING AT LEAST 2X A DAY WITH MEALS AND PRESENT THE READINGS TO YOUR PRIMARY CARE PHYSICIAN ON FOLLOW UP. ENSURE ADEQUATE DAILY FLUID INTAKE. TAKE YOGURT /PROBIOTIC DAILY WHILE ON ANTIBIOTICS AND AT LEAST 1 WEEK AFTER FINISHING ANTIBIOTIC COURSE. FOLLOW UP WITH DR. LYNCH (ASSOCIATE OF DR. MARTINEZ) ON Friday08/20/17 AT 1:00 PM. Current Hospital Diet Patient's current hospital diet: Diabetes Type 2 Diet, AHA Diet (Heart Healthy) Discharge Diet Recommended Diet: AHA Diet (Heart Healthy), Diabetes Type 2 Diet Procedures Procedures Performed: CT SCAN OF THE ABDOMEN/PELVIS Pending Studies Studies pending at discharge: no Laboratory Results Hemoglobin A1c Test 08/12/17 17:35 Range/Units Estimated Average Glucose 292 mg/dl Hemoglobin A1c 11.8 H 4.5-5.6 % Medical Emergencies . Who to Call and When: Medical Emergencies: If at any time you feel your situation is an emergency, please call 911 immediately. . Non-Emergent Contact Non-Emergency issues call your: Primary Care Provider Call Non-Emergent contact if: you have a fever, your pain is not controlled, your pain is worsening, you have any medication questions . . "Provider Documentation" section prepared by Faizan Baumann. .
== END 2017-08-18 18:22 | disposition home or self-care (01) | DRG 872 ==
LOC: C.EDB 15:45 → C.4E 21:39 → ENRESERV 21:55
PROVIDERS: ADMIT Internal Medicine; ATTEND Internal Medicine
DX: A41.9 Sepsis, unspecified organism (principal); N12 Tubulo-interstitial nephritis, not specified as acute or chronic; J20.9 Acute bronchitis, unspecified; R65.20 Severe sepsis without septic shock; N17.9 Acute kidney failure, unspecified; B96.20 Unspecified Escherichia coli [E. coli] as the cause of diseases classified elsewhere; N28.89 Other specified disorders of kidney and ureter; E11.65 Type 2 diabetes mellitus with hyperglycemia; E86.0 Dehydration; D50.9 Iron deficiency anemia, unspecified; R91.8 Other nonspecific abnormal finding of lung field; J30.9 Allergic rhinitis, unspecified; I11.9 Hypertensive heart disease without heart failure; I45.6 Pre-excitation syndrome; Z51.81 Encounter for therapeutic drug level monitoring; Z79.1 Long term (current) use of non-steroidal anti-inflammatories (NSAID); Z79.82 Long term (current) use of aspirin; Z91.14 Patient's other noncompliance with medication regimen

== ENCOUNTER 2019-03-14 12:25 | Inpatient (IN) ==
[2019-03-14 13:59] LABS: Basophils # (auto) 0.02 K/uL (0-0.2); Basophils % (auto) 0.2 %; Eosinophils # (auto) 0.12 K/uL (0-0.5); Eosinophils % (auto) 1.4 %; Hematocrit (blood only) 39.4 % (42-52); Hemoglobin 13.2 g/dL (14.0-18.0); Immature Granulocytes # (auto) 0.01 K/uL (0.00-0.02); Immature Granulocytes % (auto) 0.1 %; Lymphocytes # (auto) 1.04 K/uL (1.2-3.4); Lymphocytes % (auto) 12.4 %; Mean Corpuscular Hemoglobin 28.9 pg (25-34); Mean Corpuscular Hgb Conc 33.5 g/dL (32-36); Mean Corpuscular Volume 86.4 fL (80-100); Mean Platelet Volume 10.5 fL (7.4-10.4); Monocytes # (auto) 0.56 K/uL (0.11-0.59); Monocytes % (auto) 6.7 %; Neutrophils # (auto) 6.64 K/uL (1.4-6.5); Neutrophils % (auto) 79.2 %; Platelet Count 213 K/uL (130-400); RDW Coefficient of Variation 12.9 % (11.5-14.5); Red Blood Count 4.56 M/uL (4.7-6.1); White Blood Count 8.39 K/uL (4.8-10.8)
--- NOTE | 2019-03-14 14:10 | XRay Report ---
RIGHT FOURTH AND FIFTH TOES 3 VIEWS CLINICAL HISTORY: Ulceration between the fourth and fifth toes. FINDINGS: 3 views of the right fourth and fifth toes are obtained. No prior studies are available for comparison at the time of dictation. The skeletal structures are osteopenic. No fracture is seen. [place] erosion is identified along the lateral aspects of the head of the fourth proximal phalanx and the base of the fourth middle phalanx. No additional erosions are identified. The joint spaces are maint ained. Soft tissue edema is present in the lateral forefoot. There is atherosclerotic calcification o f the regional arteries. IMPRESSION: Erosive change is suggested along the lateral aspect of the fourth proximal and middle ph alanges around the interphalangeal joint as above. Osteomyelitis is not excluded. Electronically signed by: Richardson Manrique M.D. 03/14/2019 2:09 PM
[2019-03-14 14:16] LABS: BUN Creatinine Ratio 16.8 (10-20); Calcium 9.1 mg/dl (8.5-10.1); Est GFR (African American) 73.3; Est GFR (Non-African American) 63.3
[2019-03-14 14:50] LABS: Potassium 3.9 mmol/L (3.5-5.1)
[2019-03-14 14:52] LABS: Magnesium 1.8 mg/dl (1.8-2.4)
[2019-03-14] MEDS ORDERED: VANCOMYCIN HCL 1,750 MG in SODIUM CHLORIDE 0.9% 500 ML IV ONE (15:13)
[2019-03-14] MEDS ORDERED: VANCOMYCIN CONSULT ACTIVE PRN (15:13)
[2019-03-14] MEDS ORDERED: PIPERACILLIN/TAZOBACTAM 4.5 GM/120 ML BAG IV ONE (15:26)
[2019-03-14] MEDS ORDERED: SODIUM CHLORIDE 0.9% 1000ML 1,000 ML IV ONE (15:54)
[2019-03-14] MEDS ORDERED: OXYCODONE HCL IR 5 MG TAB (IMMEDIATE RELEASE) PO PRN (15:56)
[2019-03-14] MEDS ORDERED: GLUCOSE 40% GEL 15 GM TUBE PO PRN (15:58)
[2019-03-14] MEDS ORDERED: GLUCAGON FOR INJ 1 MG VIAL SQ PRN (15:58)
[2019-03-14] MEDS ORDERED: GLUCOSE 10 TABS/TUBE PO PRN (15:58)
[2019-03-14] MEDS ORDERED: CARBOHYDRATES FOR HYPOGLYCEMIA PO PRN (15:58)
[2019-03-14] MEDS ORDERED: DEXTROSE 50% 50 ML SYRINGE IV PRN (15:58)
[2019-03-14] MEDS ORDERED: ONDANSETRON INJ 2 MG/ML 2 ML VIAL IV PRN (16:04)
--- NOTE | 2019-03-14 16:11 | History & Physical Report ---
Date of Service March 14, 2019 Assessment & Plan (1) Toe ulcer, right: Suspect Osteomyelitis -This is a 68 year old Male with history of Type II diabetes mellitus on intermediate teacher current use of insulin that is poorly controlled with peripheral vascular disease who was discharge in January 2019 from [facility] for open wound of left lower extremity that was treated with wound vac and IV antibiotics. Patient since has been following up with wound care. -However, he has developed opened ulcer of lateral side of the fourth toe that appears to be exposed to the bone. Patient has been recently on oral antibiotics for 3 weeks. He presents to the emergency room on 03/14/19 and on X ray imaging impression "Erosive change is suggested along the lateral aspect of the fourth proximal and middle phalanges around the interphalangeal joint as above. Osteomyelitis is not excluded." As per patient and his monika Gallardoa [phone] at the bedside, there has been drainage from the ulcer. -empirically started on Vancomycin and Zosyn -MRI of the right foot -give pre and post imaging IV hydration -wound care as per nursing, wound care nurse and wound care physician consult (2) Chronic kidney disease: -patient's creatinine levels appear to be chronically above 1 -monitor renal function after right foot MRI with contrast -give pre and post imaging IV hydration -patient does not appear to be taking any LEVI inhibitor despite lisinopril being mentioned to be started on 01/2019 discharge summary -would not start LEVI inhibitor until following renal function after right foot MRI (3) Peripheral vascular disease: -patient has not been taking aspirin at home -hold aspirin for now until deciding whether toe ulcer debridement needed (4) Uncontrolled diabetes mellitus: Type 2 diabetes mellitus with intermediate teacher current use of insulin with hyperglycemia -Patient also reports at home his Hemoglobin A1c has been above 10 in the past and that even with his Novolin 70/30 that he takes 26 units BID, his sugars can be in the 200s to 250s. He reports that he had better glucose control when he in the hospital and previous physical rehabilitation stay when he was on an alternative insulin but his insurance covers the less effective one which he has been taking. Patient denies taking aspirin currently. He has some pain of the affect toe with ulcer. -check current HbA1c -hold off home dose Novolin -place on Lantus 15 units BID with sliding scale insulin for now -Case manger consult to be placed in regards to any financial assistance to alternative diabetes medications -Diabetic education (5) WPW syndrome: -Patient's monika also reports that patient has history of Mahan-Parkinson White Syndrome. -serum magnesium is 1.8 on admission: give IV magnesium -telemetry monitoring -EKG to be obtained as a preop EKG if any need for toe debridement DVT prophylaxis: heparin 500 units subcut q12 hours Full Code monika Bynum [phone] Durbin will be the hospitalist following the patient starting on 03/14/19 History of Present Illness This is a 68 year old Male with history of Type II diabetes mellitus on intermediate teacher current use of insulin that is poorly controlled with peripheral vascular disease who was discharge in January 2019 from [facility] for open wound of left lower extremity that was treated with wound vac and IV antibiotics. Patient since has been following up with wound care. However, he has developed opened ulcer of lateral side of the fourth toe that appears to be exposed to the bone. Patient has been recently on oral antibiotics for 3 weeks. He presents to the emergency room on 03/14/19 and on X ray imaging impression "Erosive change is suggested along the lateral aspect of the fourth proximal and middle phalanges around the interphalangeal joint as above. Osteomyelitis is not excluded." As per patient and his monika Bynum [phone] at the bedside, there has been drainage from the ulcer. Patient also reports his Hemoglobin A1c has been above 10 in the past and that even with his Novolin 70/30 that he takes 26 units BID, his sugars can be in the 200s to 250s. He reports that he had better glucose control when he in the hospital and previous physical rehabilitation stay when he was on an alternative insulin but his insurance covers the less effective one which he has been taking. Patient denies taking aspirin currently. He has some pain of the affect toe with ulcer. Patient's monika also reports that patient has history of Mahan-Parkinson White Syndrome. Patient denies fevers at home. denies shortness of breath. denies palpitations. denies headache or dizziness. denies abdominal pain. denies vomiting. denies history of gastric reflux Family history: patient denies known family history because he is adopted Allergies: patient recalls some allergy 20 years ago to a cardiac medication but cannot recall the side effects or name of the medication Primary Care Provider: Jonas King MD Allergies Allergy/AdvReac Type Severity Reaction Status Date / Time sympathomimetics AdvReac Severe Chest Pain Uncoded 03/14/19 13:34 Home Medications Home Medications Medication Instructions Recorded Confirmed Type ondansetron 4 mg PO Q6H PRN #10 tab 08/20/18 03/14/19 Rx aspirin [Aspir-81] 81 mg PO DAILY 01/05/19 03/14/19 History ibuprofen 600 mg PO TID PRN 01/05/19 03/14/19 History cephalexin 500 mg capsule 500 mg PO BID #60 cap 01/21/19 03/14/19 Rx insulin NPH and regular human 26 unit SUBCUT AMPM 03/14/19 03/14/19 History [Novolin 70/30 U-100 Insulin] Past Med/Surg History Social History Preferred Language: Japanese Communication Ability: Effective Fiberglass Roller Required: No Beliefs That Will Affect Care: None Current Living Situation: Spouse Other Information That Helps Us Care for You: No Feels Safe at Home: Yes Safety Concerns: Feels Safe At This Time Smoking Status: Never smoker Hx Alcohol Use: No Hx Substance Use: No Review of Systems Review of Systems: All systems reviewed & are unremarkable except as noted in HPI & below Physical Exam Constitutional: WD/WN, vitals as above Eyes: PERRL, conjunctivae normal, anicteric sclerae EOM intact bilaterally ENMT: external ear and nose normal, oropharynx normal Neck: normal visual inspection Respiratory: normal respiratory effort, lungs clear to auscultation Cardiovascular: Rate/Rhythm: regular rate and regular rhythm Gastrointestinal (Abdomen): normal bowel sounds, soft, nontender, no hepatosplenomegaly Musculoskeletal: lateral to fourth toe is ulcer that appears to go to the bone Neurologic: PERRL, EOMI, accommodation nl, no face palsy, no dysarthria CN's II-XI intact bilaterally Psychiatric: A+Ox3, euthymic affect Results & Data Vital Signs (Past 12 Hours) Vital Signs Temp Pulse Pulse Resp BP BP Pulse Ox 03/14/19 14:46 88 18 126/75 98 03/14/19 12:37 36.6 C 92 H 20 116/72 98 Code Status & VTE Plan VTE Prophylaxis Plan VTE Prophylaxis will be ordered: Yes
[2019-03-14] MEDS ORDERED: PIPERACILL/TAZOBAC CONSULT ACTIVE PRN (16:29)
[2019-03-14] MEDS ORDERED: ASPIRIN 81 MG ECTAB PO SCH (16:30)
[2019-03-14] MEDS ORDERED: GADOBUTROL 7.5ML VIAL IV PRN (16:49)
--- NOTE | 2019-03-14 18:48 | Magnetic Resonance Report ---
MRI OF THE RIGHT FOREFOOT COMBO CLINICAL HISTORY: Fourth toe infection. COMPARISON STUDY: Radiographs of the right toes dated 03/14/2019. TECHNIQUE: MRI of the right forefoot is performed utilizing various T1 and T2 weighted sequences in t he axial, sagittal, and coronal planes. Contrast-enhanced sequences are acquired following the IV adm inistration of 8.8 mL of Gadavist. The examination is degraded by motion artifact. FINDINGS: There is significant marrow edema with drop in T1 signal and increased T2 signal involving the fourth proximal and middle phalanges centered around the proximal interphalangeal joint. This cor responds to the abnormality seen on today's radiographs. There is associated cortical disruption and nonspecific postcontrast enhancement, and the appearance is highly concerning for osteomyelitis. No a dditional similar-appearing marrow changes are seen throughout the remainder of the forefoot. Degener ative change is noted at the first metatarsophalangeal joint. Mild soft tissue edema is noted in the fourth toe. There is nonspecific abnormal enhancement likely representing cellulitis. No organized fl uid collection is seen to suggest abscess. A cutaneous ulceration is suggested along the lateral aspe ct of the toe at the level of the proximal interphalangeal joint. The partially visualized flexor and extensor tendons appear intact. IMPRESSION: 1. Findings are highly concerning for osteomyelitis in the fourth toe involving the proximal and midd le phalanges, as detailed above, centered around the proximal interphalangeal joint. Clinical correla tion will be required. 2. Suspect overlying ulceration and cellulitis. 3. No organized fluid collection is seen to suggest abscess. Dictated: 03/14/2019 6:06 PM Transcribed: 03/14/2019 6:27 PM Halina [id number] Electronically signed by: Richardson Manrique M.D. 03/14/2019 6:47 PM
[2019-03-14] MEDS ORDERED: MAGNESIUM SULFATE / D5W 1 GM/100 ML BAG IV ONE (19:00)
--- NOTE | 2019-03-14 19:26 | Pharmacy Report ---
Pharmacy Abx Initial Consult - Date of Service March 14, 2019 - Pharmacy Dosing Scope Date of Consult: 03/14/19 Consultation requested by: Dr. Herminio Jennings MD Pharmacy is consulted to initiate Vancomycin and Zosyn IV dosing therapy, order appropriate labs and adjust drug dose/frequency. - Subjective The patient is a 68 year old M admitted on 03/14/19 16:09 with foot infection with possible osteomyelitis. - Objective Height: 5 ft 11 in Weight: 88.2 kg Vital Signs (Past 12hrs): Vital Signs Temp Pulse Pulse Resp BP BP Pulse Ox 03/14/19 18:36 37.1 C 85 18 157/78 H 03/14/19 18:26 75 03/14/19 18:00 99 03/14/19 17:41 99 03/14/19 17:40 67 18 122/65 122/65 99 03/14/19 16:01 68 23 03/14/19 16:00 67 20 115/74 97 03/14/19 15:49 69 16 99 03/14/19 15:30 71 19 105/62 99 03/14/19 14:46 88 18 126/75 98 03/14/19 12:37 36.6 C 92 H 20 116/72 98 Lab Results (24hrs): Laboratory Tests (24 Hours) 03/14/19 03/14/19 03/14/19 14:31 13:37 13:37 WBC Neut # (Auto) ESR 56 H Creatinine 1.19 Est Cr Clr Drug Dosing 65.0 C-Reactive Protein 0.74 H 03/14/19 13:37 WBC 8.39 Neut # (Auto) 6.64 H ESR Creatinine Est Cr Clr Drug Dosing C-Reactive Protein - Risk Factors for Resistance * Hospitalization for 48 hours or more within the past 90 days - Assessment & Plan Assessment 68 year old M with h/o IDDM, CKD, PVD with history of foot/leg infections now presents with foot infection and possible osteomyelitis. SCr 1.19 mg/dL appears to be near baseline. Plan Vancomycin and Zosyn IV for treatment of foot infection and possible osteomyelitis Vancomycin IV * Estimated PK Parameters: Vd 0.7 L/kg, Zeus 0.059 hr-1, t1/2 11.75 hr * Loading dose: 1750 mg (20 mg/kg) * Maintenance dose: 1500 mg IV (17 mg/kg) every 16 hours * Goal trough level for cellulitis/osteomyelitis: 15 to 20 mcg/mL * Trough level ordered for Friday03/16/19 before the 1400 hours dose Piperacillin/tazobactam * 4.5 g bolus administered over 30 minutes, then 3.375 g IV extended infusion every 8 hours for CrCl greater than 20 mL/min Pharmacy will continue to follow and will adjust dose/frequency as necessary. Thank you.
--- NOTE | 2019-03-14 20:17 | Emergency Department Note ---
Entered by Moose Lieberman acting as a scribe for Jase Rodríguez History of Present Illness General Chief complaint: Wound Stated complaint: R FOOT WOUND Time Seen by Provider: 03/14/19 12:57 Source: patient History of Present Illness Onset (ago): day(s) 2 Location: lower extremity (right foot wound) Severity: similar to prior episodes Pain Consistency: + other (worsening) Maximum Pain Intensity: 5 Exacerbated By: + other (wound packing) Associated symptoms: + other (wound pain and wound discharge) The patient is a 68 year old M who presents to the Emergency Room with complaints of worsening right foot wound that occurred 2 days ago. The patient states that his wound is painful and has discharge. The patients states that she had medication from the patients previous wound that she used to pack the patients current wound. She notes that the patients previous wound occurred a year and a half ago and was located the patients left foot. The patient notes that his previous wound was treated in an oxygen chamber. The patients adds that she did not pack the patients wound any further because she thought that it was making it worse due to it discharging more pus. Home Medications Home Medications Medication Instructions Recorded Confirmed Type ondansetron 4 mg PO Q6H PRN #10 tab 08/20/18 03/14/19 Rx aspirin [Aspir-81] 81 mg PO DAILY 01/05/19 03/14/19 History ibuprofen 600 mg PO TID PRN 01/05/19 03/14/19 History cephalexin 500 mg capsule 500 mg PO BID #60 cap 01/21/19 03/14/19 Rx insulin NPH and regular human 26 unit SUBCUT AMPM 03/14/19 03/14/19 History [Novolin 70/30 U-100 Insulin] Allergies Allergy/AdvReac Type Severity Reaction Status Date / Time sympathomimetics AdvReac Severe Chest Pain Uncoded 03/14/19 13:34 Past Med/Surg History Social History Preferred Language: Swedish Communication Ability: Effective 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 and A total of 10 systems reviewed and were otherwise negative Physical Exam Vital Signs Vital Signs - 24 hr 03/14/19 12:37 03/14/19 13:25 03/14/19 14:46 Temperature 36.6 C Temperature Source Oral Oral Sepsis Recent Fever Within 48 Hours No Sepsis New/Unexplained Change in Mental Status No Sepsis Action Taken by Nursing No Action Required Pulse Rate 92 H Pulse Rate [Right Finger] 88 Pulse Rate from SpO2 Sensor Pulse Strength Normal Respiratory Rate 20 18 Respiratory Effort / Characteristics Non-Labored Spontaneous Respiratory Depth Normal Respiratory Pattern Regular Blood Pressure 116/72 Blood Pressure [Right Arm] 126/75 Blood Pressure Mean 86 Blood Pressure Mean [Right Arm] 92 Pulse Oximetry 98 98 Oxygen Delivery Method Room Air 03/14/19 15:30 03/14/19 15:49 03/14/19 16:00 Temperature Temperature Source Sepsis Recent Fever Within 48 Hours Sepsis New/Unexplained Change in Mental Status Sepsis Action Taken by Nursing Pulse Rate 71 69 67 Pulse Rate [Right Finger] Pulse Rate from SpO2 Sensor 72 67 68 Pulse Strength Respiratory Rate 19 16 20 Respiratory Effort / Characteristics Respiratory Depth Respiratory Pattern Blood Pressure 105/62 115/74 Blood Pressure [Right Arm] Blood Pressure Mean 76 87 Blood Pressure Mean [Right Arm] Pulse Oximetry 99 99 97 Oxygen Delivery Method 03/14/19 16:01 Temperature Temperature Source Sepsis Recent Fever Within 48 Hours Sepsis New/Unexplained Change in Mental Status Sepsis Action Taken by Nursing Pulse Rate 68 Pulse Rate [Right Finger] Pulse Rate from SpO2 Sensor Pulse Strength Respiratory Rate 23 Respiratory Effort / Characteristics Respiratory Depth Respiratory Pattern Blood Pressure Blood Pressure [Right Arm] Blood Pressure Mean Blood Pressure Mean [Right Arm] Pulse Oximetry Oxygen Delivery Method GENERAL: He is oriented to person, place, and time. He appears well-developed and well-nourished. He does not appear distressed. HENT: Exam performed. - Head: Normocephalic and atraumatic. - Right Ear: External ear normal. No mastoid tenderness. - Left Ear: External ear normal. No mastoid tenderness. - Mouth/Throat: The oropharynx is clear and moist. No trismus in the jaw. No dental abscesses or uvula swelling. No oropharyngeal exudate or tonsillar abscesses. EYES: Conjunctivae and EOM are normal. Pupils are equal, round, and reactive to light. Right eye exhibits no discharge. Left eye exhibits no discharge. No scleral icterus. NECK: Normal range of motion. Neck supple. No JVD present. No spinous process tenderness present. No carotid bruit present. No rigidity. No tracheal deviation and normal range of motion present. No Brudzinski's sign and no Kernig's sign noted. CV: Normal rate, regular rhythm, normal heart sounds and intact distal pulses. There is no peripheral edema. Palpable radial pulses bue. PULM/CHEST: Effort normal and breath sounds normal. No respiratory distress. No stridor. He has no wheezes. He has no rales. - Chest Wall: He exhibits no tenderness. ABD: The abdomen is soft. Bowel sounds are normal. He has no distension. No mass is present. There is no tenderness. There is no rebound, no guarding, no Martinez's sign and no tenderness at McBurney's point. Rovsig negative. MUSC/SKEL: Normal range of motion. There is no peripheral edema, tenderness or deformity. LYMPH: No cervical adenopathy. NEURO: He is alert and oriented to person, place, and time. He has normal strength. No cranial nerve deficit or sensory deficit. Coordination and gait normal. GCS eye subscore is 4. GCS verbal subscore is 5. GCS motor subscore is 6. Cerebellar tests wnl. SKIN: Skin is warm and dry. He is not diaphoretic. Ulcerating wound in right lower extremity, between 4th and 5th digit, ulcerating down to tendon. PSYCH: He has a normal mood and affect. Behavior is normal. Judgment and thought content normal. Course 1320: The patient was evaluated in room C4. A complete history and physical exam was performed. 1513: The patient's vital signs are stable. The labs show no leukocytosis. The CRP and ESR levels are pending. The X-ray shows erosive changes along the lateral aspect of the 4th proximal phalanges consistent with osteomyelitis. The patient will be treated with vancomycin and admitted to the [facility] team. 1525: I reviewed the patient's case with Dr. Jennings, [facility] Hospitalist. He will evaluate the patient for further management. He states that he wants Zosyn to be given to the patient. Administered Medications Gadobutrol (Gadavist 7.5ml) 8.8 ml IV ONCE PRN PRN Reason: Interaction Checking Stop: 03/18/19 16:48 Last Admin: 03/14/19 16:49 Dose: 8.8 ml Documented by: [id number] Discontinued Medications Vancomycin HCl 1,750 mg/ (Sodium Chloride) 535 mls @ 200 mls/hr IV NOW ONE Stop: 03/14/19 17:53 Last Admin: 03/14/19 17:40 Dose: 200 mls/hr Documented by: [id number] Piperacillin Sod/Tazobactam Sod (Zosyn) 4.5 gm in 120 mls @ 30 mls/hr IV NOW ONE Stop: 03/14/19 19:25 Last Infusion: 03/14/19 19:03 Dose: 0 mls/hr Documented by: [id number] Admin: 03/14/19 15:42 Dose: 30 mls/hr Documented by: [id number] Sodium Chloride (Nss 1000ml) 1,000 mls @ 999 mls/hr IV .Q1H1M ONE Stop: 03/14/19 16:54 Last Admin: 03/14/19 19:03 Dose: 999 mls/hr Documented by: [id number] Magnesium Sulfate/Dextrose (Magnesium Sulfate / D5w) 1 gm in 100 mls @ 100 mls/hr IV 1900 ONE Stop: 03/14/19 19:59 Last Admin: 03/14/19 19:13 Dose: 100 mls/hr Documented by: [id number] Medical Decision Making Medical Records Attestation: I reviewed the patient's medical records. Home Medications Current Medication List: was personally reviewed by me Laboratory Data Attestation: I reviewed the patient's lab results. Result diagrams: 03/14/19 13:37 03/14/19 14:31 Lab Results 03/14/19 03/14/19 03/14/19 Range/Units 13:37 13:37 13:37 WBC 8.39 (4.8-10.8) K/uL RBC 4.56 L (4.7-6.1) M/uL Hgb 13.2 L (14.0-18.0) g/dL Hct 39.4 L (42-52) % MCV 86.4 (80-100) fL MCH 28.9 (25-34) pg MCHC 33.5 (32-36) g/dL RDW Std Deviation 41.0 (36.4-46.3) fL RDW Coeff of Nirmala 12.9 (11.5-14.5) % Plt Count 213 (130-400) K/uL MPV 10.5 H (7.4-10.4) fL Immature Gran % (Auto) 0.1 % Neut % (Auto) 79.2 % Lymph % (Auto) 12.4 % Grainger % (Auto) 6.7 % Eos % (Auto) 1.4 % Baso % (Auto) 0.2 % Immature Gran # (Auto) 0.01 (0.00-0.02) K/uL Neut # (Auto) 6.64 H (1.4-6.5) K/uL Lymph # (Auto) 1.04 L (1.2-3.4) K/uL Grainger # (Auto) 0.56 (0.11-0.59) K/uL Eos # (Auto) 0.12 (0-0.5) K/uL Baso # (Auto) 0.02 (0-0.2) K/uL ESR (0-14) mm/hr Sodium 139 (136-145) mmol/L Potassium (3.5-5.1) mmol/L Chloride 106 (98-107) mmol/L Carbon Dioxide 27 (21-32) mmol/L Anion Gap 6.0 (3-11) BUN 20 H (7-18) mg/dl Creatinine 1.19 (0.6-1.4) mg/dl Est Cr Clr Drug Dosing 65.0 ml/min Est GFR ( Amer) 73.3 Est GFR (Non-Af Amer) 63.3 BUN/Creatinine Ratio 16.8 (10-20) Glucose 115 H (70-99) mg/dl Lactate 1.1 (0.4-2.0) mmol/L Calcium 9.1 (8.5-10.1) mg/dl Magnesium (1.8-2.4) mg/dl C-Reactive Protein (0-0.29) mg/dl 03/14/19 03/14/19 03/14/19 Range/Units 13:37 14:31 14:31 WBC (4.8-10.8) K/uL RBC (4.7-6.1) M/uL Hgb (14.0-18.0) g/dL Hct (42-52) % MCV (80-100) fL MCH (25-34) pg MCHC (32-36) g/dL RDW Std Deviation (36.4-46.3) fL RDW Coeff of Nirmala (11.5-14.5) % Plt Count (130-400) K/uL MPV (7.4-10.4) fL Immature Gran % (Auto) % Neut % (Auto) % Lymph % (Auto) % Grainger % (Auto) % Eos % (Auto) % Baso % (Auto) % Immature Gran # (Auto) (0.00-0.02) K/uL Neut # (Auto) (1.4-6.5) K/uL Lymph # (Auto) (1.2-3.4) K/uL Grainger # (Auto) (0.11-0.59) K/uL Eos # (Auto) (0-0.5) K/uL Baso # (Auto) (0-0.2) K/uL ESR 56 H (0-14) mm/hr Sodium (136-145) mmol/L Potassium 3.9 (3.5-5.1) mmol/L Chloride (98-107) mmol/L Carbon Dioxide (21-32) mmol/L Anion Gap (3-11) BUN (7-18) mg/dl Creatinine (0.6-1.4) mg/dl Est Cr Clr Drug Dosing ml/min Est GFR ( Amer) Est GFR (Non-Af Amer) BUN/Creatinine Ratio (10-20) Glucose (70-99) mg/dl Lactate (0.4-2.0) mmol/L Calcium (8.5-10.1) mg/dl Magnesium 1.8 (1.8-2.4) mg/dl C-Reactive Protein 0.74 H (0-0.29) mg/dl Imaging Data Radiologist's Impression: Radiology results as stated below per my review and the radiologist's interpretation: RIGHT FOURTH AND FIFTH TOES 3 VIEWS CLINICAL HISTORY: Ulceration between the fourth and fifth toes. FINDINGS: 3 views of the right fourth and fifth toes are obtained. No prior studies are available for comparison at the time of dictation. The skeletal structures are osteopenic. No fracture is seen. Bony erosion is identified along the lateral aspects of the head of the fourth proximal phalanx and the base of the fourth middle phalanx. No additional erosions are identified. The joint spaces are maintained. Soft tissue edema is present in the lateral forefoot. There is atherosclerotic calcification of the regional arteries. IMPRESSION: Erosive change is suggested along the lateral aspect of the fourth proximal and middle phalanges around the interphalangeal joint as above. Osteomyelitis is not excluded. Electronically signed by: Richardson Manrique M.D. 03/14/2019 2:09 PM Blood Pressure Blood Pressure Findings: Elevated blood pressure Blood Pressure Disposition: further management by hospitalist [facility] Narrative 1320: The patient was evaluated in room C4. A complete history and physical exam was performed. 1513: The patient's vital signs are stable. The labs show no leukocytosis. The CRP and ESR levels are pending. The X-ray shows erosive changes along the lateral aspect of the 4th proximal phalanges consistent with osteomyelitis. The patient will be treated with vancomycin and admitted to the [facility] team. 1525: I reviewed the patient's case with Dr. Jennings, [facility] Hospitalist. He will evaluate the patient for further management. He states that he wants Zosyn to be given to the patient. Impression & Plan Osteomyelitis of left foot Discharge Plan Visit Data *Final* Discharge Date/Time: 03/14/19 18:16 Chief Complaint: Wound Stated Complaint: R FOOT WOUND ED Provider: Jase Rodríguez Discharge Problem: Osteomyelitis of left foot Patient Disposition: Admitted As Inpatient Discharge Instructions Interventions: ED Discharge Assessment Last Done: 03/14/19 18:16 Discharge Problem: Osteomyelitis of left foot Qualifiers: Osteomyelitis type: unspecified type Qualified Code(s): M86.9 - Osteomyelitis, unspecified The scribe's documentation has been prepared under my direction and personally reviewed by me in its entirety. I confirm that the note above accurately reflects all work, treatment, procedures, and medical decision making performed by me.
[2019-03-14] MEDS: SODIUM CHLORIDE 0.9% 1000ML 1,000 ML IV SCH (20:18)
[2019-03-14] MEDS ORDERED: HEPARIN SOD 5,000 UNIT/0.5 ML VIAL SQ SCH (21:00)
[2019-03-14] MEDS: HYDROmorphone INJ 0.5 MG/0.5 ML SYR IV PRN (21:10)
[2019-03-14] MEDS: INSULIN ASPART 100 UNITS/ML 3 ML PEN SC SCH (21:17)
[2019-03-14] MEDS: INSULIN GLARGINE SOLOSTAR 100 UNITS/ML 3 ML PEN SC SCH (21:18)
[2019-03-14] MEDS: PIPERACILLIN/TAZOBACTAM 3.375 GM in DEXTROSE 5% 100 ML IV SCH (22:06)
[2019-03-15] MEDS: PIPERACILLIN/TAZOBACTAM 3.375 GM in DEXTROSE 5% 100 ML IV SCH ×3 (05:47→22:21)
[2019-03-15] MEDS: VANCOMYCIN HCL 1,500 MG in SODIUM CHLORIDE 0.9% 500 ML IV SCH ×2 (05:49→22:21)
[2019-03-15 06:21] LABS: Basophils # (auto) 0.02 K/uL (0-0.2); Basophils % (auto) 0.3 %; Eosinophils # (auto) 0.09 K/uL (0-0.5); Eosinophils % (auto) 1.2 %; Hematocrit (blood only) 35.8 % (42-52); Hemoglobin 11.9 g/dL (14.0-18.0); Immature Granulocytes # (auto) 0.01 K/uL (0.00-0.02); Immature Granulocytes % (auto) 0.1 %; Lymphocytes # (auto) 1.15 K/uL (1.2-3.4); Mean Corpuscular Hgb Conc 33.2 g/dL (32-36); Mean Corpuscular Volume 87.3 fL (80-100); Mean Platelet Volume 10.1 fL (7.4-10.4); Monocytes # (auto) 0.53 K/uL (0.11-0.59); Monocytes % (auto) 6.9 %; Neutrophils # (auto) 5.85 K/uL (1.4-6.5); Neutrophils % (auto) 76.5 %; Platelet Count 182 K/uL (130-400); RDW Coefficient of Variation 12.9 % (11.5-14.5); RDW Standard Deviation 41.7 fL (36.4-46.3); White Blood Count 7.65 K/uL (4.8-10.8)
[2019-03-15] MEDS: SODIUM CHLORIDE 0.9% 1000ML 1,000 ML IV SCH (06:26)
[2019-03-15 06:59] LABS: Albumin Level 2.8 gm/dl (3.4-5.0); BUN Creatinine Ratio 14.4 (10-20); Calcium 8.3 mg/dl (8.5-10.1); Creatinine Clr Calc Pharmacy 64.5 ml/min; Est GFR (African American) 72.6; Est GFR (Non-African American) 62.6; Potassium 3.9 mmol/L (3.5-5.1)
[2019-03-15 07:01] LABS: Albumin Globulin Ratio 0.7 (0.9-2); Bilirubin,Total 1.2 mg/dl (0.2-1); Globulin 3.9 gm/dl (2.5-4.0); Total Protein 6.7 gm/dl (6.4-8.2)
[2019-03-15] MEDS: INSULIN GLARGINE SOLOSTAR 100 UNITS/ML 3 ML PEN SC SCH ×2 (08:22→20:46)
[2019-03-15] MEDS: INSULIN ASPART 100 UNITS/ML 3 ML PEN SC SCH ×4 (08:24→20:45)
[2019-03-15 08:26] LABS: Estimated Average Glucose 229 mg/dl; Hemoglobin A1C 9.6 % (4.5-5.6)
[2019-03-15] MEDS: ENOXAPARIN INJ 40 MG/0.4 ML SYR SQ SCH (09:09)
--- NOTE | 2019-03-15 11:04 | Infectious Disease Consult ---
Date of Consultation March 15, 2019 Assessment & Plan (1) Osteomyelitis of right foot: continue abx, check wound culture. will follow. History of Present Illness Attending Physician: Barbara Durbin DO pt admitted with right 4th toe wound, states spontaneous, denies trauma having pain. MRI done showing osteo. was previously treated for left cote wound, cultures then grew GFS and MSSA, he was treated with CTX and then transitioned to po kelfex in late January as he was leaving the area for vacation and wound improved, vac was removed. He remained on keflex leading to admission. no cultures done of right foot wound, placed on vanco and zoysn. tolerating well. denies f/c. ESR 56. wbc 7.6. creat 1.2. Denies f/c. no cp, sob, cough, no abd pain, no n/v/d. no edema. Allergies Allergy/AdvReac Type Severity Reaction Status Date / Time sympathomimetics AdvReac Severe Chest Pain Uncoded 03/14/19 13:34 Home Medications Home Medications Medication Instructions Recorded Confirmed Type ondansetron 4 mg PO Q6H PRN #10 tab 08/20/18 03/14/19 Rx aspirin [Aspir-81] 81 mg PO DAILY 01/05/19 03/14/19 History ibuprofen 600 mg PO TID PRN 01/05/19 03/14/19 History cephalexin 500 mg capsule 500 mg PO BID #60 cap 01/21/19 03/14/19 Rx insulin NPH and regular human 26 unit SUBCUT AMPM 03/14/19 03/14/19 History [Novolin 70/30 U-100 Insulin] Patient History Medical History HE (acute kidney injury) Peripheral vascular disease Uncontrolled diabetes mellitus Cellulitis of left lower extremity without foot Diabetes (Chronic) Hypertension (Chronic) 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) Diabetic peripheral neuropathy (Chronic) Hallux abducto valgus, bilateral (Chronic) Surgical History History of back surgery (Resolved) Social History Preferred Language: Divehi Communication Ability: Effective Center Mgr Required: No Beliefs That Will Affect Care: None Current Living Situation: Spouse Other Information That Helps Us Care for You: No Feels Safe at Home: Yes Safety Concerns: Feels Safe At This Time Smoking Status: Never smoker Hx Alcohol Use: No Hx Substance Use: No Review of Systems Review of Systems: All systems reviewed & are unremarkable except as noted in HPI & below Physical Exam Constitutional: WD/WN, vitals as above Eyes: PERRL, conjunctivae normal, anicteric sclerae ENMT: external ear and nose normal, oropharynx normal Neck: normal visual inspection Respiratory: normal respiratory effort, lungs clear to auscultation Cardiovascular: RRR, no murmur, no edema Gastrointestinal (Abdomen): normal bowel sounds, soft, nontender, no hepatosplenomegaly Musculoskeletal: no cyanosis or clubbing, extremities motor strength 5/5 Skin: no rashes, warm and dry + wound (open lateral 4th toe, warmth, erythema, no purulence) Psychiatric: A+Ox3, euthymic affect Results & Data Vital Signs (Past 12 Hours) Vital Signs Temp Pulse Pulse Resp BP Pulse Ox 03/15/19 07:24 37.3 C 77 18 136/74 95 03/15/19 07:08 66 03/15/19 04:00 37.3 C 72 18 123/67 95 03/15/19 01:02 67 PG Care Time/CCT Total # of Minutes Spent Total Time Spent with Patient: Total time spent is greater than 50% in coordination of care (as documented) at patient's floor/unit and/or counseling patient:
--- NOTE | 2019-03-15 12:56 | Consultation Report ---
DATE OF CONSULTATION: 03/15/2019 CHIEF COMPLAINT: Right fourth toe wound. SUBJECTIVE: The patient is a 68-year-old male, uncontrolled diabetic, who noticed a wound on the lateral border of his right fourth toe on 03/12/2019. Back in the end of December or early January, he had been treated for a wound on his left cote by Dr. Montesinos. This is healed rather nicely and he has been on p.o. antibiotics since that time. He was admitted to the hospital for further definitive care of his fourth toe. PAST MEDICAL HISTORY: Significant for uncontrolled diabetes, peripheral vascular disease, chronic kidney disease, and Hhvun-[id number]-[id number] syndrome. PHYSICAL EXAMINATION: Currently, he is lying in bed, well-nourished, well-developed, alert and oriented. The fourth toe has a dressing in place. The dressing was removed and there is noticeable erythema about the fourth toe extending down towards the MTP joint. There is no other erythema involving the other toes. There is some visible swelling. There is approximately 1.5 cm wound on the lateral aspect of the fourth toe. This is relatively dry. I am unable to palpate a dorsalis pedis pulse at this time. IMAGING: The patient had a right forefoot MRI yesterday and the findings are concerning for osteomyelitis in the fourth toe involving the proximal and middle phalanges with overlying ulceration and cellulitis. There is no organized fluid collection to suggest an abscess. Also of concern is patient had arterial duplex scan of the lower extremity back in December which was significant for bilateral distal posterior tibial artery occlusion. ASSESSMENT: A 68-year-old male, uncontrolled diabetic with right fourth toe swelling, erythema and ulceration on the lateral aspect and MRI consistent with osteomyelitis. PLAN: Above discussed with the patient. We would recommend reconsulting vascular surgery because concern is for continuing lower extremity issues given the vascular disease. This will also be discussed with Dr. Hopkins to get his input and recommendations. This was also discussed with Dr. Peña who was present during examination.
--- NOTE | 2019-03-15 13:45 | Wound Consultation ---
Date of Consultation March 15, 2019 Assessment & Plan (1) Osteomyelitis of right foot: 68-year-old male with osteomyelitis of the right fourth toe. No debridement was required at this time. Will be dressed with Aquacel Ag. Wound culture was obtained. Continue antibiotics per infectious disease. Patient would likely benefit from surgical debridement, awaiting orthopedic consult. Thank you for allowing me to participate in the care of this patient. Please not hesitate to call with any questions. History of Present Illness Reason for Consultation: Right fourth toe wound Attending Physician: Barbara Durbin DO This is a 68-year-old male with a history of CKD, peripheral vascular disease, uncontrolled diabetes, hypertension, heart disease, Qfbar-Mtnsdhryb-Ktphd syndrome and history of left leg wound who was admitted with right fourth toe ulcer. MRI showed osteomyelitis. Patient states that the wound was discovered 3 days ago. Patient states that the wound has no pain but does have significant drainage. They report that they had iodoform gauze left over the been using the pack the wound. Patient mentions he cleaned the wound with a horse rag. He is currently on IV antibiotics. Patient had been seen back in December when he had his left leg wound however followed up with [facility]. Allergies Allergy/AdvReac Type Severity Reaction Status Date / Time sympathomimetics AdvReac Severe Chest Pain Uncoded 03/14/19 13:34 Home Medications Home Medications Medication Instructions Recorded Confirmed Type ondansetron 4 mg PO Q6H PRN #10 tab 08/20/18 03/14/19 Rx aspirin [Aspir-81] 81 mg PO DAILY 01/05/19 03/14/19 History ibuprofen 600 mg PO TID PRN 01/05/19 03/14/19 History cephalexin 500 mg capsule 500 mg PO BID #60 cap 01/21/19 03/14/19 Rx insulin NPH and regular human 26 unit SUBCUT AMPM 03/14/19 03/14/19 History [Novolin 70/30 U-100 Insulin] Patient History Medical History HE (acute kidney injury) Peripheral vascular disease Uncontrolled diabetes mellitus Cellulitis of left lower extremity without foot Diabetes (Chronic) Hypertension (Chronic) 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) Diabetic peripheral neuropathy (Chronic) Hallux abducto valgus, bilateral (Chronic) Surgical History History of back surgery (Resolved) Social History Preferred Language: Angolan Communication Ability: Effective Purchasing Assistant Required: No Beliefs That Will Affect Care: None Current Living Situation: Spouse Other Information That Helps Us Care for You: No Feels Safe at Home: Yes Safety Concerns: Feels Safe At This Time Smoking Status: Never smoker Hx Alcohol Use: No Hx Substance Use: No Review of Systems Review of Systems: All systems reviewed & are unremarkable except as noted in HPI & below Physical Exam Skin: Wound measuring 1.3 x 0.9 x 0.6 cm. This is a surface area of 1.17 cm. Wound is covered with fibrin and slough. There is exposed bone. Periwound is intact and erythematous. There is moderate drainage and no foul odor. Neurologic: awake; not confused Psychiatric: A+Ox3, euthymic affect Results & Data Vital Signs (Past 12 Hours) Vital Signs Temp Pulse Pulse Resp BP Pulse Ox 03/15/19 11:44 37.0 C 58 L 18 129/72 96 03/15/19 07:24 37.3 C 77 18 136/74 95 03/15/19 07:08 66 03/15/19 04:00 37.3 C 72 18 123/67 95 PG Care Time/CCT Total # of Minutes Spent Total Time Spent with Patient: Total time spent is greater than 50% in coordination of care (as documented) at patient's floor/unit and/or counseling patient:
--- NOTE | 2019-03-15 15:29 | Hospitalist Progress Note ---
Date of Service March 15, 2019 Assessment & Plan (1) Osteomyelitis of right foot: Vanc/zosyn, ID/ortho/wound care consults. Aquacel covering wound. Will be more aggressive with pain management. PAD present seen on us imaging previously. Await orthopedic recommendations. (2) Toe ulcer, right: diabetic foot ulceration, Aquacel to wound which is not currently draining. Plan as above. (3) Chronic kidney disease: around baseline. Received contrast with imaging. Monitor BMP. ? if on ACEI. Will clarify closer to discharge unless needed for BP control. (4) Peripheral vascular disease: -patient has not been taking aspirin at home -hold aspirin for now until deciding whether toe ulcer debridement needed (5) Uncontrolled diabetes mellitus: Uncontrolled, on insulin. A1C 9.6. Diabetic nurse to see patient for additional education. Basal bolus insulin while hospitalized for tighter control in setting of diabetic foot wound. 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 (7) DVT prophylaxis: Lovenox Full Code Dispo-cont hospitalization pending ortho recommendations. Barbara Durbin DO [facility] Hospitalist Subjective 68 yo M nonsmoker with PAD, ?peripheral neuropathy and uncontrolled diabetes on insulin presents with diabetic ulceration on his right foot along the lateral side of the fourth toe. This was noticed to be draining recently without known injury. He now has significant pain and foot MRI revealed osteomyelitis. He denies any systemic symptoms such as fevers or chills. He is otherwise tolerating PO and clinically well. He reports uncontrolled pain, however. He was placed on vanc/Zosyn on admission. Wound care placed Aquacel to wound. Ortho consult requested to consider the need for surgical debridement. Review of Systems Review of Systems: All systems reviewed & are unremarkable except as noted in HPI & below Physical Exam Physical Exam: CONSTITUTIONAL: WNWD, vitals as above, generally well- appearing EYES: normal conjunctivae, no scleral icterus ENT: MMM RESPIRATORY: clear to auscultation bilaterally, no crackles, rales or wheezes, normal respiratory effort CARDIOVASCULAR: regular rate and rhythm, S1 and 2 heard without murmurs, gallops or rubs, no JVD, no peripheral edema GASTROINTESTINAL: normal bowel sounds, soft, nontender, nondistended MUSCULOSKELETAL: strength 5/5 throughout, head is normocephalic and atraumatic SKIN: warm and dry, ulceration of lateral right fourth toe covered with Aquacel. NEUROLOGIC: CN 2-12 grossly intact, normal cognition, ?sensation deficit in feet but pain present so limited exam PSYCHIATRIC: alert cooperative and oriented to person, place and time. Results & Data Vital Signs (Past 12 Hours) Vital Signs Temp Pulse Pulse Resp BP Pulse Ox 03/15/19 14:53 37.3 C 70 18 128/69 96 03/15/19 11:44 37.0 C 58 L 18 129/72 96 03/15/19 07:24 37.3 C 77 18 136/74 95 03/15/19 07:08 66 03/15/19 04:00 37.3 C 72 18 123/67 95 Laboratory Results Short CBC 03/15/19 Range/Units 06:01 WBC 7.65 (4.8-10.8) K/uL Hgb 11.9 L (14.0-18.0) g/dL Hct 35.8 L (42-52) % Plt Count 182 (130-400) K/uL BMP 03/15/19 06:01 Sodium 137 Potassium 3.9 Chloride 106 Carbon Dioxide 25 BUN 17 Creatinine 1.20 Glucose 163 H Calcium 8.3 L Cardiac Enzymes 03/15/19 Range/Units 06:01 Total Creatine Kinase 103 (39-308) U/L Liver Function 03/15/19 Range/Units 06:01 Total Bilirubin 1.2 H (0.2-1) mg/dl AST 13 L (15-37) U/L ALT 17 (12-78) U/L Alkaline Phosphatase 92 (45-117) U/L Albumin 2.8 L (3.4-5.0) gm/dl Medications Administered Current Inpatient Medications Acetaminophen (Tylenol) 325 mg PO Q6H PRN PRN Reason: Pain or Fever Stop: 04/13/19 15:55 Dextrose (Dextrose 50%) 25 - 50 ml IV UD PRN; Protocol PRN Reason: Hypoglycemia Protocol Stop: 04/13/19 15:57 Enoxaparin Sodium (Lovenox) 40 mg SQ QAM [facility] Stop: 04/14/19 08:59 Last Admin: 03/15/19 09:09 Dose: Not Given Documented by: Gadobutrol (Gadavist 7.5ml) 8.8 ml IV ONCE PRN PRN Reason: Interaction Checking Stop: 03/18/19 16:48 Last Admin: 03/14/19 16:49 Dose: 8.8 ml Documented by: Glucagon (Glucagen) 1 mg SQ UD PRN; Protocol PRN Reason: Hypoglycemia Protocol Stop: 04/13/19 15:57 Glucose (Glucose 40%) 15 - 30 gm PO UD PRN; Protocol PRN Reason: Hypoglycemia Protocol Stop: 04/13/19 15:57 Glucose (Dex4 Glucose) 4 - 8 tabs PO UD PRN; Protocol PRN Reason: Hypoglycemia Protocol Stop: 04/13/19 15:57 Hydromorphone HCl (Dilaudid) 0.5 mg IV Q8H PRN PRN Reason: Severe Pain Stop: 03/28/19 15:55 Last Admin: 03/14/19 21:10 Dose: 0.5 mg Documented by: Piperacillin Sod/Tazobactam (Sod 3.375 gm/ Dextrose) 115 mls @ 28.75 mls/hr IV Q8H [facility]; Protocol Stop: 03/25/19 15:59 Last Admin: 03/15/19 13:48 Dose: 28.8 mls/hr Documented by: Vancomycin HCl 1,500 mg/ (Sodium Chloride) 530 mls @ 200 mls/hr IV Q16H [facility]; Protocol Stop: 04/25/19 15:59 Last Infusion: 03/15/19 08:30 Dose: Infused Documented by: Insulin Aspart (Novolog Flexpen) 0 units SC ACHS [facility] Stop: 04/13/19 20:59 Last Admin: 03/15/19 12:26 Dose: 12 units Documented by: Insulin Glargine (Lantus Solostar Pen) 15 units SC BID [facility] Stop: 04/13/19 20:59 Last Admin: 03/15/19 08:22 Dose: 15 units Documented by: Miscellaneous (Carbohydrates For Hypoglycemia) 15 - 30 gm PO UD PRN PRN Reason: Hypoglycemia Protocol Stop: 04/13/19 15:57 Miscellaneous Information (Consult) 1 ea N/A UD PRN PRN Reason: Consult Stop: 04/13/19 15:12 Miscellaneous Information (Consult) 1 ea N/A UD PRN PRN Reason: Consult Stop: 04/14/19 00:30 Ondansetron HCl (Zofran) 4 mg IV Q6H PRN PRN Reason: Nausea Stop: 04/13/19 16:03 Oxycodone HCl (Roxicodone Immediate Rel) 5 mg PO Q8H PRN PRN Reason: Moderate Pain Stop: 03/28/19 15:55 Last Admin: 03/15/19 08:28 Dose: 5 mg Documented by:
[2019-03-15] MEDS ORDERED: OXYCODONE/APAP 7.5/325MG TAB PO ONE (16:46)
[2019-03-15] MEDS: OXYCODONE HCL IR 5 MG TAB (IMMEDIATE RELEASE) PO PRN (20:40)
[2019-03-15] MEDS: DOCUSATE SODIUM 100 MG CAP PO SCH (20:44)
[2019-03-15] MEDS: SENNA 8.6 MG TAB PO SCH (20:44)
[2019-03-16] MEDS: PIPERACILLIN/TAZOBACTAM 3.375 GM in DEXTROSE 5% 100 ML IV SCH ×3 (06:15→21:45)
[2019-03-16] MEDS: OXYCODONE HCL IR 5 MG TAB (IMMEDIATE RELEASE) PO PRN ×3 (06:19→18:27)
[2019-03-16] MEDS: INSULIN ASPART 100 UNITS/ML 3 ML PEN SC SCH ×4 (08:03→20:33)
[2019-03-16] MEDS: INSULIN GLARGINE SOLOSTAR 100 UNITS/ML 3 ML PEN SC SCH ×2 (08:04→20:31)
[2019-03-16] MEDS: DOCUSATE SODIUM 100 MG CAP PO SCH ×2 (08:05→20:30)
[2019-03-16] MEDS: ENOXAPARIN INJ 40 MG/0.4 ML SYR SQ SCH (08:05)
[2019-03-16 08:49] LABS: Creatinine Clr Calc Pharmacy 54.5 ml/min; Est GFR (African American) 59.2; Est GFR (Non-African American) 51.1
--- NOTE | 2019-03-16 11:12 | Consultation ---
Date of Consultation March 16, 2019 Assessment & Plan (1) Peripheral vascular disease: Pt with known mild-moderate PAD. Previous arterial US from 3 months ago demonstrates diffuse disease without focal stenosis. Exam reveals excellent doppler signals to foot and no sign of ischemia. No indications for vascular surgical intervention at this time. Recommend proceed with R 4th toe surgery per orthopedics. Will be happy to reeval in future if any concerns regarding healing of wound. Please call if needed. Present on Admission?: Yes History of Present Illness Reason for Consultation: osteomyelitis, PAD Attending Physician: Barbara Durbin DO History of Present Illness 68 yo m with hx of DMII, admitted with osteomyelitis of R 4th toe, seen in consultation today for PAD noted on previous arterial US. Pt states his noted discoloration of his R 4th toe and he had it eval and the infection was found. Pt himself did not note any sx of R toe infection. Pt admits numbness of BLE and occasional sharp, shooting pains to BLE, sometimes when ambulating, sometimes when lying in bed or sitting. Denies calf or thigh claudication. Denies GUZMAN, fever, chills, kezia pain, SOB, abd pain, N/V, other complaints. Pt previously seen by Dr Roman and myself a few months ago for L leg infection and PAD, no intervention recommended at that time. Arterial US from December 2018 demonstrates diffuse atherosclerosis without focal stenosis. No new US performed this admission. Allergies Allergy/AdvReac Type Severity Reaction Status Date / Time sympathomimetics AdvReac Severe Chest Pain Uncoded 03/14/19 13:34 Home Medications Home Medications Medication Instructions Recorded Confirmed Type ondansetron 4 mg PO Q6H PRN #10 tab 08/20/18 03/14/19 Rx aspirin [Aspir-81] 81 mg PO DAILY 01/05/19 03/14/19 History ibuprofen 600 mg PO TID PRN 01/05/19 03/14/19 History cephalexin 500 mg capsule 500 mg PO BID #60 cap 01/21/19 03/14/19 Rx insulin NPH and regular human 26 unit SUBCUT AMPM 03/14/19 03/14/19 History [Novolin 70/30 U-100 Insulin] Patient History Medical History HE (acute kidney injury) Peripheral vascular disease Uncontrolled diabetes mellitus Cellulitis of left lower extremity without foot Diabetes (Chronic) Hypertension (Chronic) 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) Diabetic peripheral neuropathy (Chronic) Hallux abducto valgus, bilateral (Chronic) Surgical History History of back surgery (Resolved) Social History Preferred Language: [place] Communication Ability: Effective Cloth Washer Required: No Beliefs That Will Affect Care: None Current Living Situation: Spouse Other Information That Helps Us Care for You: No Feels Safe at Home: Yes Safety Concerns: Feels Safe At This Time Smoking Status: Never smoker Hx Alcohol Use: No Hx Substance Use: No Review of Systems Review of Systems: All systems reviewed & are unremarkable except as noted in HPI & below Physical Exam Constitutional: WD/WN, vitals as above healthy appearing, cooperative and comfortable; not in distress and not combative Eyes: PERRL, conjunctivae normal, anicteric sclerae ENMT: external ear and nose normal, oropharynx normal Ears: no hearing impairment Neck: trachea midline Respiratory: normal respiratory effort, lungs clear to auscultation Cardiovascular: Rate/Rhythm: regular rate and regular rhythm Vessels: femoral pulses present, posterior tibial pulses present (easily found with doppler, biphasic signal RLE), dorsalis pedis pulses present (easily found with doppler, biphasic signal), brachial pulses present and radial pulses present; no carotid bruit and + abnormal peripheral pulses Extremities: normal capillary refill and + edema (trace BLE) Gastrointestinal (Abdomen): normal bowel sounds, soft, nontender, no hepatosplenomegaly Musculoskeletal: Head/Neck/Chest: normocephalic Extremities: strength 5/5 throughout and + cyanosis (R 4th toe no cap refill, wound dressing noted with local erythema) Skin: normal turgor and + wound (R 4th toe) Neurologic: moves all extremities and awake; no focal motor deficits and not confused Psychiatric: A+Ox3, euthymic affect Results & Data Vital Signs (Past 12 Hours) Vital Signs Temp Pulse Pulse Resp BP Pulse Ox 03/16/19 07:51 37.1 C 72 18 116/69 97 03/16/19 07:23 67 11/05/19 03:05 37.1 C 66 18 117/71 93 03/15/19 23:48 36.8 C 72 20 123/76 93
[2019-03-16] MEDS ORDERED: VANCOMYCIN TROUGH ONE (13:30)
[2019-03-16] MEDS: VANCOMYCIN HCL 1,500 MG in SODIUM CHLORIDE 0.9% 500 ML IV SCH (14:20)
[2019-03-16] MEDS: HYDROmorphone INJ 0.5 MG/0.5 ML SYR IV PRN ×2 (14:29→23:24)
--- NOTE | 2019-03-16 14:30 | Infectious Disease Progress Nt ---
Date of Service March 16, 2019 Assessment & Plan (1) Osteomyelitis of right foot: continue broad specturm abx for now, awit ID/sensitivities of gnr. await plan for surgery vs local care. will likely need min 4-6 weeks abx and ongoing wound care due to MRI findings of osteo. Subjective pt remains on vanco and zosyn, tolerating well. tmax overnight 37.7. wound culture obtained yesterday, growing few gnr. ID pending. eval by wound center, ortho and vascular. no plan for vascular intervention, may undergo ortho debridement. Results & Data Vital Signs (Past 12 Hours) Vital Signs Temp Pulse Pulse Resp BP Pulse Ox 03/16/19 11:35 36.9 C 69 18 147/74 H 96 03/16/19 07:51 37.1 C 72 18 116/69 97 03/16/19 07:23 67 03/16/19 03:05 37.1 C 66 18 117/71 93 Laboratory Results Microbiology 03/15/19 11:15 Foot,Right Gram Stain - Final 03/15/19 11:15 Foot,Right Wound Culture - Preliminary Gram negative bacilli PG Care Time/CCT Total # of Minutes Spent Total Time Spent with Patient: Total time spent is greater than 50% in coordination of care (as documented) at patient's floor/unit and/or counseling patient:
--- NOTE | 2019-03-16 15:07 | Pharmacy Report ---
Pharmacy Abx Dose Short Note - Date of Service March 16, 2019 - Assessment & Plan A/P Mr. Monzon's vancomycin trough 12.6mcg/mL. This level is not indicative of Css. We will cont. with the current regimen as I anticipate vanco concentration to be bt 15-20mcg/mL at Css. There was a slight increase in SCr overnight: 1.2 --> 1.42mg/dL. If renal fxn continues to decline, pharmacy will adjust appropriately. Vancomycin level ordered for 03/17 @0530. This level will be reflective of Css. Per ID, continue both vancomycin and zosyn. Foot culture is growing GNB. Pharmacy will continue to follow and will adjust dose/frequency as necessary. Thank you.
--- NOTE | 2019-03-16 18:40 | Hospitalist Progress Note ---
Date of Service March 16, 2019 Assessment & Plan (1) Osteomyelitis of right foot: Vanc/zosyn, ID/ortho/wound care consults. Aquacel covering wound. Surgical debridement by Ortho is thought necessary. Vascular consulted regardingn PAD in arteries leading to the area. Will be more aggressive with pain management (10 mg oxy ok). PAD present seen on us imaging previously. Await orthopedic recommendations. Appreciate Vascular seeing the patient. (2) Toe ulcer, right: diabetic foot ulceration, Aquacel to wound which is not currently draining. Plan as above. (3) Chronic kidney disease: around baseline. Received contrast with imaging. Likely has a contrast induced nephropathy. Cont to trend BMP. Consider IVF if creat continues to rise. (4) Peripheral vascular disease: -patient has not been taking aspirin at home -hold aspirin for now until deciding whether toe ulcer debridement needed (5) Uncontrolled diabetes mellitus: A1C 9.6. Diabetic nurse to see patient for additional education. Basal bolus insulin while hospitalized for tighter control in setting of diabetic foot wound. Glucose is controlled. 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 (7) DVT prophylaxis: Lovenox Full Code Dispo-cont hospitalization pending ortho recommendations. Barbara Durbin DO [facility] Hospitalist Subjective feeling well glucose controlled tolerating food well afebrile pain is not well controlled. Review of Systems Review of Systems: All systems reviewed & are unremarkable except as noted in HPI & below Physical Exam Physical Exam: CONSTITUTIONAL: WNWD, vitals as above, generally well- appearing EYES: normal conjunctivae, no scleral icterus ENT: MMM RESPIRATORY: clear to auscultation bilaterally, no crackles, rales or wheezes, normal respiratory effort CARDIOVASCULAR: regular rate and rhythm, S1 and 2 heard without murmurs, gallops or rubs, no JVD, no peripheral edema GASTROINTESTINAL: normal bowel sounds, soft, nontender, nondistended MUSCULOSKELETAL: strength 5/5 throughout, head is normocephalic and atraumatic SKIN: warm and dry, ulceration of lateral right fourth toe covered with Aquacel. NEUROLOGIC: CN 2-12 grossly intact, normal cognition, ?sensation deficit in feet but pain present so limited exam PSYCHIATRIC: alert cooperative and oriented to person, place and time. Results & Data Vital Signs (Past 12 Hours) Vital Signs Temp Pulse Pulse Resp BP Pulse Ox 03/16/19 15:01 36.8 C 64 18 120/69 96 03/16/19 11:35 36.9 C 69 18 147/74 H 96 03/16/19 07:51 37.1 C 72 18 116/69 97 03/16/19 07:23 67 Laboratory Results BMP 03/16/19 08:14 Creatinine 1.42 H Medications Administered Current Inpatient Medications Acetaminophen (Tylenol) 325 mg PO Q6H PRN PRN Reason: Pain or Fever Stop: 04/13/19 15:55 Dextrose (Dextrose 50%) 25 - 50 ml IV UD PRN; Protocol PRN Reason: Hypoglycemia Protocol Stop: 04/13/19 15:57 Docusate Sodium (Colace) 100 mg PO BID [facility] Stop: 04/14/19 20:59 Last Admin: 03/16/19 08:05 Dose: 100 mg Documented by: Enoxaparin Sodium (Lovenox) 40 mg SQ QAM [facility] Stop: 04/14/19 08:59 Last Admin: 03/16/19 08:05 Dose: Not Given Documented by: Gadobutrol (Gadavist 7.5ml) 8.8 ml IV ONCE PRN PRN Reason: Interaction Checking Stop: 03/18/19 16:48 Last Admin: 03/14/19 16:49 Dose: 8.8 ml Documented by: Glucagon (Glucagen) 1 mg SQ UD PRN; Protocol PRN Reason: Hypoglycemia Protocol Stop: 04/13/19 15:57 Glucose (Glucose 40%) 15 - 30 gm PO UD PRN; Protocol PRN Reason: Hypoglycemia Protocol Stop: 04/13/19 15:57 Glucose (Dex4 Glucose) 4 - 8 tabs PO UD PRN; Protocol PRN Reason: Hypoglycemia Protocol Stop: 04/13/19 15:57 Hydromorphone HCl (Dilaudid) 0.5 mg IV Q8H PRN PRN Reason: Severe Pain Stop: 03/28/19 15:55 Last Admin: 03/16/19 14:29 Dose: 0.5 mg Documented by: Piperacillin Sod/Tazobactam (Sod 3.375 gm/ Dextrose) 115 mls @ 28.75 mls/hr IV Q8H [facility]; Protocol Stop: 03/25/19 15:59 Last Infusion: 03/16/19 18:18 Dose: Infused Documented by: Vancomycin HCl 1,500 mg/ (Sodium Chloride) 530 mls @ 200 mls/hr IV Q16H [facility]; Protocol Stop: 04/25/19 15:59 Last Infusion: 03/16/19 16:59 Dose: Infused Documented by: Insulin Aspart (Novolog Flexpen) 0 units SC ACHS [facility] Stop: 04/13/19 20:59 Last Admin: 03/16/19 17:14 Dose: 10 units Documented by: Insulin Glargine (Lantus Solostar Pen) 15 units SC BID [facility] Stop: 04/13/19 20:59 Last Admin: 03/16/19 08:04 Dose: 15 units Documented by: Miscellaneous (Carbohydrates For Hypoglycemia) 15 - 30 gm PO UD PRN PRN Reason: Hypoglycemia Protocol Stop: 04/13/19 15:57 Miscellaneous Information (Consult) 1 ea N/A UD PRN PRN Reason: Consult Stop: 04/13/19 15:12 Miscellaneous Information (Consult) 1 ea N/A UD PRN PRN Reason: Consult Stop: 04/14/19 00:30 Ondansetron HCl (Zofran) 4 mg IV Q6H PRN PRN Reason: Nausea Stop: 04/13/19 16:03 Oxycodone HCl (Roxicodone Immediate Rel) 5 - 10 mg PO Q6H PRN PRN Reason: pain Stop: 03/30/19 18:44 Sennosides (Senokot) 17.2 mg PO HS [facility] Stop: 04/14/19 20:59 Last Admin: 03/15/19 20:44 Dose: 17.2 mg Documented by:
[2019-03-16] MEDS: SENNA 8.6 MG TAB PO SCH (20:30)
[2019-03-17] MEDS ORDERED: VANCOMYCIN TROUGH ONE ×2 (05:30→21:30)
[2019-03-17] MEDS: PIPERACILLIN/TAZOBACTAM 3.375 GM in DEXTROSE 5% 100 ML IV SCH ×3 (05:39→21:37)
[2019-03-17] MEDS: VANCOMYCIN HCL 1,500 MG in SODIUM CHLORIDE 0.9% 500 ML IV SCH ×2 (05:39→23:13)
[2019-03-17] MEDS: OXYCODONE HCL IR 5 MG TAB (IMMEDIATE RELEASE) PO PRN ×3 (06:01→17:56)
[2019-03-17 06:23] LABS: Hematocrit (blood only) 34.1 % (42-52); Hemoglobin 11.6 g/dL (14.0-18.0); Mean Corpuscular Hemoglobin 29.3 pg (25-34); Mean Corpuscular Volume 86.1 fL (80-100); Mean Platelet Volume 9.9 fL (7.4-10.4); Platelet Count 205 K/uL (130-400); RDW Coefficient of Variation 12.7 % (11.5-14.5); RDW Standard Deviation 40.2 fL (36.4-46.3); Red Blood Count 3.96 M/uL (4.7-6.1); White Blood Count 7.65 K/uL (4.8-10.8)
[2019-03-17 07:06] LABS: Calcium 8.6 mg/dl (8.5-10.1); Creatinine Clr Calc Pharmacy 44.5 ml/min; Est GFR (African American) 46.3; Potassium 3.8 mmol/L (3.5-5.1)
[2019-03-17] MEDS: DOCUSATE SODIUM 100 MG CAP PO SCH ×2 (08:18→20:37)
[2019-03-17] MEDS: ENOXAPARIN INJ 40 MG/0.4 ML SYR SQ SCH (08:19)
[2019-03-17] MEDS: INSULIN GLARGINE SOLOSTAR 100 UNITS/ML 3 ML PEN SC SCH ×2 (08:19→20:55)
[2019-03-17] MEDS: SODIUM CHLORIDE 0.9% 1000ML 1,000 ML IV SCH ×2 (08:20→16:33)
[2019-03-17] MEDS: INSULIN ASPART 100 UNITS/ML 3 ML PEN SC SCH ×4 (08:21→20:55)
--- NOTE | 2019-03-17 10:11 | Infectious Disease Progress Nt ---
Date of Service March 17, 2019 Assessment & Plan (1) Osteomyelitis of right foot: jose zosyn for now, will stop vanco, no gpc identified and creat increased, vanco trough not elevated, however. follow cultures, await surgical plan. will likely need 4-6 week abx, await final cultures. can follow in wound center post d/c. ID service to follow. Subjective pt seen in followup, doing well on abx. remains on vanco and zoysn. wound cultur e from 03/15 growing gnr, ID pending. tmax 37.6 overnight, currently afebrile.creat continues to increase, 1.7 today. vanco trough 13.7. no gpc found, was on keflex prior to admission for previous rle wound, now healed. no pain in foot. no abd pain, no n/v/d, eating well. toelrating abx. awiating surgical plan. Review of Systems Review of Systems: All systems reviewed & are unremarkable except as noted in HPI & below Physical Exam Constitutional: WD/WN, vitals as above Eyes: PERRL, conjunctivae normal, anicteric sclerae ENMT: external ear and nose normal, oropharynx normal Neck: normal visual inspection Respiratory: normal respiratory effort, lungs clear to auscultation Cardiovascular: RRR, no murmur, no edema Gastrointestinal (Abdomen): normal bowel sounds, soft, nontender, no hepatosplenomegaly Musculoskeletal: no cyanosis or clubbing, extremities motor strength 5/5 Skin: no rashes, warm and dry + wound (open lateral 4th toe, warmth, erythema, no purulence) Psychiatric: A+Ox3, euthymic affect Results & Data Vital Signs (Past 12 Hours) Vital Signs Temp Pulse Pulse Resp BP Pulse Ox 03/17/19 07:30 37 C 75 18 138/72 95 03/17/19 03:40 37 C 75 18 118/70 93 03/16/19 23:22 37.4 C 77 18 133/70 93 Laboratory Results Microbiology 03/15/19 11:15 Foot,Right Gram Stain - Final 03/15/19 11:15 Foot,Right Wound Culture - Preliminary Gram negative bacilli Staphylococcus aureus PG Care Time/CCT Total # of Minutes Spent Total Time Spent with Patient: Total time spent is greater than 50% in coordination of care (as documented) at patient's floor/unit and/or counseling patient:
--- NOTE | 2019-03-17 14:09 | Pharmacy Report ---
Pharmacy Abx Dose Progress Nt - Date of Service March 17, 2019 - Pharmacy Dosing Scope The patient is currently receiving the following antimicrobial agents per Pharmacy consult: Vancomycin 1500 mg IV every 16 hours Zosyn 3.375g IV every 8 hours (extended infusion) - Objective Vital Signs (Past 12hrs): Vital Signs Temp Pulse Pulse Resp BP Pulse Ox 03/17/19 12:00 36.8 C 67 16 138/79 97 03/17/19 07:30 37 C 75 18 138/72 95 03/17/19 03:40 37 C 75 18 118/70 93 Lab Results (24hrs): Laboratory Tests (24 Hours) 03/17/19 03/17/19 03/17/19 05:33 05:33 05:33 WBC 7.65 Creatinine 1.74 H D Est Cr Clr Drug Dosing 44.5 Vancomycin Trough 13.7 03/16/19 13:48 WBC Creatinine Est Cr Clr Drug Dosing Vancomycin Trough 12.6 Micro Results: 03/15/19 11:15 Gram Stain - Final Foot,Right - Assessment & Plan Assessment 68 year old M receiving vancomycin and zosyn IV for treatment of right foot osteomyelitis * R foot culture is growing GNB and S. aureus * h/o MSSA from left leg culture on 01/05/19 Plan Vancomycin IV * Trough level of 13.7 mcg/mL is subtherapeutic * Continue dose of 1500 mg IV q16h despite subtherapeutic trough level. I anticipate level being > 15 mcg/mL at time of next dose due to decline in renal function. Will repeat trough level prior to the next dose (2129) to ensure the patient does not remain subtherapeutic and/or become supratherapeutic due to renal impairment. * Goal trough level for osteo: 15-20 mcg/mL * Patient may not be a great candidate for prolonged vancomycin. Risk of HE is increased by the combination of vanco and zosyn. Consider alternative anti- MRSA agent if S.aureus results as MRSA. Pharmacy will continue to follow and will adjust dose/frequency as necessary. Thank you.
--- NOTE | 2019-03-17 17:27 | Hospitalist Progress Note ---
Date of Service March 17, 2019 Assessment & Plan (1) Osteomyelitis of right foot: Vanc/zosyn, ID/ortho/wound care consults. Aquacel covering wound. Surgical debridement is thought necessary but still awaiting definitive recommendation and plan by foot and ankle specialist. Vascular surgery has seen the patient and doesn't feel vascular intervention is appropriate at this time. Cont aggressive pain control. (2) Toe ulcer, right: diabetic foot ulceration with underlying osteo, Aquacel to wound which is not currently draining. Daily wound care. Plan as above. (3) Acute on chronic kidney failure: Etiologies include but not limited to prerenal azotemia from infection, nephrotoxic effects from Vanc/Zosyn combination. Urine studies. Continuing current antibiotics based on culture results and ID recommendations. Started IVF for today and trend BMP in am. (4) Peripheral vascular disease: -patient has not been taking aspirin at home -hold aspirin for now until deciding whether toe ulcer debridement needed (5) Uncontrolled diabetes mellitus: A1C 9.6. Diabetic nurse to see patient for additional education. Basal bolus insulin while hospitalized for tighter control in setting of diabetic foot wound. Glucose is controlled. Pt came in on NPH, however, insurance coverage has changed and he prefers to use the Lantus/Novolog combination from the hospital at time of discharge. 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 (7) DVT prophylaxis: Lovenox Full Code Dispo-cont hospitalization pending ortho recommendations. Barbara Durbin DO [facility] Hospitalist Subjective Pain still present in R foot Persistent Red streaking which is new since admission but seen yesterday on exa m. Tolerating PO +BM Afebrile Review of Systems Review of Systems: All systems reviewed & are unremarkable except as noted in HPI & below Physical Exam Physical Exam: CONSTITUTIONAL: WNWD, vitals as above, generally well- appearing EYES: normal conjunctivae, no scleral icterus ENT: MMM RESPIRATORY: clear to auscultation bilaterally, no crackles, rales or wheezes, normal respiratory effort CARDIOVASCULAR: regular rate and rhythm, S1 and 2 heard without murmurs, gallops or rubs, no JVD, no peripheral edema GASTROINTESTINAL: normal bowel sounds, soft, nontender, nondistended MUSCULOSKELETAL: strength 5/5 throughout, head is normocephalic and atraumatic SKIN: warm and dry, ulceration of lateral right fourth toe covered with Aquacel. erythematous, ecchymotic area on dorsum of R foot distally NEUROLOGIC: CN 2-12 grossly intact, normal cognition, ?sensation deficit in feet but pain present so limited exam PSYCHIATRIC: alert cooperative and oriented to person, place and time. Results & Data Vital Signs (Past 12 Hours) Vital Signs Temp Pulse Resp BP Pulse Ox 03/17/19 15:10 36.7 C 76 18 141/76 H 91 03/17/19 12:00 36.8 C 67 16 138/79 97 03/17/19 07:30 37 C 75 18 138/72 95 Laboratory Results Short CBC 03/17/19 Range/Units 05:33 WBC 7.65 (4.8-10.8) K/uL Hgb 11.6 L (14.0-18.0) g/dL Hct 34.1 L (42-52) % Plt Count 205 (130-400) K/uL BMP 03/17/19 05:33 Sodium 135 L Potassium 3.8 Chloride 104 Carbon Dioxide 26 BUN 31 H D Creatinine 1.74 H D Glucose 206 H Calcium 8.6 Medications Administered Current Inpatient Medications Acetaminophen (Tylenol) 325 mg PO Q6H PRN PRN Reason: Pain or Fever Stop: 04/13/19 15:55 Dextrose (Dextrose 50%) 25 - 50 ml IV UD PRN; Protocol PRN Reason: Hypoglycemia Protocol Stop: 04/13/19 15:57 Docusate Sodium (Colace) 100 mg PO BID [facility] Stop: 04/14/19 20:59 Last Admin: 03/17/19 08:18 Dose: 100 mg Documented by: Enoxaparin Sodium (Lovenox) 40 mg SQ QAM [facility] Stop: 04/14/19 08:59 Last Admin: 03/17/19 08:19 Dose: Not Given Documented by: Gadobutrol (Gadavist 7.5ml) 8.8 ml IV ONCE PRN PRN Reason: Interaction Checking Stop: 03/18/19 16:48 Last Admin: 03/14/19 16:49 Dose: 8.8 ml Documented by: Glucagon (Glucagen) 1 mg SQ UD PRN; Protocol PRN Reason: Hypoglycemia Protocol Stop: 04/13/19 15:57 Glucose (Glucose 40%) 15 - 30 gm PO UD PRN; Protocol PRN Reason: Hypoglycemia Protocol Stop: 04/13/19 15:57 Glucose (Dex4 Glucose) 4 - 8 tabs PO UD PRN; Protocol PRN Reason: Hypoglycemia Protocol Stop: 04/13/19 15:57 Hydromorphone HCl (Dilaudid) 0.5 mg IV Q8H PRN PRN Reason: Severe Pain Stop: 03/28/19 15:55 Last Admin: 03/16/19 23:24 Dose: 0.5 mg Documented by: Piperacillin Sod/Tazobactam (Sod 3.375 gm/ Dextrose) 115 mls @ 28.75 mls/hr IV Q8H [facility]; Protocol Stop: 03/25/19 15:59 Last Admin: 03/17/19 13:37 Dose: 28.8 mls/hr Documented by: Vancomycin HCl 1,500 mg/ (Sodium Chloride) 530 mls @ 200 mls/hr IV Q16H [facility]; Protocol Stop: 04/25/19 15:59 Last Infusion: 03/17/19 08:18 Dose: Infused Documented by: Sodium Chloride (Nss 1000ml) 1,000 mls @ 125 mls/hr IV .Q8H [facility] Stop: 04/16/19 07:59 Last Admin: 03/17/19 16:33 Dose: 125 mls/hr Documented by: Insulin Aspart (Novolog Flexpen) 0 units SC ACHS [facility] Stop: 04/13/19 20:59 Last Admin: 03/17/19 17:10 Dose: 8 units Documented by: Insulin Glargine (Lantus Solostar Pen) 15 units SC BID [facility] Stop: 04/13/19 20:59 Last Admin: 03/17/19 08:19 Dose: 15 units Documented by: Miscellaneous (Carbohydrates For Hypoglycemia) 15 - 30 gm PO UD PRN PRN Reason: Hypoglycemia Protocol Stop: 04/13/19 15:57 Miscellaneous Information (Consult) 1 ea N/A UD PRN PRN Reason: Consult Stop: 04/13/19 15:12 Miscellaneous Information (Consult) 1 ea N/A UD PRN PRN Reason: Consult Stop: 04/14/19 00:30 Ondansetron HCl (Zofran) 4 mg IV Q6H PRN PRN Reason: Nausea Stop: 04/13/19 16:03 Oxycodone HCl (Roxicodone Immediate Rel) 5 - 10 mg PO Q6H PRN PRN Reason: pain Stop: 03/30/19 18:44 Last Admin: 03/17/19 11:54 Dose: 10 mg Documented by: Sennosides (Senokot) 17.2 mg PO HS [facility] Stop: 04/14/19 20:59 Last Admin: 03/16/19 20:30 Dose: 17.2 mg Documented by:
--- NOTE | 2019-03-17 17:27 | Orthopedic Progress Note ---
Date of Service March 17, 2019 Assessment & Plan (1) Osteomyelitis of right foot: Osteomyelitis proximal phalanx middle phalanx per MRI with no abscess. Currently no draining. Current appearance appears to be more vascular although Doppler studies demonstrated adequate blood supply and patient does have posterior tibial occlusion but may have small vessel disease related to diabetes. Not clear whether the necrotic area needs to be debrided or not at this time. Will relay this information to our foot and ankle specialist Dr. Hopkins and he will likely evaluate him within the next day or 2 and would recommend continue with IV antibiotics and monitor circulation of the toe and allow any further demarcation of necrosis for now. Would avoid any thick dressing between the fourth and fifth toe to mitigate any undue pressure that would cause more pressure type necrosis. Subjective No new complaints does not feel sick Review of Systems Review of Systems: No evidence of systemic illness Physical Exam Physical Exam: Right fourth toe has 1 cm diameter necrosis lateral proximal phalanx area no drainage no pus can be expressed from wound. There is a purplish discoloration that does not rupert on the dorsum of the foot extending proximal to that toe and purplish discoloration of the toe itself although he does have reasonable capillary refill that dusky appearance appears to be more vascular in nature. Results & Data Vital Signs (Past 12 Hours) Vital Signs Temp Pulse Resp BP Pulse Ox 03/17/19 15:10 36.7 C 76 18 141/76 H 91 03/17/19 12:00 36.8 C 67 16 138/79 97 03/17/19 07:30 37 C 75 18 138/72 95
[2019-03-17] MEDS: SENNA 8.6 MG TAB PO SCH (20:37)
[2019-03-17 21:17] LABS: Appearance Urine Clear (Clear); Bilirubin Urine Negative (Negative); Blood Urine Negative (Negative); Color Urine Yellow; Glucose Urine UA 1+ (Negative); Ketones Urine Negative (Negative); Leukocyte Esterase Urine Negative (Negative); Nitrite Urine Negative (Negative); Protein Urine Negative (Negative); Specific Gravity Urine 1.019 (1.000-1.030); Urobilinogen Urine Negative (Negative); pH Urine 5.5 (4.5-7.5)
[2019-03-17] MEDS: HEPARIN SOD 5,000 UNIT/0.5 ML VIAL SQ SCH (21:37)
[2019-03-17 22:11] LABS: Creatinine Clr Calc Pharmacy 40.5 ml/min; Est GFR (African American) 41.4; Est GFR (Non-African American) 35.7
[2019-03-18] MEDS: ACETAMINOPHEN 325 MG TAB PO PRN ×2 (00:03→16:52)
[2019-03-18] MEDS: OXYCODONE HCL IR 5 MG TAB (IMMEDIATE RELEASE) PO PRN ×4 (00:03→20:41)
[2019-03-18] MEDS: SODIUM CHLORIDE 0.9% 1000ML 1,000 ML IV SCH ×3 (00:48→16:46)
[2019-03-18] MEDS ORDERED: POLYETHYLENE (MIRALAX) 17 GM PACK PO PRN (01:53)
[2019-03-18] MEDS: DOCUSATE SODIUM/SENNA 50/8.6MG TAB PO SCH ×3 (04:34→20:41)
[2019-03-18] MEDS: PIPERACILLIN/TAZOBACTAM 3.375 GM in DEXTROSE 5% 100 ML IV SCH ×3 (05:40→21:52)
[2019-03-18] MEDS: HEPARIN SOD 5,000 UNIT/0.5 ML VIAL SQ SCH ×3 (05:41→20:55)
[2019-03-18 07:45] LABS: Hematocrit (blood only) 31.8 % (42-52); Hemoglobin 10.9 g/dL (14.0-18.0); Mean Corpuscular Hemoglobin 29.4 pg (25-34); Mean Corpuscular Hgb Conc 34.3 g/dL (32-36); Mean Corpuscular Volume 85.7 fL (80-100); Mean Platelet Volume 9.7 fL (7.4-10.4); Platelet Count 198 K/uL (130-400); RDW Coefficient of Variation 12.5 % (11.5-14.5); RDW Standard Deviation 39.3 fL (36.4-46.3); Red Blood Count 3.71 M/uL (4.7-6.1); White Blood Count 7.03 K/uL (4.8-10.8)
[2019-03-18 08:19] LABS: BUN Creatinine Ratio 18.1 (10-20); C Reactive Protein 6.85 mg/dl (0-0.29); Calcium 8.7 mg/dl (8.5-10.1); Creatinine Clr Calc Pharmacy 52.9 ml/min; Est GFR (African American) 51.7; Est GFR (Non-African American) 44.6; Potassium 3.7 mmol/L (3.5-5.1)
[2019-03-18] MEDS: INSULIN ASPART 100 UNITS/ML 3 ML PEN SC SCH ×4 (08:47→20:42)
[2019-03-18] MEDS: INSULIN GLARGINE SOLOSTAR 100 UNITS/ML 3 ML PEN SC SCH ×2 (08:48→20:42)
--- NOTE | 2019-03-18 14:36 | Hospitalist Progress Note ---
Date of Service March 18, 2019 Assessment & Plan (1) Osteomyelitis of right foot: Has osteomyelitis of fourth toe of right foot. MRI proven involving the proximal and middle phalanges with adjoining spreading cellulitis Was on intravenous vanc and Zosyn, ID/ortho/wound care consults. Aquacel covering wound. Appreciate orthopedic input and recommendation Not for any surgical procedure Appreciate ID input and recommendation-will need 4 to 6 weeks of intravenous antibiotic Wound culture grew gram-negative bacilli and Staphylococcus aureus which is pansensitive Vancomycin has been discontinued Will get ID recommendation about ongoing antibiotic (2) Toe ulcer, right: Diabetic foot ulceration with underlying osteo, Aquacel to wound which is not currently draining. Daily wound care. Plan as above. (3) Acute on chronic kidney failure: Etiologies include but not limited to prerenal azotemia from infection, nephrotoxic effects from Vanc/Zosyn combination. Urine studies. Continuing current antibiotics based on culture results and ID recommendations. Started IVF for today and trend BMP in am. Creatinine has been improving (4) Peripheral vascular disease: -patient has not been taking aspirin at home -hold aspirin for now until deciding whether toe ulcer debridement needed (5) Uncontrolled diabetes mellitus: A1C 9.6. Diabetic nurse to see patient for additional education. Basal bolus insulin while hospitalized for tighter control in setting of diabetic foot wound. Glucose is controlled. Pt came in on NPH, however, insurance coverage has changed and he prefers to use the Lantus/Novolog combination from the hospital at time of discharge. 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 (7) DVT prophylaxis: Lovenox Full Code Dispo-cont hospitalization pending ortho recommendations. Subjective 03/18 The patient was seen and examined in medical telemetry unit He has type 2 diabetes with peripheral vascular disease and was admitted with right toe osteomyelitis He complains to have some pain in the right foot and adjoining redness with tenderness Denies any fever and/or chills Denies any other symptoms Review of Systems Review of Systems: All systems reviewed and are unremarkable except as noted below Musculoskeletal: Pain in the right foot with adjoining redness and tenderness involving the lateral half of right foot. Right foot toe is gangrenous which is dry Physical Exam Physical Exam: Lying in bed comfortably Constitutional: well developed and well nourished; no acute distress and not ill appearing Eyes: PERRL, conjunctivae normal, anicteric sclerae ENMT: external ear and nose normal, oropharynx normal Neck: trachea midline, no thyromegaly Respiratory: normal respiratory effort; no respiratory distress Auscultation: lungs clear to auscultation bilaterally Cardiovascular: Rate/Rhythm: regular rate and regular rhythm Heart Sounds: no murmur Vessels: dorsalis pedis pulses present (Not palpable) Extremities: + pedal edema (More on the right side and involving the right foot and adjoining area) Gastrointestinal (Abdomen): Inspection/Auscultation: abdomen normal to inspection and normal bowel sounds Percussion/Palpation: abdomen soft Musculoskeletal: Movement of the right toes and ankle are painful Skin: Redness and dusky discoloration involving the right fourth toe and lateral part of right foot with some increased local temperature and tenderness Results & Data Vital Signs (Past 12 Hours) Vital Signs Temp Pulse Resp BP Pulse Ox 03/18/19 11:43 37 C 69 18 143/71 H 94 03/18/19 07:13 36.9 C 69 18 129/72 95 03/18/19 04:00 37.5 C 76 20 151/76 H 94 Laboratory Results Short CBC 03/18/19 Range/Units 07:24 WBC 7.03 (4.8-10.8) K/uL Hgb 10.9 L (14.0-18.0) g/dL Hct 31.8 L (42-52) % Plt Count 198 (130-400) K/uL BMP 03/17/19 03/18/19 21:26 07:24 Sodium 136 Potassium 3.7 Chloride 107 Carbon Dioxide 23 BUN 29 H Creatinine 1.91 H 1.59 H D Glucose 138 H Calcium 8.7 Urine 03/17/19 Range/Units 21:10 Urine Color Yellow Urine Appearance Clear (Clear) Urine pH 5.5 (4.5-7.5) Ur Specific [place] 1.019 (1.000-1.030) Urine Protein Negative (Negative) Urine Glucose (UA) 1+ H (Negative) Medications Administered Current Inpatient Medications Acetaminophen (Tylenol) 325 mg PO Q6H PRN PRN Reason: Pain or Fever Stop: 04/13/19 15:55 Last Admin: 03/18/19 00:03 Dose: 325 mg Documented by: Dextrose (Dextrose 50%) 25 - 50 ml IV UD PRN; Protocol PRN Reason: Hypoglycemia Protocol Stop: 04/13/19 15:57 Gadobutrol (Gadavist 7.5ml) 8.8 ml IV ONCE PRN PRN Reason: Interaction Checking Stop: 03/18/19 16:48 Last Admin: 03/14/19 16:49 Dose: 8.8 ml Documented by: Glucagon (Glucagen) 1 mg SQ UD PRN; Protocol PRN Reason: Hypoglycemia Protocol Stop: 04/13/19 15:57 Glucose (Glucose 40%) 15 - 30 gm PO UD PRN; Protocol PRN Reason: Hypoglycemia Protocol Stop: 04/13/19 15:57 Glucose (Dex4 Glucose) 4 - 8 tabs PO UD PRN; Protocol PRN Reason: Hypoglycemia Protocol Stop: 04/13/19 15:57 Heparin Sodium (Porcine) (Heparin Sodium (Porcine)) 5,000 units SQ Q8 [facility] Stop: 04/16/19 21:59 Last Admin: 03/18/19 14:16 Dose: Not Given Documented by: Hydromorphone HCl (Dilaudid) 0.5 mg IV Q8H PRN PRN Reason: Severe Pain Stop: 03/28/19 15:55 Last Admin: 03/16/19 23:24 Dose: 0.5 mg Documented by: Piperacillin Sod/Tazobactam (Sod 3.375 gm/ Dextrose) 115 mls @ 28.75 mls/hr IV Q8H [facility]; Protocol Stop: 03/25/19 15:59 Last Admin: 03/18/19 14:13 Dose: 28 mls/hr Documented by: Sodium Chloride (Nss 1000ml) 1,000 mls @ 125 mls/hr IV .Q8H [facility] Stop: 04/16/19 07:59 Last Admin: 03/18/19 08:03 Dose: 125 mls/hr Documented by: Insulin Aspart (Novolog Flexpen) 0 units SC ACHS [facility] Stop: 04/13/19 20:59 Last Admin: 03/18/19 12:45 Dose: 8 units Documented by: Insulin Glargine (Lantus Solostar Pen) 15 units SC BID [facility] Stop: 04/13/19 20:59 Last Admin: 03/18/19 08:48 Dose: 15 units Documented by: Miscellaneous (Carbohydrates For Hypoglycemia) 15 - 30 gm PO UD PRN PRN Reason: Hypoglycemia Protocol Stop: 04/13/19 15:57 Miscellaneous Information (Consult) 1 ea N/A UD PRN PRN Reason: Consult Stop: 04/14/19 00:30 Ondansetron HCl (Zofran) 4 mg IV Q6H PRN PRN Reason: Nausea Stop: 04/13/19 16:03 Oxycodone HCl (Roxicodone Immediate Rel) 5 - 10 mg PO Q6H PRN PRN Reason: pain Stop: 03/30/19 18:44 Last Admin: 03/18/19 12:44 Dose: 8 mg Documented by: Polyethylene Glycol (Miralax Powder Packet) 17 gm PO DAILY PRN PRN Reason: Constipation Stop: 04/17/19 01:52 Senna/Docusate Sodium (Senokot S) 1 tab PO BID [facility] Stop: 04/17/19 01:54 Last Admin: 03/18/19 08:02 Dose: 1 tab Documented by: Sennosides (Senokot) 17.2 mg PO HS [facility] Stop: 04/14/19 20:59 Last Admin: 03/17/19 20:37 Dose: 17.2 mg Documented by:
--- NOTE | 2019-03-18 17:46 | Wound Progress Note ---
Date of Service March 18, 2019 Assessment & Plan (1) Osteomyelitis of right foot: No debridement required. Continue IV antibiotics. Continue to dress wound with aquacel ag. Await surgical input. Will continue to follow. Subjective Patient seen laying in bed with at bedside. Receiving IV antibiotics. No new complaints. Review of Systems Review of Systems: All systems reviewed & are unremarkable except as noted in HPI & below Physical Exam Skin: Wound stable. Still with periwound erythema Neurologic: awake; not confused Psychiatric: A+Ox3, euthymic affect Results & Data Vital Signs (Past 12 Hours) Vital Signs Temp Pulse Resp BP Pulse Ox 03/18/19 15:44 37.1 C 71 16 145/79 H 95 03/18/19 11:43 37 C 69 18 143/71 H 94 03/18/19 07:13 36.9 C 69 18 129/72 95 PG Care Time/CCT Total # of Minutes Spent Total Time Spent with Patient: Total time spent is greater than 50% in coordination of care (as documented) at patient's floor/unit and/or counseling patient:
[2019-03-18] MEDS: SENNA 8.6 MG TAB PO SCH (20:44)
[2019-03-19] MEDS: SODIUM CHLORIDE 0.9% 1000ML 1,000 ML IV SCH ×2 (01:06→08:34)
[2019-03-19] MEDS: PIPERACILLIN/TAZOBACTAM 3.375 GM in DEXTROSE 5% 100 ML IV SCH ×3 (06:06→21:24)
[2019-03-19] MEDS: HEPARIN SOD 5,000 UNIT/0.5 ML VIAL SQ SCH ×3 (06:08→20:14)
[2019-03-19] MEDS: OXYCODONE HCL IR 5 MG TAB (IMMEDIATE RELEASE) PO PRN ×3 (06:14→21:01)
[2019-03-19 06:46] LABS: Creatinine Clr Calc Pharmacy 53.9 ml/min; Est GFR (African American) 52.9; Est GFR (Non-African American) 45.6
[2019-03-19] MEDS: INSULIN ASPART 100 UNITS/ML 3 ML PEN SC SCH ×4 (08:35→20:46)
[2019-03-19] MEDS: INSULIN GLARGINE SOLOSTAR 100 UNITS/ML 3 ML PEN SC SCH ×2 (08:36→20:47)
[2019-03-19] MEDS: DOCUSATE SODIUM/SENNA 50/8.6MG TAB PO SCH ×2 (08:37→20:13)
--- NOTE | 2019-03-19 15:35 | Hospitalist Progress Note ---
Date of Service March 19, 2019 Assessment & Plan (1) Osteomyelitis of right foot: Has osteomyelitis of fourth toe of right foot. MRI proven involving the proximal and middle phalanges with adjoining spreading cellulitis Was on intravenous vanc and Zosyn, ID/ortho/wound care consults. Aquacel covering wound. Appreciate orthopedic input and recommendation Not for any surgical procedure Appreciate ID input and recommendation-will need 4 to 6 weeks of intravenous antibiotic Wound culture grew gram-negative bacilli and Staphylococcus aureus which is pansensitive Vancomycin has been discontinued Will get ID recommendation about ongoing antibiotic Still awaiting the full culture and sensitivity report, gram-negative bacilli sensitivities pending PICC line has been ordered Likely discharge tomorrow following recommendation of antibiotic (2) Toe ulcer, right: Diabetic foot ulceration with underlying osteo, Aquacel to wound which is not currently draining. Daily wound care. Plan as above. Conservative management for now (3) Acute on chronic kidney failure: Etiologies include but not limited to prerenal azotemia from infection, nephrotoxic effects from Vanc/Zosyn combination. Urine studies. Continuing current antibiotics based on culture results and ID recommendations. Started IVF for today and trend BMP in am. Creatinine has been improving (4) Peripheral vascular disease: -patient has not been taking aspirin at home -hold aspirin for now until deciding whether toe ulcer debridement needed -We will restart aspirin (5) Uncontrolled diabetes mellitus: A1C 9.6. Diabetic nurse to see patient for additional education. Basal bolus insulin while hospitalized for tighter control in setting of d iabetic foot wound. Glucose is controlled. Pt came in on NPH, however, insurance coverage has changed and he prefers to use the Lantus/Novolog combination from the hospital at time of discharge. 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 (7) DVT prophylaxis: Lovenox Full Code Dispo-cont hospitalization pending ortho recommendations. Subjective 03/18 The patient was seen and examined in medical telemetry unit He has type 2 diabetes with peripheral vascular disease and was admitted with right toe osteomyelitis He complains to have some pain in the right foot and adjoining redness with tenderness Denies any fever and/or chills Denies any other symptoms 03/19 The patient was seen and examined in medical telemetry unit He complains to have minimal pain in right foot Denies any other symptoms Spreading cellulitis in the right foot has been improving Review of Systems Review of Systems: All systems reviewed and are unremarkable except as noted below Musculoskeletal: Pain in the right foot with adjoining redness and tenderness involving the lateral half of right foot. Right foot toe is gangrenous which is dry Physical Exam Constitutional: well developed and well nourished; no acute distress and not ill appearing Eyes: PERRL, conjunctivae normal, anicteric sclerae ENMT: external ear and nose normal, oropharynx normal Neck: trachea midline, no thyromegaly Respiratory: normal respiratory effort; no respiratory distress Auscultation: lungs clear to auscultation bilaterally Cardiovascular: Rate/Rhythm: regular rate and regular rhythm Heart Sounds: no murmur Vessels: dorsalis pedis pulses present (Not palpable) Extremities: + pedal edema (More on the right side and involving the right foot and adjoining area) Gastrointestinal (Abdomen): Inspection/Auscultation: abdomen normal to inspection and normal bowel sounds Percussion/Palpation: abdomen soft Skin: Redness involving the right lateral foot has been improving with decreasing local temperature and edema and tenderness Results & Data Vital Signs (Past 12 Hours) Vital Signs Temp Pulse Pulse Resp BP Pulse Ox 03/19/19 15:11 36.8 C 64 19 151/81 H 95 03/19/19 12:02 36.9 C 61 20 127/69 95 03/19/19 10:20 72 03/19/19 07:28 37.0 C 71 18 135/74 94 03/19/19 04:09 37.1 C 71 17 146/71 H 95 Laboratory Results [facility] 03/19/19 05:40 Creatinine 1.56 H Medications Administered Current Inpatient Medications Acetaminophen (Tylenol) 325 mg PO Q6H PRN PRN Reason: Pain or Fever Stop: 04/13/19 15:55 Last Admin: 03/18/19 16:52 Dose: 325 mg Documented by: Dextrose (Dextrose 50%) 25 - 50 ml IV UD PRN; Protocol PRN Reason: Hypoglycemia Protocol Stop: 04/13/19 15:57 Glucagon (Glucagen) 1 mg SQ UD PRN; Protocol PRN Reason: Hypoglycemia Protocol Stop: 04/13/19 15:57 Glucose (Glucose 40%) 15 - 30 gm PO UD PRN; Protocol PRN Reason: Hypoglycemia Protocol Stop: 04/13/19 15:57 Glucose (Dex4 Glucose) 4 - 8 tabs PO UD PRN; Protocol PRN Reason: Hypoglycemia Protocol Stop: 04/13/19 15:57 Heparin Sodium (Porcine) (Heparin Sodium (Porcine)) 5,000 units SQ Q8 [facility] Stop: 04/16/19 21:59 Last Admin: 03/19/19 08:35 Dose: Not Given Documented by: Hydromorphone HCl (Dilaudid) 0.5 mg IV Q8H PRN PRN Reason: Severe Pain Stop: 03/28/19 15:55 Last Admin: 03/16/19 23:24 Dose: 0.5 mg Documented by: Piperacillin Sod/Tazobactam (Sod 3.375 gm/ Dextrose) 115 mls @ 28.75 mls/hr IV Q8H [facility]; Protocol Stop: 03/25/19 15:59 Last Admin: 03/19/19 14:42 Dose: 29 mls/hr Documented by: Insulin Aspart (Novolog Flexpen) 0 units SC ACHS [facility] Stop: 04/13/19 20:59 Last Admin: 03/19/19 12:56 Dose: 2 units Documented by: Insulin Glargine (Lantus Solostar Pen) 15 units SC BID [facility] Stop: 04/13/19 20:59 Last Admin: 03/19/19 08:36 Dose: 15 units Documented by: Miscellaneous (Carbohydrates For Hypoglycemia) 15 - 30 gm PO UD PRN PRN Reason: Hypoglycemia Protocol Stop: 04/13/19 15:57 Miscellaneous Information (Consult) 1 ea N/A UD PRN PRN Reason: Consult Stop: 04/14/19 00:30 Ondansetron HCl (Zofran) 4 mg IV Q6H PRN PRN Reason: Nausea Stop: 04/13/19 16:03 Oxycodone HCl (Roxicodone Immediate Rel) 5 - 10 mg PO Q6H PRN PRN Reason: pain Stop: 03/30/19 18:44 Last Admin: 03/19/19 14:43 Dose: 10 mg Documented by: Polyethylene Glycol (Miralax Powder Packet) 17 gm PO DAILY PRN PRN Reason: Constipation Stop: 04/17/19 01:52 Last Admin: 03/19/19 08:40 Dose: 17 gm Documented by: Senna/Docusate Sodium (Senokot S) 1 tab PO BID [facility] Stop: 04/17/19 01:54 Last Admin: 03/19/19 08:37 Dose: 1 tab Documented by: Sennosides (Senokot) 17.2 mg PO [facility] Stop: 04/14/19 20:59 Last Admin: 03/18/19 20:44 Dose: 17.2 mg Documented by:
[2019-03-19] MEDS: HYDROmorphone INJ 0.5 MG/0.5 ML SYR IV PRN (18:51)
--- NOTE | 2019-03-19 19:27 | XRay Report ---
XR chest 1V portable CLINICAL HISTORY: 68 years-old Male presenting with PICC line placement. TECHNIQUE: Portable upright AP view of the chest was obtained. COMPARISON: 08/20/2018. FINDINGS: Cardiac silhouette borderline enlarged. Mild elevation the right hemidiaphragm as on prior. The right upper extremity PICC courses superiorly within the right internal jugular vein, terminus not visuali zed. Minimal basilar opacities. No pleural effusion or pneumothorax. Osseous structures normal. Upper abdomen normal. IMPRESSION: 1. An appropriately positioned right upper extremity PICC with the catheter coursing superiorly in t he right internal jugular vein; terminus not visualized. Repositioning is required. The report will be called/faxed according to standard departmental protocol. Electronically signed by: Ayo Luis M.D. 03/19/2019 7:26 PM
[2019-03-19] MEDS: SENNA 8.6 MG TAB PO SCH (20:13)
[2019-03-19] MEDS: ACETAMINOPHEN 325 MG TAB PO PRN (23:55)
[2019-03-20] MEDS: HEPARIN SOD 5,000 UNIT/0.5 ML VIAL SQ SCH ×2 (05:16→08:10)
[2019-03-20] MEDS: PIPERACILLIN/TAZOBACTAM 3.375 GM in DEXTROSE 5% 100 ML IV SCH (05:16)
[2019-03-20] MEDS: OXYCODONE HCL IR 5 MG TAB (IMMEDIATE RELEASE) PO PRN ×2 (05:16→12:45)
[2019-03-20 06:15] LABS: Basophils # (auto) 0.02 K/uL (0-0.2); Basophils % (auto) 0.3 %; Eosinophils # (auto) 0.24 K/uL (0-0.5); Eosinophils % (auto) 4.1 %; Hemoglobin 11.5 g/dL (14.0-18.0); Immature Granulocytes # (auto) 0.01 K/uL (0.00-0.02); Immature Granulocytes % (auto) 0.2 %; Lymphocytes # (auto) 1.18 K/uL (1.2-3.4); Lymphocytes % (auto) 19.9 %; Mean Corpuscular Hgb Conc 33.8 g/dL (32-36); Mean Corpuscular Volume 85.6 fL (80-100); Monocytes # (auto) 0.71 K/uL (0.11-0.59); Neutrophils # (auto) 3.76 K/uL (1.4-6.5); Neutrophils % (auto) 63.5 %; Platelet Count 223 K/uL (130-400); RDW Coefficient of Variation 12.4 % (11.5-14.5); RDW Standard Deviation 39.2 fL (36.4-46.3); Red Blood Count 3.97 M/uL (4.7-6.1); White Blood Count 5.92 K/uL (4.8-10.8)
[2019-03-20 06:46] LABS: Calcium 9.2 mg/dl (8.5-10.1); Creatinine Clr Calc Pharmacy 46.9 ml/min; Est GFR (African American) 49.4; Est GFR (Non-African American) 42.6; Potassium 3.7 mmol/L (3.5-5.1)
[2019-03-20] MEDS: DOCUSATE SODIUM/SENNA 50/8.6MG TAB PO SCH (08:14)
[2019-03-20] MEDS: INSULIN GLARGINE SOLOSTAR 100 UNITS/ML 3 ML PEN SC SCH (08:14)
[2019-03-20] MEDS: INSULIN ASPART 100 UNITS/ML 3 ML PEN SC SCH ×2 (08:14→12:38)
[2019-03-20] MEDS ORDERED: cefTRIAXone SODIUM 2,000 MG in DEXTROSE 5% 50 ML IV SCH (13:15)
--- NOTE | 2019-03-20 14:13 | Hospitalist Progress Note ---
Date of Service March 20, 2019 Assessment & Plan (1) Osteomyelitis of right foot: Has osteomyelitis of fourth toe of right foot. MRI proven involving the proximal and middle phalanges with adjoining spreading cellulitis Was on intravenous vanc and Zosyn, ID/ortho/wound care consults. Aquacel covering wound. Appreciate orthopedic input and recommendation Not for any surgical procedure Appreciate ID input and recommendation-will need 4 to 6 weeks of intravenous antibiotic Wound culture grew button pusher spaces and a Staphylococcus aureus-sensitivity report is in file Vancomycin has been discontinued Will get ID recommendation about ongoing antibiotic PICC line has been placed Full sensitivity report has been noted Discussed with ID and the patient will need intravenous ceftriaxone 2 g daily for a total of 6 weeks from the beginning of antibiotic Will start ceftriaxone from today and prescription has been given to the social service Social service has been working on discharge likely tomorrow or day after (2) Toe ulcer, right: Diabetic foot ulceration with underlying osteo, Aquacel to wound which is not currently draining. Daily wound care. Plan as above. Conservative management for now The redness, tenderness and swelling involving the right fourth toe have improved a lot (3) Acute on chronic kidney failure: Etiologies include but not limited to prerenal azotemia from infection, nephrotoxic effects from Vanc/Zosyn combination. Urine studies. Continuing current antibiotics based on culture results and ID recommendations. Started IVF for today and trend BMP in am. Creatinine has been up on admission and remains stable stable at the 1.65 as of 03/20 (4) Peripheral vascular disease: -patient has not been taking aspirin at home -hold aspirin for now until deciding whether toe ulcer debridement needed -We will restart aspirin (5) Uncontrolled diabetes mellitus: A1C 9.6. Diabetic nurse to see patient for additional education. Basal bolus insulin while hospitalized for tighter control in setting of diabetic foot wound. Glucose is controlled. Pt came in on NPH, however, insurance coverage has changed and he prefers to use the Lantus/Novolog combination from the hospital at time of discharge. 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 (7) DVT prophylaxis: Lovenox Full Code Dispo-cont hospitalization pending ortho recommendations. Subjective 03/18 The patient was seen and examined in medical telemetry unit He has type 2 diabetes with peripheral vascular disease and was admitted with right toe osteomyelitis He complains to have some pain in the right foot and adjoining redness with tenderness Denies any fever and/or chills Denies any other symptoms 03/19 The patient was seen and examined in medical telemetry unit He complains to have minimal pain in right foot Denies any other symptoms Spreading cellulitis in the right foot has been improving 03/20 The patient was seen and examined in medical telemetry unit He has had some nausea and vomited once this morning He denies any other symptoms Right leg pain, swelling, redness and tenderness have been improving Review of Systems Review of Systems: All systems reviewed and are unremarkable except as noted below Musculoskeletal: Pain in the right foot with adjoining redness and tenderness involving the lateral half of right foot. Right foot toe is gangrenous which is dry Physical Exam Physical Exam: Lying in bed comfortably Constitutional: well developed and well nourished; no acute distress and not ill appearing Eyes: PERRL, conjunctivae normal, anicteric sclerae ENMT: external ear and nose normal, oropharynx normal Neck: trachea midline, no thyromegaly Respiratory: normal respiratory effort; no respiratory distress Auscultation: lungs clear to auscultation bilaterally Cardiovascular: Rate/Rhythm: regular rate and regular rhythm Heart Sounds: no murmur Vessels: dorsalis pedis pulses present (Not palpable) Gastrointestinal (Abdomen): Inspection/Auscultation: abdomen normal to inspection and normal bowel sounds Percussion/Palpation: abdomen soft Musculoskeletal: Ankle: + skin erythema (Involving the lateral half of right foot has been improving) Results & Data Vital Signs (Past 12 Hours) Vital Signs Temp Pulse Resp BP Pulse Ox 03/20/19 10:37 36.6 C 71 18 117/63 95 03/20/19 04:00 36.9 C 64 18 133/72 91 Laboratory Results Short CBC 03/20/19 Range/Units 05:22 WBC 5.92 (4.8-10.8) K/uL Hgb 11.5 L (14.0-18.0) g/dL Hct 34.0 L (42-52) % Plt Count 223 (130-400) K/uL BMP 03/20/19 05:22 Sodium 136 Potassium 3.7 Chloride 103 Carbon Dioxide 28 BUN 30 H Creatinine 1.65 H Glucose 141 H Calcium 9.2 Medications Administered Current Inpatient Medications Acetaminophen (Tylenol) 325 mg PO Q6H PRN PRN Reason: Pain or Fever Stop: 04/13/19 15:55 Last Admin: 03/19/19 23:55 Dose: 325 mg Documented by: Dextrose (Dextrose 50%) 25 - 50 ml IV UD PRN; Protocol PRN Reason: Hypoglycemia Protocol Stop: 04/13/19 15:57 Glucagon (Glucagen) 1 mg SQ UD PRN; Protocol PRN Reason: Hypoglycemia Protocol Stop: 04/13/19 15:57 Glucose (Glucose 40%) 15 - 30 gm PO UD PRN; Protocol PRN Reason: Hypoglycemia Protocol Stop: 04/13/19 15:57 Glucose (Dex4 Glucose) 4 - 8 tabs PO UD PRN; Protocol PRN Reason: Hypoglycemia Protocol Stop: 04/13/19 15:57 Heparin Sodium (Porcine) (Heparin Sodium (Porcine)) 5,000 units SQ Q8 PORFIRIO Stop: 04/16/19 21:59 Last Admin: 03/20/19 08:10 Dose: Not Given Documented by: Hydromorphone HCl (Dilaudid) 0.5 mg IV Q8H PRN PRN Reason: Severe Pain Stop: 03/28/19 15:55 Last Admin: 03/19/19 18:51 Dose: 0.5 mg Documented by: Ceftriaxone Sodium 2,000 mg/ (Dextrose) 70 mls @ 100 mls/hr IV DAILY PORFIRIO; Protocol Stop: 05/01/19 13:14 Insulin Aspart (Novolog Flexpen) 0 units SC ACHS PORFIRIO Stop: 04/13/19 20:59 Last Admin: 03/20/19 12:38 Dose: 7 units Documented by: Insulin Glargine (Lantus Solostar Pen) 15 units SC BID PORFIRIO Stop: 04/13/19 20:59 Last Admin: 03/20/19 08:14 Dose: 15 units Documented by: Miscellaneous (Carbohydrates For Hypoglycemia) 15 - 30 gm PO UD PRN PRN Reason: Hypoglycemia Protocol Stop: 04/13/19 15:57 Ondansetron HCl (Zofran) 4 mg IV Q6H PRN PRN Reason: Nausea Stop: 04/13/19 16:03 Last Admin: 03/20/19 08:20 Dose: 4 mg Documented by: Oxycodone HCl (Roxicodone Immediate Rel) 5 - 10 mg PO Q6H PRN PRN Reason: pain Stop: 03/30/19 18:44 Last Admin: 03/20/19 12:45 Dose: 10 mg Documented by: Polyethylene Glycol (Miralax Powder Packet) 17 gm PO DAILY PRN PRN Reason: Constipation Stop: 04/17/19 01:52 Last Admin: 03/19/19 08:40 Dose: 17 gm Documented by: Senna/Docusate Sodium (Senokot S) 1 tab PO BID PORFIRIO Stop: 04/17/19 01:54 Last Admin: 03/20/19 08:14 Dose: 1 tab Documented by: Sennosides (Senokot) 17.2 mg PO HS PORFIRIO Stop: 04/14/19 20:59 Last Admin: 03/19/19 20:13 Dose: 17.2 mg Documented by:
[2019-03-20] MEDS ORDERED: ASPIRIN 81 MG ECTAB PO SCH (14:30)
--- NOTE | 2019-03-20 15:28 | Orthopedic Progress Note ---
Date of Service March 20, 2019 Assessment & Plan (1) Osteomyelitis of right foot: Osteomyelitis proximal phalanx middle phalanx 4th toe per MRI with no definable abscess. Currently not draining. Current appearance appears to be more vascular and Doppler studies demonstrate adequate blood supply and patient does have posterior tibial occlusion but may have small vessel disease related to diabetes. Necrotic area does not need to be debrided at this time. Recommend continue with IV antibiotics and monitor circulation of the toe and allow any further demarcation of necrosis. Aquacel dressing changes daily. F/U as outpatient. Avoid any thick dressing between the fourth and fifth toe to mitigate any undue pressure that would cause more pressure type necrosis. Thank you for the consultation Brigido Hopkins DO Subjective Patient seen while laying in bed with at bedside. Watching football game. Receiving IV antibiotics. No new complaints. Physical Exam Physical Exam: Stable ulcer approx 9mm in diameter lateral aspect 4th toe. No exposed bone or deep tissues. Mild to moderate fusiform swelling 4th toe. Local erythema. No foul odor. Aquacel dressing removed. Scant drainage on dressing. Limited sensation bilateral feet/ stocking distribution. Minimal pulses palpated B feet. Feet are warm with scant hair growth bilaterally. Results & Data Vital Signs (Past 12 Hours) Vital Signs Temp Pulse Resp BP Pulse Ox 03/20/19 10:37 36.6 C 71 18 117/63 95 03/20/19 04:00 36.9 C 64 18 133/72 91
--- NOTE | 2019-03-22 10:35 | Discharge Summary ---
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 Patient since has been following up with wound care. However, he has developed opened ulcer of lateral side of the fourth toe that appears to be exposed to the bone. Patient has been recently on oral antibiotics for 3 weeks. He presents to the emergency room on 03/14/19 and on X ray imaging impression "Erosive change is suggested along the lateral aspect of the fourth proximal and middle phalanges around the interphalangeal joint as above. Osteomyelitis is not excluded." As per patient and his fiancee Misa [phone] at the bedside, there has been drainage from the ulcer. Patient also reports his Hemoglobin A1c has been above 10 in the past and that even with his Novolin 70/30 that he takes 26 units BID, his sugars can be in the 200s to 250s. He reports that he had better glucose control when he in the hospital and previous physical rehabilitation stay when he was on an alternative insulin but his insurance covers the less effective one which he has been taking. Patient denies taking aspirin currently. He has some pain of the affect toe with ulcer. Patient's fiancee also reports that patient has history of Mahan-Parkinson White Syndrome. Patient denies fevers at home. denies shortness of breath. denies palpitations. denies headache or dizziness. denies abdominal pain. denies vomiting. denies history of gastric reflux Family history: patient denies known family history because he is adopted Allergies: patient recalls some allergy 20 years ago to a cardiac medication but cannot recall the side effects or name of the medication Primary Care Provider: Jonas King MD Admission Exam Per Admitting Provider Constitutional: WD/WN, vitals as above Eyes: PERRL, conjunctivae normal, anicteric sclerae EOM intact bilaterally ENMT: external ear and nose normal, oropharynx normal Neck: normal visual inspection Respiratory: normal respiratory effort, lungs clear to auscultation Cardiovascular: Rate/Rhythm: regular rate and regular rhythm Gastrointestinal (Abdomen): normal bowel sounds, soft, nontender, no hepatosplenomegaly Musculoskeletal: lateral to fourth toe is ulcer that appears to go to the bone Neurologic: PERRL, EOMI, accommodation nl, no face palsy, no dysarthria CN's II-XI intact bilaterally Psychiatric: A+Ox3, euthymic affect Principal Diagnosis Osteomyelitis of fourth toe of right foot with adjoining cellulitis, diabetic foot ulcer, peripheral vascular disease, uncontrolled diabetes Discharge Exam Constitutional well developed and well nourished; no acute distress and not ill appearing Eyes PERRL, conjunctivae normal, anicteric sclerae ENMT external ear and nose normal, oropharynx normal Neck trachea midline, no thyromegaly Respiratory normal respiratory effort; no respiratory distress Auscultation: lungs clear to auscultation bilaterally Cardiovascular Rate/Rhythm: regular rate and regular rhythm Heart Sounds: no murmur Vessels: dorsalis pedis pulses present (Not palpable) Extremities: + pedal edema (More on the right side and involving the right foot and adjoining area) Gastrointestinal (Abdomen) Inspection/Auscultation: abdomen normal to inspection and normal bowel sounds Percussion/Palpation: abdomen soft Musculoskeletal Ankle: + skin erythema (Involving the lateral half of right foot has been improving) Discharge Data Allergies Allergy/AdvReac Type Severity Reaction Status Date / Time sympathomimetics AdvReac Severe Chest Pain Uncoded 03/14/19 13:34 Consultations 03/14/19 15:15 ED Decision to Admit Stat 03/14/19 16:07 Consult Wound Care Provider Routine 03/14/19 16:40 Consult Case Management - Discharge Planning Routine 03/15/19 07:58 Consult Orthopedic Surgery Routine 03/15/19 08:00 Consult Infectious Diseases Routine 03/16/19 10:35 Consult Vascular Surgery Routine Ordered Studies 03/14/19 16:02 MR foot RT wo/w con Routine Hospital Course (1) Osteomyelitis of right foot: Has osteomyelitis of fourth toe of right foot. MRI proven involving the proximal and middle phalanges with adjoining spreading cellulitis Was on intravenous vanc and Zosyn, ID/ortho/wound care consults. Aquacel covering wound. Appreciate orthopedic input and recommendation Not for any surgical procedure Appreciate ID input and recommendation-will need 4 to 6 weeks of intravenous antibiotic Wound culture grew named account executive spaces and a Staphylococcus aureus-sensitivity report is in file Vancomycin has been discontinued Will get ID recommendation about ongoing antibiotic PICC line has been placed Full sensitivity report has been noted Discussed with ID and the patient will need intravenous ceftriaxone 2 g daily for a total of 6 weeks from the beginning of antibiotic Will start ceftriaxone from today and prescription has been given to the social service Social service has been working on discharge likely tomorrow or day after (2) Toe ulcer, right: Diabetic foot ulceration with underlying osteo, Aquacel to wound which is not currently draining. Daily wound care. Plan as above. Conservative management for now The redness, tenderness and swelling involving the right fourth toe have improved a lot (3) Acute on chronic kidney failure: Etiologies include but not limited to prerenal azotemia from infection, nephrotoxic effects from Vanc/Zosyn combination. Urine studies. Continuing current antibiotics based on culture results and ID recommendations. Started IVF for today and trend BMP in am. Creatinine has been up on admission and remains stable stable at the 1.65 as of 03/20 (4) Peripheral vascular disease: -patient has not been taking aspirin at home -hold aspirin for now until deciding whether toe ulcer debridement needed -We will restart aspirin (5) Uncontrolled diabetes mellitus: A1C 9.6. Diabetic nurse to see patient for additional education. Basal bolus insulin while hospitalized for tighter control in setting of diabetic foot wound. Glucose is controlled. Pt came in on NPH, however, insurance coverage has changed and he prefers to use the Lantus/Novolog combination from the hospital at time of discharge. 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 (7) DVT prophylaxis: Lovenox Full Code Dispo-cont hospitalization pending ortho recommendations. Total Time Total Time Spent Total Time Spent (In Minutes): 40 minutes Total Time Includes: Examination of the Patient, Discharge Planning, Medication Reconciliation and Communication With Other Providers Discharge Plan Discharge Items Patient Disposition: Home - Home Health Services Reason For Visit: TOE ULCER, SUSPECTED OSTEOMYELITIS Discharge Diagnosis: Osteomyelitis of fourth toe of right foot with adjoining cellulitis, diabetic foot ulcer, peripheral vascular disease, uncontrolled diabetes Condition on Discharge: Good Activity: Resume your previous activity Non-emergency contact: Primary Care Provider Call non-emergency contact if: you have any medication questions and your symptoms worsen Follow-up/Referrals: Jonas King MD [Primary Care Provider] - (Please make an appointment with your primary care provider within 1 week.) Diet: Carb Consistent or DM2 Addtl Attending Provider Instructions: Please take precaution to avoid falls Instructions for insulin administration; Lantus dose titration 11/915 units in p.m. 03/1020 units in a.m. and 10 units in p.m. 03/1125 units in a.m. and 5 units in p.m. 03/1230 units every morning Pending Studies at Discharge: No Stand-Alone Forms: My [facility], Smoking Cessation Medications and DC Order Prescriptions: New Novolog Flexpen U-100 Insulin 100 unit/mL (3 mL) Insulin Pen 5 units SC TIDM 30 Days Qty: 1 RF: 0 Lantus Solostar U-100 Insulin 100 unit/mL (3 mL) Insulin Pen 30 unit SC QAM 30 Days Qty: 1 RF: 0 ceftriaxone 2 gram recon soln 2 gm IV DAILY Qty: 35 RF: 0 Continued aspirin [Aspir-81] 81 mg Tablet,Delayed Release (Dr/Ec) 81 mg PO DAILY RF: 0 ondansetron 4 mg tablet,disintegrating 4 mg PO Q6H PRN (Reason: nausea and vomiting) Qty: 10 RF: 0 Discontinued cephalexin [Keflex] 500 mg capsule 500 mg PO BID Qty: 60 RF: 0 ibuprofen 200 mg Tablet 600 mg PO TID PRN (Reason: Pain) RF: 0 Novolin 70/30 U-100 Insulin 100 unit/mL (70-30) Suspension 26 unit SUBCUT AMPM RF: 0 Discharge Orders: Discharge Order (Routine); Ordered 03/20/19 Ordered By: Dean Alvarenga Admission Data Admit Date/Time: 03/14/19 16:09 Attending Provider: Dean Alvarenga Admit Provider: Herminio Jennings Primary Care Provider: Jonas King I. Other Providers: Herminio Jennings ; Espinoza Brown Michelle M. ; Saeed Denton ; Antonella Juárez Jason L. ; Brigido Hopkins ; Quita Inman ; Shree Roman ; Barbara Durbin Other Interventions: Discharge Summary Assessment (RN) Last Done: 03/20/19 16:27 DC Date/Time DO NOT enter until pt leaves facility: 03/20/19 17:05
--- NOTE | 2019-03-24 12:56 | Coding Query ---
CODING QUERY FOR UNCONTROLLED DIABETES To promote full compliance with coding requirements relating to patient care, provider participation is requested in all cases of motor grader rough grade uncertainty. Please assist us with the question(s) below: Coding Question: The term uncontrolled Diabetes was used throughout the record. To be able to code this diagnosis properly, could you please clarify the diagnosis below: ( ) Uncontrolled Diabetes meaning hypoglycemia ( + ) Uncontrolled Diabetes meaning hyperglycemia ( ) Other (please specify) Principal Diagnosis: "that condition established after study, to be chiefly responsible for occasioning the admission of the patient to the hospital for care." Co-Existing Principal Diagnosis: "when two or more diagnoses equally meet the criteria for principal diagnosis as determined by the circumstances of admission, diagnostic work up, and/or therapy provided, and the Alphabetic Index, Tabular List, or another coding guideline does not provide sequencing direction, any one of the diagnoses may be sequenced first." "When the physician has documented what appears to be a current diagnosis in the body of the record, but has not included the diagnosis in the final diagnostic statement, the physician should be asked whether the diagnosis should be added." (Source Coding [facility] 2 QTR90. p3-4) TIFFANY
== END 2019-03-20 17:05 | disposition home health service (06) | DRG 638 ==
LOC: ED 12:25 → SUATTDRO 16:09 → 2N 16:09

== ENCOUNTER 2021-03-02 15:53 | Inpatient (IN) ==
[2021-03-02] MEDS ORDERED: SODIUM CHLORIDE 0.9% 1000ML 1,000 ML IV ONE ×2 (16:38→17:23)
[2021-03-02] MEDS ORDERED: SODIUM CHLORIDE 0.9% 1000ML 1,000 ML IV SCH (16:45)
--- NOTE | 2021-03-02 16:47 | Emergency Department Note ---
Impression & Plan Acute hypoxemic respiratory failure, Sepsis, Pneumonia, HE (acute kidney injury), Hyperglycemia ED Provider Note NAME: PROSPER YODER AGE: 70 SEX: M : 1950 ARRIVES VIA: Walk-In INFORMANT: Patient, ED PROVIDER(S): Mynor Cruz MD Chief Complaint: Nausea vomiting, fatigue, shortness of breath, cough HPI: Patient does present due to these concerns which been ongoing insidious in onset about 3 days ago but have progressively worsened. The patient had 2 episodes of nonbloody nonbilious emesis today. The patient has been having productive rust colored sputum over the last 3 days. Patient is a non-smoker. Patient does have some left lower extremity leg pain in the calf. Describes this is achy nonradiating. No recent trauma. Patient denies any fevers or chills. The patient denies any prior history of DVT or PE. The patient does have a prior history of bypass of the right lower extremity which is chronically larger than the other. Patient did not take anything for symptoms at home. ROS: See HPI for pertinent positives and negatives. A total of 10 systems were reviewed and otherwise negative. Past medical history: See below Surgical history: See below Social history: See below Physical Exam: GENERAL: Ill in appearance, fatigued, NAD, [wearing a mask,] nasal cannula in place. EYE EXAM: Normal conjunctiva. PERRL, no anisocoria and EOM's grossly intact w/o pain. NECK: Supple, no nuchal rigidity, no adenopathy, non-tender. No signs of meningismus. LUNGS: Clear to auscultation. Normal chest wall mechanics. HEART: NSR, no MRG. ABDOMEN: Abdomen soft, non-tender, normo-active bowel sounds, no masses, no rebound or guarding. BACK: No CVA TTP. SKIN: No rashes and no bruising. UPPER EXTREMITIES: Upper extremities are grossly normal. LOWER EXTREMITIES: Right greater than left lower extremity swelling without obvious pitting edema. NEURO EXAM: A&O x3, cranial nerves II-XII grossly intact, normal speech, moves all 4 extremities on command w/o issue. Differential diagnoses: Reactive airway disease, pneumonia, pneumothorax, COPD, CHF, infections, cardiac ischemia, pulmonary embolism, musculoskeletal, gastrointestinal, as well as other pathologies. Course: Patient was seen and evaluated the bedside. Full history physical exam was performed. EKG interpreted by me Was sinus rhythm, rate of 99, normal intervals, normal axis, Q-wave in lead III, no significant change from comparison EKG March 15, 2019. Imaging Studies: See Below Cardiac monitoring: An order was placed for continuous cardiac monitoring. The monitor shows a rate of 92 with sinus rhythm. MDM: Patient was seen due to concern for sepsis and hypoxic respiratory failure. Blood work did show white count of 17. The patient did have a drop in his blood pressures so additional IV fluids and IV line were placed. Lactate and blood cultures also obtained. Patient's Covid is negative. Cefepime was ordered along with MRSA swab. The patient does have likely left-sided pneumonia. Patient has HE with baseline creatinine 1.6 today is 2.2. Hyperglycemia noted but the patient has a normal anion gap and bicarb. Patient is not DKA. Magnesium slightly low 1.7. The patient has no prior history of DVT or PE. Ultrasound was obtained given the possible concern but believe this more likely to be infectious in etiology. CT angiography avoided given the patient's kidney dysfunction. Urinalysis does not show bacteria or nitrites. I did speak the on-call hospitalist and a АНДРЕЙ Moya and the patient was admitted by Dr. Gurrola. Critical Care: I have personally spent 78 minutes of critical care time in direct management of this patient. This includes bedside care, interpretation of diagnostic studies, and testing, discussion with consultants, patient, and family members, and other require inpatient management activities. This 78 minutes is in excess of all separately billable procedures. Past Med/Surg History Medical History (Updated 03/02/21 @ 19:14 by Mynor Cruz MD) Acquired bilateral foot deformity HE (acute kidney injury) Cellulitis of left lower extremity without foot Diabetes Diabetes mellitus with neuropathy Diabetic peripheral neuropathy Hallux abducto valgus, bilateral Hypertension Peripheral vascular disease Uncontrolled diabetes mellitus WPW syndrome Surgical History History of back surgery Social History Smoking Status: Never smoker Hx Alcohol Use: No Hx Substance Use: No Preferred Language: Khmer Communication Ability: Effective Inspector Packager Required: No Beliefs That Will Affect Care: None Current Living Situation: Spouse Feels Safe at Home: Yes Assistive Devices: Oxygen - Continuous Allergies Allergies Allergy/AdvReac Type Severity Reaction Status Date / Time sympathomimetics AdvReac Severe Chest Pain Uncoded 03/02/21 20:02 Home Meds Home Medications Medication Instructions Recorded Confirmed ibuprofen 200 mg tablet 400 mg PO Q6H PRN 03/02/21 03/02/21 insulin aspart U-100 100 unit/mL 8 unit SUBCUT TID 03/02/21 03/02/21 (3 mL) subcutaneous pen (Novolog Flexpen U-100 Insulin aspart) insulin degludec 100 unit/mL (3 34 unit SUBCUT DAILY 03/02/21 03/02/21 mL) subcutaneous pen (Tresiba FlexTouch U-100 insulin) metformin 500 mg tablet,extended 1,000 mg PO BIDM 03/02/21 03/02/21 release 24 hr semaglutide (Ozempic) 0.25 mg SUBCUT WK 03/02/21 03/02/21 Results & Data (ED) Vital Signs Vital Signs - 24 hr 03/02/21 15:55 03/02/21 16:21 03/02/21 16:39 Temperature 37 C Temperature Source Oral Pulse Rate 106 H 97 H 95 H Pulse Rate [Apical] 98 H Pulse Rate from SpO2 Sensor 95 H Pulse Rhythm Regular Pulse Rhythm [Apical] Regular Pulse Strength [Apical] Normal Respiratory Rate 16 28 H 30 H Respiratory Effort / Characteristics Non-Labored Non-Labored Respiratory Depth Normal Shallow Respiratory Pattern Regular Blood Pressure 106/66 Blood Pressure [Left Arm] 108/62 Blood Pressure Mean 79 Blood Pressure Mean [Left Arm] 77 Blood Pressure Position [Left Arm] Semi-fowlers Pulse Oximetry 92 89 L 96 Oxygen Delivery Method Room Air Room Air Oxygen Flow Rate Sepsis Recent Fever Within 48 Hours No Sepsis New/Unexplained Change in Mental Status No Sepsis Action Taken by Nursing No Action Required Oxygen Flow Rate - Titration Pulse Oximetry Post Tiitration 03/02/21 16:40 03/02/21 16:50 03/02/21 16:54 Temperature Temperature Source Pulse Rate 94 H 96 H Pulse Rate [Apical] Pulse Rate from SpO2 Sensor 94 H 95 H Pulse Rhythm Pulse Rhythm [Apical] Pulse Strength [Apical] Respiratory Rate 29 H 29 H Respiratory Effort / Characteristics Respiratory Depth Respiratory Pattern Blood Pressure Blood Pressure [Left Arm] Blood Pressure Mean Blood Pressure Mean [Left Arm] Blood Pressure Position [Left Arm] Pulse Oximetry 96 95 89 L Oxygen Delivery Method Nasal Cannula Oxygen Flow Rate 0 Sepsis Recent Fever Within 48 Hours Sepsis New/Unexplained Change in Mental Status Sepsis Action Taken by Nursing Oxygen Flow Rate - Titration 4 Pulse Oximetry Post Tiitration 94 03/02/21 16:59 03/02/21 17:00 03/02/21 17:10 Temperature Temperature Source Pulse Rate 94 H 96 H Pulse Rate [Apical] Pulse Rate from SpO2 Sensor 97 H Pulse Rhythm Pulse Rhythm [Apical] Pulse Strength [Apical] Respiratory Rate 28 H 31 H Respiratory Effort / Characteristics Respiratory Depth Respiratory Pattern Blood Pressure Blood Pressure [Left Arm] Blood Pressure Mean Blood Pressure Mean [Left Arm] Blood Pressure Position [Left Arm] Pulse Oximetry 96 96 Oxygen Delivery Method Nasal Cannula Nasal Cannula Oxygen Flow Rate 4 3 Sepsis Recent Fever Within 48 Hours Sepsis New/Unexplained Change in Mental Status Sepsis Action Taken by Nursing Oxygen Flow Rate - Titration 3 Pulse Oximetry Post Tiitration 94 03/02/21 17:20 03/02/21 17:30 03/02/21 17:40 Temperature Temperature Source Pulse Rate 98 H 102 H 102 H Pulse Rate [Apical] Pulse Rate from SpO2 Sensor 104 H 110 H Pulse Rhythm Pulse Rhythm [Apical] Pulse Strength [Apical] Respiratory Rate 28 H 24 23 Respiratory Effort / Characteristics Respiratory Depth Respiratory Pattern Blood Pressure 85/54 L 83/61 L 86/70 L Blood Pressure [Left Arm] Blood Pressure Mean 64 68 75 Blood Pressure Mean [Left Arm] Blood Pressure Position [Left Arm] Pulse Oximetry 94 Oxygen Delivery Method Nasal Cannula Nasal Cannula Nasal Cannula Oxygen Flow Rate 3 3 3 Sepsis Recent Fever Within 48 Hours Sepsis New/Unexplained Change in Mental Status Sepsis Action Taken by Nursing Oxygen Flow Rate - Titration Pulse Oximetry Post Tiitration 03/02/21 17:50 03/02/21 18:00 03/02/21 18:10 Temperature Temperature Source Pulse Rate 107 H 105 H 108 H Pulse Rate [Apical] Pulse Rate from SpO2 Sensor 106 H 105 H 108 H Pulse Rhythm Pulse Rhythm [Apical] Pulse Strength [Apical] Respiratory Rate 24 26 H 33 H Respiratory Effort / Characteristics Respiratory Depth Respiratory Pattern Blood Pressure 85/73 L 105/71 Blood Pressure [Left Arm] Blood Pressure Mean 77 82 Blood Pressure Mean [Left Arm] Blood Pressure Position [Left Arm] Pulse Oximetry 92 97 97 Oxygen Delivery Method Oxygen Flow Rate 3 3 3 Sepsis Recent Fever Within 48 Hours Sepsis New/Unexplained Change in Mental Status Sepsis Action Taken by Nursing Oxygen Flow Rate - Titration Pulse Oximetry Post Tiitration 03/02/21 18:20 03/02/21 18:30 03/02/21 18:40 Temperature Temperature Source Pulse Rate 104 H 108 H 107 H Pulse Rate [Apical] Pulse Rate from SpO2 Sensor 108 H Pulse Rhythm Pulse Rhythm [Apical] Pulse Strength [Apical] Respiratory Rate 29 H 36 H 32 H Respiratory Effort / Characteristics Respiratory Depth Respiratory Pattern Blood Pressure 90/64 L Blood Pressure [Left Arm] Blood Pressure Mean 72 Blood Pressure Mean [Left Arm] Blood Pressure Position [Left Arm] Pulse Oximetry 98 96 Oxygen Delivery Method Nasal Cannula Oxygen Flow Rate 3 3 Sepsis Recent Fever Within 48 Hours Sepsis New/Unexplained Change in Mental Status Sepsis Action Taken by Nursing Oxygen Flow Rate - Titration Pulse Oximetry Post Tiitration 03/02/21 18:50 03/02/21 19:00 03/02/21 19:10 Temperature Temperature Source Pulse Rate 102 H 102 H 104 H Pulse Rate [Apical] Pulse Rate from SpO2 Sensor 104 H Pulse Rhythm Pulse Rhythm [Apical] Pulse Strength [Apical] Respiratory Rate 33 H 32 H 32 H Respiratory Effort / Characteristics Respiratory Depth Respiratory Pattern Blood Pressure 93/63 L 102/58 L 83/56 L Blood Pressure [Left Arm] Blood Pressure Mean 73 72 65 Blood Pressure Mean [Left Arm] Blood Pressure Position [Left Arm] Pulse Oximetry 98 Oxygen Delivery Method Nasal Cannula Oxygen Flow Rate 3 Sepsis Recent Fever Within 48 Hours Sepsis New/Unexplained Change in Mental Status Sepsis Action Taken by Nursing Oxygen Flow Rate - Titration Pulse Oximetry Post Tiitration 03/02/21 19:20 03/02/21 19:30 03/02/21 19:40 Temperature Temperature Source Pulse Rate 98 H 102 H 101 H Pulse Rate [Apical] Pulse Rate from SpO2 Sensor 99 H 103 H 102 H Pulse Rhythm Pulse Rhythm [Apical] Pulse Strength [Apical] Respiratory Rate 34 H 32 H 33 H Respiratory Effort / Characteristics Respiratory Depth Respiratory Pattern Blood Pressure 89/58 L 94/65 L 95/64 L Blood Pressure [Left Arm] Blood Pressure Mean 68 74 74 Blood Pressure Mean [Left Arm] Blood Pressure Position [Left Arm] Pulse Oximetry 91 96 95 Oxygen Delivery Method Oxygen Flow Rate 3 3 3 Sepsis Recent Fever Within 48 Hours Sepsis New/Unexplained Change in Mental Status Sepsis Action Taken by Nursing Oxygen Flow Rate - Titration Pulse Oximetry Post Tiitration 03/02/21 19:50 Temperature Temperature Source Pulse Rate 104 H Pulse Rate [Apical] Pulse Rate from SpO2 Sensor 112 H Pulse Rhythm Pulse Rhythm [Apical] Pulse Strength [Apical] Respiratory Rate 32 H Respiratory Effort / Characteristics Respiratory Depth Respiratory Pattern Blood Pressure 91/70 L Blood Pressure [Left Arm] Blood Pressure Mean 77 Blood Pressure Mean [Left Arm] Blood Pressure Position [Left Arm] Pulse Oximetry Oxygen Delivery Method Oxygen Flow Rate Sepsis Recent Fever Within 48 Hours Sepsis New/Unexplained Change in Mental Status Sepsis Action Taken by Nursing Oxygen Flow Rate - Titration Pulse Oximetry Post Tiitration Home Medications Current Medication List: was personally reviewed by me Laboratory Data Attestation: I reviewed the patient's lab results. Result diagrams: 03/03/21 05:35 03/03/21 05:35 Lab Results 03/02/21 03/02/21 03/02/21 Range/Units 16:52 16:52 16:52 WBC 17.81 H (4.8-10.8) K/uL RBC 4.53 L (4.7-6.1) M/uL Hgb 13.6 L (14.0-18.0) g/dL Hct 39.3 L (42-52) % MCV 86.8 (80-100) fL MCH 30.0 (25-34) pg MCHC 34.6 (32-36) g/dL RDW Std Deviation 41.0 (36.4-46.3) fL RDW Coeff of Nirmala 12.8 (11.5-14.5) % Plt Count 202 (130-400) K/uL MPV 11.6 H (7.4-10.4) fL Immature Gran % (Auto) 0.4 % Neut % (Auto) 94.2 % Lymph % (Auto) 2.1 % [place] % (Auto) 3.2 % Eos % (Auto) 0.0 % Baso % (Auto) 0.1 % Neut # (Auto) 16.78 H (1.4-6.5) K/uL Lymph # (Auto) 0.38 L (1.2-3.4) K/uL [place] # (Auto) 0.57 (0.11-0.59) K/uL Eos # (Auto) 0.00 (0-0.5) K/uL Baso # (Auto) 0.01 (0-0.2) K/uL Immature Gran # (Auto) 0.07 H (0.00-0.02) K/uL Polychromasia 1+ PT 10.8 (9.0-12.0) Seconds INR 1.1 (0.9-1.1) Sodium 135 L (136-145) mmol/L Potassium 4.2 (3.5-5.1) mmol/L Chloride 103 (98-107) mmol/L Carbon Dioxide 23 (21-32) mmol/L Anion Gap 9.0 (3-11) BUN 46 H (7-18) mg/dl Creatinine 2.29 H (0.6-1.4) mg/dl Est Cr Clr Drug Dosing 32.9 ml/min Est GFR ( Amer) 32.8 ml/min Est GFR (Non-Af Amer) 28.3 ml/min BUN/Creatinine Ratio 20.3 H (10-20) Glucose 321 H* (70-99) mg/dl Lactate (0.4-2.0) mmol/L Calcium 8.9 (8.5-10.1) mg/dl Magnesium 1.7 L (1.8-2.4) mg/dl Total Bilirubin 2.1 H (0.2-1) mg/dl AST 20 (15-37) U/L ALT 18 (12-78) U/L Alkaline Phosphatase 87 (45-117) U/L Troponin I 0.223 H* (0-0.045) ng/ml Total Protein 7.4 (6.4-8.2) gm/dl Albumin 3.2 L (3.4-5.0) gm/dl Globulin 4.2 H (2.5-4.0) gm/dl Albumin/Globulin Ratio 0.8 L (0.9-2) Lipase 37 L (73-393) U/L Beta-Hydroxybutyric Acd 1.47 (0.2-2.81) mg/dl Procalcitonin (0-0.5) ng/ml TSH 1.690 (0.300-4.500) uIu/ml Urine Color Urine Appearance (Clear) Urine pH (4.5-7.5) Ur Specific [place] (1.000-1.030) Urine Protein (Negative) Urine Glucose (UA) (Negative) Urine Ketones (Negative) Urine Blood (Negative) Urine Nitrite (Negative) Urine Bilirubin (Negative) Urine Urobilinogen (Negative) Ur Leukocyte Esterase (Negative) Urine WBC (Auto) (0-5) /hpf Urine RBC (Auto) (0-4) /hpf U Hyaline Cast (Auto) (0-5) /lpf U Epithel Cells (Auto) (0-5) /lpf Urine Bacteria (Auto) (Negative) Ur Renal Epithelial Cell Urine Mucus (None Prsent) COVID-19 Eval Order SARS-CoV-2 (PCR) (Negative) 03/02/21 03/02/21 03/02/21 Range/Units 17:01 17:01 17:25 WBC (4.8-10.8) K/uL RBC (4.7-6.1) M/uL Hgb (14.0-18.0) g/dL Hct (42-52) % MCV (80-100) fL MCH (25-34) pg MCHC (32-36) g/dL RDW Std Deviation (36.4-46.3) fL RDW Coeff of Nirmala (11.5-14.5) % Plt Count (130-400) K/uL MPV (7.4-10.4) fL Immature Gran % (Auto) % Neut % (Auto) % Lymph % (Auto) % [place] % (Auto) % Eos % (Auto) % Baso % (Auto) % Neut # (Auto) (1.4-6.5) K/uL Lymph # (Auto) (1.2-3.4) K/uL [place] # (Auto) (0.11-0.59) K/uL Eos # (Auto) (0-0.5) K/uL Baso # (Auto) (0-0.2) K/uL Immature Gran # (Auto) (0.00-0.02) K/uL Polychromasia PT (9.0-12.0) Seconds INR (0.9-1.1) Sodium (136-145) mmol/L Potassium (3.5-5.1) mmol/L Chloride (98-107) mmol/L Carbon Dioxide (21-32) mmol/L Anion Gap (3-11) BUN (7-18) mg/dl Creatinine (0.6-1.4) mg/dl Est Cr Clr Drug Dosing ml/min Est GFR ( Amer) ml/min Est GFR (Non-Af Amer) ml/min BUN/Creatinine Ratio (10-20) Glucose (70-99) mg/dl Lactate 3.5 H* (0.4-2.0) mmol/L Calcium (8.5-10.1) mg/dl Magnesium (1.8-2.4) mg/dl Total Bilirubin (0.2-1) mg/dl AST (15-37) U/L ALT (12-78) U/L Alkaline Phosphatase (45-117) U/L Troponin I (0-0.045) ng/ml Total Protein (6.4-8.2) gm/dl Albumin (3.4-5.0) gm/dl Globulin (2.5-4.0) gm/dl Albumin/Globulin Ratio (0.9-2) Lipase (73-393) U/L Beta-Hydroxybutyric Acd (0.2-2.81) mg/dl Procalcitonin (0-0.5) ng/ml TSH (0.300-4.500) uIu/ml Urine Color Urine Appearance (Clear) Urine pH (4.5-7.5) Ur Specific [place] (1.000-1.030) Urine Protein (Negative) Urine Glucose (UA) (Negative) Urine Ketones (Negative) Urine Blood (Negative) Urine Nitrite (Negative) Urine Bilirubin (Negative) Urine Urobilinogen (Negative) Ur Leukocyte Esterase (Negative) Urine WBC (Auto) (0-5) /hpf Urine RBC (Auto) (0-4) /hpf U Hyaline Cast (Auto) (0-5) /lpf U Epithel Cells (Auto) (0-5) /lpf Urine Bacteria (Auto) (Negative) Ur Renal Epithelial Cell Urine Mucus (None Prsent) COVID-19 Eval Order Covid19 at [facility] SARS-CoV-2 (PCR) NEGATIVE (Negative) 03/02/21 03/02/21 03/02/21 Range/Units 18:25 18:25 19:20 WBC (4.8-10.8) K/uL RBC (4.7-6.1) M/uL Hgb (14.0-18.0) g/dL Hct (42-52) % MCV (80-100) fL MCH (25-34) pg MCHC (32-36) g/dL RDW Std Deviation (36.4-46.3) fL RDW Coeff of Nirmala (11.5-14.5) % Plt Count (130-400) K/uL MPV (7.4-10.4) fL Immature Gran % (Auto) % Neut % (Auto) % Lymph % (Auto) % [place] % (Auto) % Eos % (Auto) % Baso % (Auto) % Neut # (Auto) (1.4-6.5) K/uL Lymph # (Auto) (1.2-3.4) K/uL [place] # (Auto) (0.11-0.59) K/uL Eos # (Auto) (0-0.5) K/uL Baso # (Auto) (0-0.2) K/uL Immature Gran # (Auto) (0.00-0.02) K/uL Polychromasia PT (9.0-12.0) Seconds INR (0.9-1.1) Sodium (136-145) mmol/L Potassium (3.5-5.1) mmol/L Chloride (98-107) mmol/L Carbon Dioxide (21-32) mmol/L Anion Gap (3-11) BUN (7-18) mg/dl Creatinine (0.6-1.4) mg/dl Est Cr Clr Drug Dosing ml/min Est GFR ( Amer) ml/min Est GFR (Non-Af Amer) ml/min BUN/Creatinine Ratio (10-20) Glucose (70-99) mg/dl Lactate 3.6 H* (0.4-2.0) mmol/L Calcium (8.5-10.1) mg/dl Magnesium (1.8-2.4) mg/dl Total Bilirubin (0.2-1) mg/dl AST (15-37) U/L ALT (12-78) U/L Alkaline Phosphatase (45-117) U/L Troponin I (0-0.045) ng/ml Total Protein (6.4-8.2) gm/dl Albumin (3.4-5.0) gm/dl Globulin (2.5-4.0) gm/dl Albumin/Globulin Ratio (0.9-2) Lipase (73-393) U/L Beta-Hydroxybutyric Acd (0.2-2.81) mg/dl Procalcitonin 33.93 H (0-0.5) ng/ml TSH (0.300-4.500) uIu/ml Urine Color Dark Yellow Urine Appearance Clear (Clear) Urine pH 5.5 (4.5-7.5) Ur Specific [place] 1.022 (1.000-1.030) Urine Protein 1+ H (Negative) Urine Glucose (UA) 2+ H (Negative) Urine Ketones Trace H (Negative) Urine Blood Negative (Negative) Urine Nitrite Negative (Negative) Urine Bilirubin 1+ H (Negative) Urine Urobilinogen Negative (Negative) Ur Leukocyte Esterase Trace H (Negative) Urine WBC (Auto) 5-10 H (0-5) /hpf Urine RBC (Auto) 0-4 (0-4) /hpf U Hyaline Cast (Auto) 1-5 (0-5) /lpf U Epithel Cells (Auto) >30 H (0-5) /lpf Urine Bacteria (Auto) Negative (Negative) Ur Renal Epithelial Cell Not Reportable Urine Mucus Present A (None Prsent) COVID-19 Eval Order SARS-CoV-2 (PCR) (Negative) Administered Medications Heparin Sodium (Porcine) (Heparin Sod 5,000 Unit/0.5 Ml Vial) 5,000 units SQ Q8 PORFIRIO Stop: 04/01/21 22:06 Last Admin: 03/03/21 05:42 Dose: Not Given Documented by: [id number] Admin: 03/02/21 22:44 Dose: 5,000 units Documented by: [id number] Ampicillin Sodium/Sulbactam Sodium 3,000 mg/ Sodium Chloride 108 mls @ 200 mls/hr IV Q6H [facility]; Protocol Stop: 03/10/21 03:59 Last Infusion: 03/03/21 04:57 Dose: 0 mls/hr Documented by: [id number] Admin: 03/03/21 04:05 Dose: 200 mls/hr Documented by: [id number] Lactated Ringer's (Lr) 1,000 mls @ 150 mls/hr IV .Q6H40M ONE Stop: 03/03/21 12:39 Last Admin: 03/03/21 05:42 Dose: 150 mls/hr Documented by: [id number] Insulin Aspart (Insulin Aspart 100 Units/Ml 3 Ml Pen) 0 units SC ACHS PORFIRIO Stop: 04/01/21 22:06 Last Admin: 03/03/21 08:11 Dose: 5 units Documented by: [id number] Cosigned by: [id number] Admin: 03/02/21 22:49 Dose: 6 units Documented by: [id number] Cosigned by: [id number] Insulin Glargine (Insulin Glargine Solostar 100 Units/Ml 3 Ml Pen) 10 units SC BID PORFIRIO Stop: 04/02/21 08:59 Last Admin: 03/03/21 08:13 Dose: 10 units Documented by: [id number] Cosigned by: [id number] Levalbuterol HCl (Levalbuterol Hcl 1.25 Mg/3 Ml Neb) 1.25 mg NEB Q6R PORFIRIO Stop: 04/02/21 00:59 Last Admin: 03/03/21 07:45 Dose: 1.25 mg Documented by: [id number] Admin: 03/03/21 00:23 Dose: 1.25 mg Documented by: [id number] Discontinued Medications Albuterol (Albut/Ipratrop 3mg/0.5mg Neb 3 Ml Vial) 6 ml NEB NOW STA Stop: 03/02/21 19:11 Last Admin: 03/02/21 21:42 Dose: Not Given Documented by: [id number] Benzonatate (Benzonatate 100 Mg Capsule) 100 mg PO NOW ONE Stop: 03/02/21 19:11 Last Admin: 03/02/21 19:55 Dose: 100 mg Documented by: [id number] Sodium Chloride (Nss 1000ml) 1,000 mls @ 999 mls/hr IV .Q1H1M PORFIRIO Stop: 03/02/21 17:45 Last Infusion: 03/02/21 18:22 Dose: 0 mls/hr Documented by: [id number] Admin: 03/02/21 17:21 Dose: 999 mls/hr Documented by: [id number] Sodium Chloride (Nss 1000ml) 1,000 mls @ 999 mls/hr IV .Q1H1M ONE Stop: 03/02/21 17:38 Last Infusion: 03/02/21 18:21 Dose: 0 mls/hr Documented by: [id number] Admin: 03/02/21 17:20 Dose: 999 mls/hr Documented by: [id number] Sodium Chloride (Nss 1000ml) 1,000 mls @ 999 mls/hr IV .Q1H1M ONE Stop: 03/02/21 18:23 Last Admin: 03/02/21 19:19 Dose: Not Given Documented by: [id number] Cefepime HCl (Maxipime) 2,000 mg in 20 mls @ 5 mls/min IV NOW STA; Protocol Stop: 03/02/21 18:50 Last Admin: 03/02/21 19:17 Dose: 5 mls/min Documented by: [id number] Ampicillin Sodium/Sulbactam Sodium 3,000 mg/ Sodium Chloride 108 mls @ 200 mls/hr IV 2000 ONE Stop: 03/02/21 20:32 Last Infusion: 03/02/21 22:06 Dose: 0 mls/hr Documented by: [id number] Admin: 03/02/21 21:33 Dose: 200 mls/hr Documented by: [id number] Magnesium Sulfate/Dextrose (Magnesium Sulfate / D5w) 1 gm in 100 mls @ 50 mls/hr IV Q2H PORFIRIO Stop: 03/02/21 23:29 Last Infusion: 03/02/21 23:06 Dose: 0 mls/hr Documented by: [id number] Admin: 03/02/21 21:03 Dose: 50 mls/hr Documented by: [id number] Infusion: 03/02/21 21:02 Dose: 0 mls/hr Documented by: [id number] Admin: 03/02/21 20:02 Dose: 50 mls/hr Documented by: [id number] Lactated Ringer's (Lr) 1,000 mls @ 500 mls/hr IV .Q2H ONE Stop: 03/02/21 21:58 Last Infusion: 03/03/21 00:49 Dose: 0 mls/hr Documented by: [id number] Admin: 03/02/21 22:44 Dose: 500 mls/hr Documented by: [id number] Doxycycline Hyclate 100 mg/ (Dextrose) 110 mls @ 50 mls/hr IV NOW STA Stop: 03/02/21 22:23 Last Infusion: 03/02/21 23:49 Dose: 0 mls/hr Documented by: [id number] Admin: 03/02/21 21:34 Dose: 50 mls/hr Documented by: [id number] Lactated Ringer's (Lr) 1,000 mls @ 200 mls/hr IV .Q5H ONE Stop: 03/03/21 02:59 Last Infusion: 03/03/21 05:43 Dose: 0 mls/hr Documented by: [id number] Admin: 03/03/21 00:48 Dose: 200 mls/hr Documented by: [id number] Insulin Glargine (Insulin Glargine Solostar 100 Units/Ml 3 Ml Pen) 15 units SC NOW STA Stop: 03/02/21 20:16 Last Admin: 03/02/21 21:36 Dose: 15 units Documented by: [id number] Cosigned by: [id number] Ipratropium [place] (Ipratropium [place] Neb Soln 0.02% 2.5 Ml Vial) 0.5 mg INH NOW STA Stop: 03/02/21 19:26 Last Admin: 03/02/21 20:33 Dose: 0.5 mg Documented by: [id number] Levalbuterol HCl (Levalbuterol 1.25mg/0.5ml Neb) 1.25 mg INH NOW STA Stop: 03/02/21 19:27 Last Admin: 03/02/21 20:33 Dose: 1.25 mg Documented by: [id number] Methylprednisolone (Methylprednisolone 40 Mg/Ml Vial) 20 mg IV NOW STA Stop: 03/02/21 19:13 Last Admin: 03/02/21 19:56 Dose: 20 mg Documented by: [id number] Imaging Data Radiologist's Impression: Chest X-Ray 03/02/21 16:37 XR chest 1V portable CLINICAL HISTORY: weakness TECHNIQUE: Single frontal radiograph of the chest was obtained. Comparison: Comparison is made to chest one view 02/16/2019 FINDINGS: No lines and tubes are seen. The cardiomediastinal silhouette is normal. Multifocal airspace opacities are seen in the left lower lung and to a lesser extent in the right lower lung. No evidence of pleural effusion or pneumothorax. IMPRESSION: Left greater than right lower lung airspace opacities favored to represent aspiration or pneumonia with or without a component of atelectasis. ACT 112: Negative or not required by law. Electronically signed by: Marvin Barcenas M.D. 03/02/2021 5:52 PM Chest X-Ray 03/02/21 16:37 XR chest 1V portable CLINICAL HISTORY: weakness TECHNIQUE: Single frontal radiograph of the chest was obtained. Comparison: Comparison is made to chest one view 02/16/2019 FINDINGS: No lines and tubes are seen. The cardiomediastinal silhouette is normal. Multifocal airspace opacities are seen in the left lower lung and to a lesser extent in the right lower lung. No evidence of pleural effusion or pneumothorax. IMPRESSION: Left greater than right lower lung airspace opacities favored to represent aspiration or pneumonia with or without a component of atelectasis. ACT 112: Negative or not required by law. Electronically signed by: Marvin Barcenas M.D. 03/02/2021 5:52 PM Venous Doppler Study 03/02/21 16:37 US venous doppler LE CLINICAL HISTORY: leg pain, hypoxia COMPARISON: None available at the time of this dictation. TECHNIQUE: Left lower extremity real-time compression venous ultrasound with Color Doppler imaging. Utilizing real-time ultrasonic imaging multiple real time high-resolution ultrasonic images with compression and noncompression maneuvers of the deep venous system in addition to color doppler imaging were performed from the common femoral vein through the proximal calf veins. FINDINGS: Currently there is normal compressibility of the deep venous system from the common femoral vein through the proximal calf veins. No current evidence of acute thrombosis is identified. Impression: No evidence of deep venous thrombus. ACT 112: Negative or not required by law. Electronically signed by: Marvin Barcenas M.D. 03/02/2021 7:41 PM Discharge Plan Visit Data Chief Complaint: Vomiting Stated Complaint: VOMITING, DIARRHEA, FEVER ED Provider: Mynor Cruz Discharge Problem: Acute hypoxemic respiratory failure, Sepsis, Pneumonia, HE (acute kidney injury), Hyperglycemia Patient Disposition: Admitted As Inpatient Discharge Instructions Interventions: ED Discharge Assessment Last Done: 03/02/21 21:55 Discharge Problem: Sepsis Qualifiers: Sepsis type: sepsis due to unspecified organism Sepsis acute organ dysfunction status: with acute organ dysfunction Severe sepsis acute organ dysfunction type: unspecified Severe sepsis shock status: unspecified Qualified Code(s): A41.9 - Sepsis, unspecified organism Pneumonia Qualifiers: Pneumonia type: due to unspecified organism Laterality: left Lung location: lower lobe of lung Qualified Code(s): J18.9 - Pneumonia, unspecified organism
[2021-03-02 17:47] LABS: Hematocrit (blood only) 39.3 % (42-52); Hemoglobin 13.6 g/dL (14.0-18.0); Mean Corpuscular Hgb Conc 34.6 g/dL (32-36); Mean Corpuscular Volume 86.8 fL (80-100); Mean Platelet Volume 11.6 fL (7.4-10.4); Platelet Count 202 K/uL (130-400); RDW Coefficient of Variation 12.8 % (11.5-14.5); Red Blood Count 4.53 M/uL (4.7-6.1); White Blood Count 17.81 K/uL (4.8-10.8)
--- NOTE | 2021-03-02 17:53 | XRay Report ---
XR chest 1V portable CLINICAL HISTORY: weakness TECHNIQUE: Single frontal radiograph of the chest was obtained. Comparison: Comparison is made to chest one view 02/16/2019 FINDINGS: No lines and tubes are seen. The cardiomediastinal silhouette is normal. Multifocal airspace opacitie s are seen in the left lower lung and to a lesser extent in the right lower lung. No evidence of pleu ral effusion or pneumothorax. IMPRESSION: Left greater than right lower lung airspace opacities favored to represent aspiration or pneumonia wi th or without a component of atelectasis. ACT 112: Negative or not required by law. Electronically signed by: Marvin Barcenas M.D. 03/02/2021 5:52 PM
[2021-03-02 18:02] LABS: INR 1.1 (0.9-1.1); Prothrombin Time 10.8 Seconds (9.0-12.0)
[2021-03-02 18:26] LABS: Basophils # (auto) 0.01 K/uL (0-0.2); Basophils % (auto) 0.1 %; Immature Granulocytes # (auto) 0.07 K/uL (0.00-0.02); Immature Granulocytes % (auto) 0.4 %; Lymphocytes # (auto) 0.38 K/uL (1.2-3.4); Lymphocytes % (auto) 2.1 %; Monocytes # (auto) 0.57 K/uL (0.11-0.59); Monocytes % (auto) 3.2 %; Neutrophils # (auto) 16.78 K/uL (1.4-6.5); Neutrophils % (auto) 94.2 %; Polychromasia 1+
[2021-03-02 18:32] LABS: Albumin Level 3.2 gm/dl (3.4-5.0); BUN Creatinine Ratio 20.3 (10-20); Calcium 8.9 mg/dl (8.5-10.1); Creatinine Clr Calc Pharmacy 32.9 ml/min; Est GFR (African American) 32.8 ml/min; Est GFR (Non-African American) 28.3 ml/min; Magnesium 1.7 mg/dl (1.8-2.4); Potassium 4.2 mmol/L (3.5-5.1)
[2021-03-02 18:36] LABS: Appearance Urine Clear (Clear); Bacteria Urine Automated Negative (Negative); Bilirubin Urine 1+ (Negative); Blood Urine Negative (Negative); Color Urine Dark Yellow; Epithelial Cell Urine Auto >30 /lpf (0-5); Glucose Urine UA 2+ (Negative); Ketones Urine Trace (Negative); Leukocyte Esterase Urine Trace (Negative); Nitrite Urine Negative (Negative); Protein Urine 1+ (Negative); RBC Urine Automated 0-4 /hpf (0-4); Specific Gravity Urine 1.022 (1.000-1.030); Urobilinogen Urine Negative (Negative); pH Urine 5.5 (4.5-7.5)
[2021-03-02] MEDS ORDERED: CEFEPIME 2,000 MG/20 ML VIAL IV STA (18:47)
[2021-03-02 18:50] LABS: Mucus Urine Present (None Prsent)
[2021-03-02 19:06] LABS: Albumin Globulin Ratio 0.8 (0.9-2); Bilirubin,Total 2.1 mg/dl (0.2-1); Globulin 4.2 gm/dl (2.5-4.0); Total Protein 7.4 gm/dl (6.4-8.2)
[2021-03-02] MEDS ORDERED: ALBUT/IPRATROP 3MG/0.5MG NEB 3 ML VIAL NEB STA (19:10)
[2021-03-02] MEDS ORDERED: BENZONATATE 100 MG CAPSULE PO ONE (19:10)
[2021-03-02] MEDS ORDERED: XOPENEX/ATROVENT 1.25mg/0.5MG NEB COMBO NEB STA (19:12)
[2021-03-02] MEDS ORDERED: IPRATROPIUM BROMIDE NEB SOLN 0.02% 2.5 ML VIAL INH STA (19:25)
[2021-03-02] MEDS ORDERED: LEVALBUTEROL 1.25MG/0.5ML NEB INH STA (19:26)
[2021-03-02 19:27] LABS: Beta-Hydroxybutyrate 1.47 mg/dl (0.2-2.81); Thyroid Stimulating Hormone 1.69 uIu/ml (0.300-4.500)
[2021-03-02 19:36] LABS: Troponin I 0.223 ng/ml (0-0.045)
--- NOTE | 2021-03-02 19:43 | Ultrasound Report ---
US venous doppler LE LT CLINICAL HISTORY: leg pain, hypoxia COMPARISON: None available at the time of this dictation. TECHNIQUE: Left lower extremity real-time compression venous ultrasound with Color Doppler imaging. Utilizing real-time ultrasonic imaging multiple real time high-resolution ultrasonic images with comp ression and noncompression maneuvers of the deep venous system in addition to color doppler imaging w ere performed from the common femoral vein through the proximal calf veins. FINDINGS: Currently there is normal compressibility of the deep venous system from the common femoral vein thro ugh the proximal calf veins. No current evidence of acute thrombosis is identified. Impression: No evidence of deep venous thrombus. ACT 112: Negative or not required by law. Electronically signed by: Marvin Barcenas M.D. 03/02/2021 7:41 PM
--- NOTE | 2021-03-02 19:53 | History & Physical Report ---
Date of Service March 02, 2021 Assessment & Plan (1) Acute hypoxemic respiratory failure: Plan: Secondary to bronchopneumonia, possible aspiration pneumonia Severe sepsis SIRS plus ARF on CKD plus hypoxemia secondary to above HTN, patient hypotensive, patient not on maintenance medications Cdalm-Qkmkuflft-Zexul/PSVT syndrome as per records, hx PAD status post surgery DM2 insulin requiring, suboptimal control as of recent hemoglobin A1c of 9.17 July 2020 PCU given hypotension Solu-Medrol 1 dose now, nebs RTC given bronchospasm causing hypoxemia CS, Unasyn Aspiration precautions Swallow evaluation Monitor creatinine response to IVF Basal insulin, ISS BG goal 1 10-1 40, carb count coverage, update hemoglobin A1c DVT prophylaxis per Heparin subcu Full code Total critical care time was 40 minutes. Text document was generated using [employer] voice recognition software. It may contain grammatical or spelling errors. Kindly contact undersigned for clarification of any documentation item in question. History of Present Illness Chief Complaint: Cough, shortness of breath Primary Care Provider: Jonas King MD History obtained from patient and records. Medical history significant for HTN, hyperlipidemia, Aaqql-Nsmcpfzqc-Dmyuq/PSVT syndrome as per records, PAD status post surgery, DM2 insulin requiring, CRI (baseline creatinine 1.3), GERD. Last confinement March 2019 for right foot osteomyelitis status post antibiotic Rx. 3 days ago patient noted cough symptoms productive cough rust colored sputum. Patient coughs when he eats/drinks water too fast. Chest pain from the coughing. No known recent sick contacts. Nonbloody bilious emesis without ab dominal pain. Left lower leg somewhat painful. At the ER, O2 sats noted to be 80s at one point. Patient given Cefepime at the ER. MEDICAL HISTORY: As above. SURGERIES: He has had eye surgery, both amputation and bone debridement, femoropopliteal bypass FAMILY HISTORY: Unknown to patient as patient is adopted. PERSONAL AND SOCIAL HISTORY: Nonsmoker, no chronic intake of alcoholic beverages. 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 Allergies Allergy/AdvReac Type Severity Reaction Status Date / Time sympathomimetics AdvReac Severe Chest Pain Uncoded 03/02/21 20:02 Home Medications Medication Instructions Recorded Confirmed Type ibuprofen 200 mg tablet 400 mg PO Q6H PRN 03/02/21 03/02/21 History insulin aspart U-100 100 unit/mL 8 unit SUBCUT TID 03/02/21 03/02/21 History (3 mL) subcutaneous pen (Novolog Flexpen U-100 Insulin aspart) insulin degludec 100 unit/mL (3 34 unit SUBCUT DAILY 03/02/21 03/02/21 History mL) subcutaneous pen (Tresiba FlexTouch U-100 insulin) metformin 500 mg tablet,extended 1,000 mg PO BIDM 03/02/21 03/02/21 History release 24 hr semaglutide (Ozempic) 0.25 mg SUBCUT WK 03/02/21 03/02/21 History Past Med/Surg History Medical History (Updated 03/02/21 @ 19:14 by Mynor Cruz MD) Acquired bilateral foot deformity HE (acute kidney injury) Cellulitis of left lower extremity without foot Diabetes Diabetes mellitus with neuropathy Diabetic peripheral neuropathy Hallux abducto valgus, bilateral Hypertension Peripheral vascular disease Uncontrolled diabetes mellitus WPW syndrome Surgical History History of back surgery Social History Smoking Status: Never smoker Hx Alcohol Use: No Hx Substance Use: No Preferred Language: Indonesian Communication Ability: Effective Property Specialist Required: No Beliefs That Will Affect Care: None Current Living Situation: Spouse Feels Safe at Home: Yes Assistive Devices: Oxygen - Continuous Review of Systems Review of Systems: As per HPI, all 10 systems reviewed, all other ROS negative Physical Exam Physical Exam: GENERAL: uncomfortable, minimal respiratory distress SKIN: Pallor , warm HEENT: Pale palpebral conjunctivae, no ptosis, dry buccal mucosa, nasal cannula in place NECK : Supple, no tenderness CHEST : Decreased breath sounds, bilateral rhonchi with expiratory wheezes, no tenderness HEART : Tachycardic, no obvious murmurs ABDOMEN: Some distention, nontender EXTREMITIES : No LE swelling/tenderness, no other conspicuous deformities noted NEUROLOGIC : Coherent, no facial asymmetry, no other gross focality Results & Data Results & Data ([facility]) Vital Signs (Past 12 Hours) Vital Signs Temp Pulse Pulse Resp BP BP Pulse Ox 03/02/21 19:00 102 H 32 H 102/58 L 98 03/02/21 18:50 102 H 33 H 93/63 L 03/02/21 18:40 107 H 32 H 96 03/02/21 18:30 108 H 36 H 03/02/21 18:20 104 H 29 H 90/64 L 98 03/02/21 18:10 108 H 33 H 105/71 97 03/02/21 18:00 105 H 26 H 85/73 L 97 03/02/21 17:50 107 H 24 92 03/02/21 17:40 102 H 23 86/70 L 03/02/21 17:30 102 H 24 83/61 L 03/02/21 17:20 98 H 28 H 85/54 L 94 03/02/21 17:10 96 H 31 H 96 03/02/21 17:00 94 H 28 H 03/02/21 16:59 96 03/02/21 16:54 89 L 03/02/21 16:50 96 H 29 H 95 03/02/21 16:40 94 H 29 H 96 03/02/21 16:39 95 H 30 H 96 03/02/21 16:21 97 H 98 H 28 H 108/62 89 L 03/02/21 15:55 37 C 106 H 16 106/66 92 Laboratory Results Laboratory Results WBC 17.81 K/uL (4.8-10.8) H 03/02/21 16:52 RBC 4.53 M/uL (4.7-6.1) L 03/02/21 16:52 Hgb 13.6 g/dL (14.0-18.0) L 03/02/21 16:52 Hct 39.3 % (42-52) L 03/02/21 16:52 MCV 86.8 fL (80-100) 03/02/21 16:52 MCH 30.0 pg (25-34) 03/02/21 16:52 MCHC 34.6 g/dL (32-36) 03/02/21 16:52 RDW Std Deviation 41.0 fL (36.4-46.3) 03/02/21 16:52 RDW Coeff of Nirmala 12.8 % (11.5-14.5) 03/02/21 16:52 Plt Count 202 K/uL (130-400) 03/02/21 16:52 MPV 11.6 fL (7.4-10.4) H 03/02/21 16:52 Immature Gran % (Auto) 0.4 % 03/02/21 16:52 Neut % (Auto) 94.2 % 03/02/21 16:52 Lymph % (Auto) 2.1 % 03/02/21 16:52 [place] % (Auto) 3.2 % 03/02/21 16:52 Eos % (Auto) 0.0 % 03/02/21 16:52 Baso % (Auto) 0.1 % 03/02/21 16:52 Neut # (Auto) 16.78 K/uL (1.4-6.5) H 03/02/21 16:52 Lymph # (Auto) 0.38 K/uL (1.2-3.4) L 03/02/21 16:52 [place] # (Auto) 0.57 K/uL (0.11-0.59) 03/02/21 16:52 Eos # (Auto) 0.00 K/uL (0-0.5) 03/02/21 16:52 Baso # (Auto) 0.01 K/uL (0-0.2) 03/02/21 16:52 Immature Gran # (Auto) 0.07 K/uL (0.00-0.02) H 03/02/21 16:52 Polychromasia 1+ 03/02/21 16:52 PT 10.8 Seconds (9.0-12.0) 03/02/21 16:52 INR 1.1 (0.9-1.1) 03/02/21 16:52 Sodium 135 mmol/L (136-145) L 03/02/21 16:52 Potassium 4.2 mmol/L (3.5-5.1) 03/02/21 16:52 Chloride 103 mmol/L (98-107) 03/02/21 16:52 Carbon Dioxide 23 mmol/L (21-32) 03/02/21 16:52 Anion Gap 9.0 (3-11) 03/02/21 16:52 BUN 46 mg/dl (7-18) H 03/02/21 16:52 Creatinine 2.29 mg/dl (0.6-1.4) H 03/02/21 16:52 Est Cr Clr Drug Dosing 32.9 ml/min 03/02/21 16:52 Est GFR ( Amer) 32.8 ml/min 03/02/21 16:52 Est GFR (Non-Af Amer) 28.3 ml/min 03/02/21 16:52 BUN/Creatinine Ratio 20.3 (10-20) H 03/02/21 16:52 Glucose 321 mg/dl (70-99) H* 03/02/21 16:52 Lactate 3.5 mmol/L (0.4-2.0) H* 03/02/21 17:25 Calcium 8.9 mg/dl (8.5-10.1) 03/02/21 16:52 Magnesium 1.7 mg/dl (1.8-2.4) L 03/02/21 16:52 Total Bilirubin 2.1 mg/dl (0.2-1) H 03/02/21 16:52 AST 20 U/L (15-37) 03/02/21 16:52 ALT 18 U/L (12-78) 03/02/21 16:52 Alkaline Phosphatase 87 U/L (45-117) 03/02/21 16:52 Troponin I 0.223 ng/ml (0-0.045) H* 03/02/21 16:52 Total Protein 7.4 gm/dl (6.4-8.2) 03/02/21 16:52 Albumin 3.2 gm/dl (3.4-5.0) L 03/02/21 16:52 Globulin 4.2 gm/dl (2.5-4.0) H 03/02/21 16:52 Albumin/Globulin Ratio 0.8 (0.9-2) L 03/02/21 16:52 Lipase 37 U/L (73-393) L 03/02/21 16:52 Beta-Hydroxybutyric Acd 1.47 mg/dl (0.2-2.81) 03/02/21 16:52 Procalcitonin 33.93 ng/ml (0-0.5) H 03/02/21 18:25 TSH 1.690 uIu/ml (0.300-4.500) 03/02/21 16:52 Urine Color Dark Yellow 03/02/21 18:25 Urine Appearance Clear (Clear) 03/02/21 18:25 Urine pH 5.5 (4.5-7.5) 03/02/21 18:25 Ur Specific [place] 1.022 (1.000-1.030) 03/02/21 18:25 Urine Protein 1+ (Negative) H 03/02/21 18:25 Urine Glucose (UA) 2+ (Negative) H 03/02/21 18:25 Urine Ketones Trace (Negative) H 03/02/21 18:25 Urine Blood Negative (Negative) 03/02/21 18:25 Urine Nitrite Negative (Negative) 03/02/21 18:25 Urine Bilirubin 1+ (Negative) H 03/02/21 18:25 Urine Urobilinogen Negative (Negative) 03/02/21 18:25 Ur Leukocyte Esterase Trace (Negative) H 03/02/21 18:25 Urine WBC (Auto) 5-10 /hpf (0-5) H 03/02/21 18:25 Urine RBC (Auto) 0-4 /hpf (0-4) 03/02/21 18:25 U Hyaline Cast (Auto) 1-5 /lpf (0-5) 03/02/21 18:25 U Epithel Cells (Auto) >30 /lpf (0-5) H 03/02/21 18:25 Urine Bacteria (Auto) Negative (Negative) 03/02/21 18:25 Ur Renal Epithelial Cell Not Reportable 03/02/21 18:25 Urine Mucus Present (None Prsent) A 03/02/21 18:25 COVID-19 Eval Order Covid19 at [facility] 03/02/21 17:01 SARS-CoV-2 (PCR) NEGATIVE (Negative) 03/02/21 17:01 Impressions Chest X-Ray 03/02/21 16:37 XR chest 1V portable CLINICAL HISTORY: weakness TECHNIQUE: Single frontal radiograph of the chest was obtained. Comparison: Comparison is made to chest one view 02/16/2019 FINDINGS: No lines and tubes are seen. The cardiomediastinal silhouette is normal. Multifocal airspace opacities are seen in the left lower lung and to a lesser extent in the right lower lung. No evidence of pleural effusion or pneumothorax. IMPRESSION: Left greater than right lower lung airspace opacities favored to represent aspiration or pneumonia with or without a component of atelectasis. ACT 112: Negative or not required by law. Electronically signed by: Marvin Barcenas M.D. 03/02/2021 5:52 PM Venous Doppler Study 03/02/21 16:37 US venous doppler LE LT CLINICAL HISTORY: leg pain, hypoxia COMPARISON: None available at the time of this dictation. TECHNIQUE: Left lower extremity real-time compression venous ultrasound with Color Doppler imaging. Utilizing real-time ultrasonic imaging multiple real time high-resolution ultrasonic images with compression and noncompression maneuvers of the deep venous system in addition to color doppler imaging were performed from the common femoral vein through the proximal calf veins. FINDINGS: Currently there is normal compressibility of the deep venous system from the common femoral vein through the proximal calf veins. No current evidence of acute thrombosis is identified. Impression: No evidence of deep venous thrombus. ACT 112: Negative or not required by law. Electronically signed by: Marvin Barcenas M.D. 03/02/2021 7:41 PM Diagnostic Findings EKG per my interpretation: Rate 100, NSR, normal axis, T wave flattening lateral leads, inferior infarct
[2021-03-02] MEDS ORDERED: LACTATED RINGER'S 1,000 ML IV ONE ×2 (19:59→22:00)
[2021-03-02] MEDS ORDERED: AMPICILLIN/SULBACTAM SOD 3,000 MG in 0.9 % SODIUM CHLORIDE 100 ML IV ONE (20:00)
[2021-03-02] MEDS: MAGNESIUM SULFATE / D5W 1 GM/100 ML BAG IV SCH ×2 (20:02→21:03)
[2021-03-02] MEDS ORDERED: DOXYCYCLINE HYCLATE 100 MG in DEXTROSE 5% 100 ML IV STA (20:12)
[2021-03-02] MEDS ORDERED: INSULIN GLARGINE SOLOSTAR 100 UNITS/ML 3 ML PEN SC STA (20:15)
[2021-03-02] MEDS ORDERED: DEXTROSE 50% 50 ML SYRINGE IV PRN ×2 (20:30→22:07)
[2021-03-02] MEDS ORDERED: CARBOHYDRATES FOR HYPOGLYCEMIA PO PRN ×2 (20:30→22:07)
[2021-03-02] MEDS ORDERED: GLUCAGON FOR INJ 1 MG VIAL IM PRN (20:30)
[2021-03-02] MEDS ORDERED: GLUCOSE 10 TABS/TUBE PO PRN ×2 (20:30→22:07)
[2021-03-02] MEDS ORDERED: GLUCOSE 40% GEL 15 GM TUBE PO PRN ×2 (20:30→22:07)
[2021-03-02 20:59] LABS: Allen Test POS (Pos); Base Excess ABG -3.2 mEq/L (-9-1.8); HCO3 ABG 21 mmol/L (19-24); Oxygen Saturation ABG 95.3 % (90-95); PCO2 ABG 36 mmHg (35-46); PO2 ABG 73 mmHg (80-95); pH ABG 7.39 (7.35-7.45)
[2021-03-02] MEDS ORDERED: GLUCAGON FOR INJ 1 MG VIAL SQ PRN (22:07)
[2021-03-02] MEDS ORDERED: PROMETHAZINE HCL 12.5 MG in SODIUM CHLORIDE 0.9% 50 ML IV PRN (22:07)
[2021-03-02] MEDS ORDERED: ACETAMINOPHEN 325 MG TAB PO PRN (22:07)
[2021-03-02] MEDS: HEPARIN SOD 5,000 UNIT/0.5 ML VIAL SQ SCH (22:44)
[2021-03-02] MEDS: INSULIN ASPART 100 UNITS/ML 3 ML PEN SC SCH (22:49)
[2021-03-03] MEDS: LEVALBUTEROL HCL 1.25 MG/3 ML NEB NEB SCH ×4 (00:23→20:41)
[2021-03-03 01:14] LABS: BUN Creatinine Ratio 23.6 (10-20); Calcium 8.2 mg/dl (8.5-10.1); Creatinine Clr Calc Pharmacy 45.3 ml/min; Est GFR (African American) 43.8 ml/min; Est GFR (Non-African American) 37.8 ml/min; Potassium 4.4 mmol/L (3.5-5.1)
[2021-03-03] MEDS: AMPICILLIN/SULBACTAM SOD 3,000 MG in 0.9 % SODIUM CHLORIDE 100 ML IV SCH ×4 (04:05→22:18)
[2021-03-03] MEDS: HEPARIN SOD 5,000 UNIT/0.5 ML VIAL SQ SCH ×3 (05:42→22:09)
[2021-03-03 05:52] LABS: Hematocrit (blood only) 38.1 % (42-52); Hemoglobin 12.9 g/dL (14.0-18.0); Mean Corpuscular Hemoglobin 29.9 pg (25-34); Mean Corpuscular Hgb Conc 33.9 g/dL (32-36); Mean Corpuscular Volume 88.4 fL (80-100); Mean Platelet Volume 10.9 fL (7.4-10.4); Platelet Count 148 K/uL (130-400); RDW Coefficient of Variation 12.9 % (11.5-14.5); RDW Standard Deviation 41.8 fL (36.4-46.3); Red Blood Count 4.31 M/uL (4.7-6.1); White Blood Count 15.74 K/uL (4.8-10.8)
[2021-03-03] MEDS ORDERED: LACTATED RINGER'S 1,000 ML IV ONE ×2 (06:00→19:35)
[2021-03-03 06:18] LABS: BUN Creatinine Ratio 24.3 (10-20); Basophils # (auto) 0.01 K/uL (0-0.2); Basophils % (auto) 0.1 %; Calcium 8.4 mg/dl (8.5-10.1); Creatinine Clr Calc Pharmacy 50.3 ml/min; Dohle Bodies 1+; Est GFR (African American) 49.4 ml/min; Est GFR (Non-African American) 42.6 ml/min; Immature Granulocytes # (auto) 0.94 K/uL (0.00-0.02); Lymphocytes # (auto) 0.48 K/uL (1.2-3.4); Magnesium 2.1 mg/dl (1.8-2.4); Monocytes # (auto) 0.17 K/uL (0.11-0.59); Monocytes % (auto) 1.1 %; Neutrophils # (auto) 14.14 K/uL (1.4-6.5); Neutrophils % (auto) 89.8 %; Potassium 4.3 mmol/L (3.5-5.1); Toxic Vacuolation 1+
[2021-03-03] MEDS: INSULIN ASPART 100 UNITS/ML 3 ML PEN SC SCH ×4 (08:11→22:01)
[2021-03-03] MEDS ORDERED: INSULIN GLARGINE SOLOSTAR 100 UNITS/ML 3 ML PEN SC SCH (09:00)
[2021-03-03] MEDS ORDERED: AMPICILLIN/SULBACTAM CONSULT ACTIVE PRN (09:00)
[2021-03-03] MEDS ORDERED: guaiFENesin/CODEINE 100MG/10MG 5ML UDC PO STA (11:41)
--- NOTE | 2021-03-03 14:02 | Electrocardiogram Report ---
Test Reason : Blood Pressure : / mmHG Vent. Rate : 099 BPM Atrial Rate : 099 BPM P-R Int : 166 ms QRS Dur : 092 ms QT Int : 338 ms P-R-T Axes : 047 029 057 degrees QTc Int : 433 ms Normal sinus rhythm Possible Inferior infarct (cited on or before 20-AUG-2018) Abnormal ECG When compared with ECG of 15-MAR-2019 08:46, No significant change was found Confirmed by Harry Leger ([id number]) on 03/03/2021 2:01:47 PM Referred By: REFERRED SELF Confirmed By:Harry Leger
[2021-03-03] MEDS: BENZONATATE 100 MG CAPSULE PO SCH ×2 (16:17→21:59)
--- NOTE | 2021-03-03 18:07 | Hospitalist Progress Note ---
Date of Service March 03, 2021 Assessment & Plan (1) Severe sepsis: Plan: Sepsis secondary to pneumonia. Hypoxia also present. Elevated procalcitonin, leukocytosis, ongoing fever and tachycardia. Pt is improved but is not fully resuscitated at this point. Cont unasyn, restart IVF now, trend lactate and labs. Also will include RSV and flu panel now. (2) Acute hypoxemic respiratory failure: Plan: 2/2 pneumonia and underlying sepsis. (3) Pneumonia: Plan: Treatment as above. Blood and sputum cultures are pending. (4) HE (acute kidney injury): Plan: 2/2 sepsis. Cont resuscitation efforts with IVF and repeat BMP in am. (5) DMII (diabetes mellitus, type 2): Plan: Cont basal bolus insulin with some tightening of control. (6) PAD (peripheral artery disease): Plan: cont medical management per home regimen. (7) DVT prophylaxis: Plan: Heparin Full Code Dispo-cont [facility] Admission and Anticipated Discharge Date Admission Date: March 02, 2021 Subjective 70 yo M presented with sepsis 2/2 pneumonia He reports feeling somewhat better today breathing is better denies chest pain tolerating PO a little more some fevers and chills persist. Speech eval was normal and diet was advanced +productive cough of blood tinged sputum-collecting it on his desk Review of Systems Review of Systems: At least ten systems were reviewed and negative except as indicated in HPI above. Physical Exam Physical Exam: CONSTITUTIONAL: WNWD, vitals as above, generally ill- appearing, NAD EYES: normal conjunctivae, no scleral icterus ENT: external ear and nose normal, MMM NECK: trachea midline RESPIRATORY: mild crackles at left base, otherwise no rales or wheezes, normal respiratory effort CARDIOVASCULAR: regular rate and rhythm, S1 and 2 heard without murmurs, gallops or rubs, no JVD, no peripheral edema GASTROINTESTINAL: soft, nontender, ND, no guarding MUSCULOSKELETAL: strength 5/5 throughout, head is normocephalic and atraumatic SKIN: warm and dry, NEUROLOGIC: CN 2-12 grossly intact, no sensory deficit, normal cognition, normal speech, no tremor PSYCHIATRIC: alert cooperative and oriented to person, place and time. Euthymic mood, makes good eye contact, language grossly intact, recent and remote memory grossly intact. Results & Data Results & Data ([facility]) Vital Signs (Past 12 Hours) Vital Signs Temp Pulse Pulse Resp BP BP Pulse Ox 03/03/21 15:49 37.0 C 98 H 17 104/72 96 03/03/21 12:34 107 H 20 97 03/03/21 11:30 37.3 C 97 H 17 138/74 95 03/03/21 07:45 99 H 18 95 03/03/21 07:26 96 H 03/03/21 07:24 37.0 C 104 H 19 92/59 L 93 Laboratory Results Short CBC 03/03/21 Range/Units 05:35 WBC 15.74 H (4.8-10.8) K/uL Hgb 12.9 L (14.0-18.0) g/dL Hct 38.1 L (42-52) % Plt Count 148 (130-400) K/uL BMP 03/02/21 03/03/21 03/03/21 16:52 00:47 05:35 Sodium 135 L 136 138 Potassium 4.2 4.4 4.3 Chloride 103 108 H 108 H Carbon Dioxide 23 23 23 BUN 46 H 42 H 40 H Creatinine 2.29 H 1.80 H D 1.63 H Glucose 321 H* 261 H 222 H Calcium 8.9 8.2 L 8.4 L Cardiac Enzymes 03/02/21 Range/Units 16:52 Troponin I 0.223 H* (0-0.045) ng/ml Liver Function 03/02/21 Range/Units 16:52 Total Bilirubin 2.1 H (0.2-1) mg/dl AST 20 (15-37) U/L ALT 18 (12-78) U/L Alkaline Phosphatase 87 (45-117) U/L Albumin 3.2 L (3.4-5.0) gm/dl Urine 03/02/21 Range/Units 18:25 Urine Color Dark Yellow Urine Appearance Clear (Clear) Urine pH 5.5 (4.5-7.5) Ur Specific [place] 1.022 (1.000-1.030) Urine Protein 1+ H (Negative) Urine Glucose (UA) 2+ H (Negative) Medications Administered Current Inpatient Medications Acetaminophen (Acetaminophen 325 Mg Tab) 650 mg PO Q4H PRN PRN Reason: Pain or Fever Stop: 04/01/21 22:06 Benzonatate (Benzonatate 100 Mg Capsule) 100 mg PO TID [facility] Stop: 04/02/21 15:19 Last Admin: 03/03/21 16:17 Dose: 100 mg Documented by: Dextrose (Dextrose 50% 50 Ml Syringe) 25 - 50 ml IV UD PRN; Protocol PRN Reason: Hypoglycemia Protocol Stop: 04/01/21 20:29 Glucagon (Glucagon For Inj 1 Mg Vial) 1 mg IM UD PRN; Protocol PRN Reason: Hypoglycemia Protocol Stop: 04/01/21 20:29 Glucose (Glucose 40% Gel 15 Gm Tube) 15 - 30 gm PO UD PRN; Protocol PRN Reason: Hypoglycemia Protocol Stop: 04/01/21 20:29 Glucose (Glucose 10 Tabs/Tube) 4 - 8 tabs PO UD PRN; Protocol PRN Reason: Hypoglycemia Protocol Stop: 04/01/21 20:29 Guaifenesin/Codeine Phosphate (Guaifenesin/Codeine 200mg/20mg 10ml Udc) 10 ml PO Q6H PRN PRN Reason: Cough Stop: 04/02/21 11:40 Heparin Sodium (Porcine) (Heparin Sod 5,000 Unit/0.5 Ml Vial) 5,000 units SQ Q8 [facility] Stop: 04/01/21 22:06 Last Admin: 03/03/21 14:23 Dose: Not Given Documented by: Ampicillin Sodium/Sulbactam Sodium 3,000 mg/ Sodium Chloride 108 mls @ 200 mls/hr IV Q6H [facility]; Protocol Stop: 03/10/21 03:59 Last Infusion: 03/03/21 17:32 Dose: Infused Documented by: Insulin Aspart (Insulin Aspart 100 Units/Ml 3 Ml Pen) 0 units SC ACHS [facility] Stop: 04/01/21 22:06 Last Admin: 03/03/21 16:56 Dose: 9 units Documented by: Insulin Glargine (Insulin Glargine Solostar 100 Units/Ml 3 Ml Pen) 10 units SC BID [facility] Stop: 04/02/21 08:59 Last Admin: 03/03/21 08:13 Dose: 10 units Documented by: Levalbuterol HCl (Levalbuterol Hcl 1.25 Mg/3 Ml Neb) 1.25 mg NEB Q6R [facility] Stop: 04/02/21 00:59 Last Admin: 03/03/21 12:33 Dose: 1.25 mg Documented by: Miscellaneous (Carbohydrates For Hypoglycemia ) 15 - 30 gm PO UD PRN PRN Reason: Hypoglycemia Treatment Stop: 04/01/21 20:29 Miscellaneous Information (Ampicillin/Sulbactam Consult Active) 1 ea N/A UD PRN PRN Reason: Consult Stop: 04/02/21 08:59 (1) Pneumonia Laterality: left Lung location: lower lobe of lung Pneumonia type: due to unspecified organism Qualified Code(s): J18.9 - Pneumonia, unspecified organism
[2021-03-03 19:07] LABS: Hematocrit (blood only) 35.9 % (42-52); Hemoglobin 12.1 g/dL (14.0-18.0); Mean Corpuscular Hemoglobin 29.6 pg (25-34); Mean Corpuscular Hgb Conc 33.7 g/dL (32-36); Mean Corpuscular Volume 87.8 fL (80-100); Mean Platelet Volume 10.5 fL (7.4-10.4); Platelet Count 160 K/uL (130-400); RDW Coefficient of Variation 13.1 % (11.5-14.5); RDW Standard Deviation 42.4 fL (36.4-46.3); Red Blood Count 4.09 M/uL (4.7-6.1); White Blood Count 15.49 K/uL (4.8-10.8)
[2021-03-03 19:30] LABS: BUN Creatinine Ratio 22.5 (10-20); Calcium 8.3 mg/dl (8.5-10.1); Creatinine Clr Calc Pharmacy 50.3 ml/min; Est GFR (African American) 49.4 ml/min; Est GFR (Non-African American) 42.6 ml/min; Magnesium 2.2 mg/dl (1.8-2.4); Phosphorus 1.3 mg/dl (2.5-4.9); Potassium 3.9 mmol/L (3.5-5.1)
[2021-03-03] MEDS ORDERED: POTASSIUM PHOS 3 MMOL/1 ML INFUSION IV STA (19:37)
[2021-03-03 20:01] LABS: Adenovirus PCR Not Detected (NotDetected); Bordetella parapertussis PCR Not Detected (NotDetected); Bordetella pertussis PCR Not Detected (NotDetected); Chlamydia pneumoniae PCR Not Detected (NotDetected); Coronavirus 229E PCR Not Detected (NotDetected); Coronavirus CoV-2 (COVID19)PCR Not Detected (NotDetected); Coronavirus HKU1 PCR Not Detected (NotDetected); Coronavirus NL63 PCR Not Detected (NotDetected); Coronavirus OC43PCR Not Detected (NotDetected); Human Metapneumovirus PCR Not Detected (NotDetected); Influenza A PCR Not Detected (NotDetected); Influenza B PCR Not Detected (NotDetected); Mycoplasma pneumoniae PCR Not Detected (NotDetected); Parainfluenza Virus 1 PCR Not Detected (NotDetected); Parainfluenza Virus 2 PCR Not Detected (NotDetected); Parainfluenza Virus 3 PCR Not Detected (NotDetected); Parainfluenza Virus 4 PCR Not Detected (NotDetected); Respiratory Syncytial VirusPCR Not Detected (NotDetected); Rhinovirus/Enterovirus PCR Not Detected (NotDetected)
[2021-03-03] MEDS ORDERED: POTASSIUM PHOSPHATE 40 MMOL in SODIUM CHLORIDE 0.9% 1000ML 1,000 ML IV STA (20:19)
[2021-03-03] MEDS: INSULIN GLARGINE SOLOSTAR 100 UNITS/ML 3 ML PEN SC SCH (22:02)
[2021-03-04] MEDS: LEVALBUTEROL HCL 1.25 MG/3 ML NEB NEB SCH ×3 (00:27→12:58)
[2021-03-04] MEDS: AMPICILLIN/SULBACTAM SOD 3,000 MG in 0.9 % SODIUM CHLORIDE 100 ML IV SCH ×4 (04:00→21:04)
[2021-03-04] MEDS: HEPARIN SOD 5,000 UNIT/0.5 ML VIAL SQ SCH ×3 (05:59→21:05)
[2021-03-04 07:10] LABS: Hematocrit (blood only) 33.4 % (42-52); Hemoglobin 11.1 g/dL (14.0-18.0); Mean Corpuscular Hemoglobin 29.4 pg (25-34); Mean Corpuscular Hgb Conc 33.2 g/dL (32-36); Mean Corpuscular Volume 88.6 fL (80-100); Mean Platelet Volume 10.7 fL (7.4-10.4); Platelet Count 179 K/uL (130-400); RDW Coefficient of Variation 13.3 % (11.5-14.5); RDW Standard Deviation 43.4 fL (36.4-46.3); Red Blood Count 3.77 M/uL (4.7-6.1); White Blood Count 15.66 K/uL (4.8-10.8)
[2021-03-04 07:39] LABS: BUN Creatinine Ratio 21.6 (10-20); Calcium 8.4 mg/dl (8.5-10.1); Creatinine Clr Calc Pharmacy 57.6 ml/min; Est GFR (African American) 57.9 ml/min; Magnesium 2.3 mg/dl (1.8-2.4); Potassium 4.2 mmol/L (3.5-5.1)
[2021-03-04] MEDS: BENZONATATE 100 MG CAPSULE PO SCH ×3 (08:42→20:29)
[2021-03-04] MEDS: INSULIN GLARGINE SOLOSTAR 100 UNITS/ML 3 ML PEN SC SCH ×2 (08:44→20:59)
[2021-03-04] MEDS: INSULIN ASPART 100 UNITS/ML 3 ML PEN SC SCH ×4 (08:45→20:58)
--- NOTE | 2021-03-04 14:01 | Hospitalist Progress Note ---
Date of Service March 04, 2021 Assessment & Plan (1) Severe sepsis: Plan: Sepsis secondary to pneumonia. Hypoxia also present. Resuscitated at this point. Leukocytosis persists but tachycardia resolved and he is feeling better. Cont unasyn,, notably flu and RSV negative. Still with significant coughing spells. Cont nebs, add flutter valve and added scheduled guaifensin. Patient states no more cough syrup because it tastes bad. (2) Acute hypoxemic respiratory failure: Plan: 2/2 pneumonia and underlying sepsis-improving (3) Pneumonia: Plan: Treatment as above. Blood and sputum cultures are preliminarily negative. (4) HE (acute kidney injury): Plan: 2/2 sepsis. Off IVF and tolerating PO. Creatinine improved today to 1.4. (5) DMII (diabetes mellitus, type 2): Plan: Cont basal bolus insulin with some tightening of control. Inpatient glucose is at goal. (6) PAD (peripheral artery disease): Plan: cont medical management per home regimen. (7) DVT prophylaxis: Plan: Heparin Full Code Dispo-transfer to med/surg DO [facility] Hospitalist Admission and Anticipated Discharge Date Admission Date: March 02, 2021 Subjective 70 yo M presented with sepsis 2/2 pneumonia He reports feeling better today-sepsis is resuscitatedcoughing up less phlegm and not seeing any blood any longer. denies chest pain no fevers Speech eval was normal and diet was advanced Review of Systems Review of Systems: At least ten systems were reviewed and negative except as indicated in HPI above. Physical Exam Physical Exam: CONSTITUTIONAL: WNWD, vitals as above, generally ill- appearing, NAD EYES: normal conjunctivae, no scleral icterus ENT: external ear and nose normal, MMM NECK: trachea midline RESPIRATORY: mild crackles at left base, otherwise no rales or wheezes, normal respiratory effort CARDIOVASCULAR: regular rate and rhythm, S1 and 2 heard without murmurs, gallops or rubs, no JVD, no peripheral edema GASTROINTESTINAL: soft, nontender, ND, no guarding MUSCULOSKELETAL: strength 5/5 throughout, head is normocephalic and atraumatic SKIN: warm and dry, NEUROLOGIC: CN 2-12 grossly intact, no sensory deficit, normal cognition, normal speech, no tremor PSYCHIATRIC: alert cooperative and oriented to person, place and time. Euthymic mood, makes good eye contact, language grossly intact, recent and remote memory grossly intact. Results & Data Results & Data ([facility]) Vital Signs (Past 12 Hours) Vital Signs Temp Pulse Pulse Resp BP Pulse Ox 03/04/21 12:58 69 18 97 03/04/21 11:31 36.7 C 81 20 111/74 97 03/04/21 07:49 81 18 96 03/04/21 07:27 36.9 C 88 23 124/78 95 03/04/21 07:00 86 03/04/21 03:38 37.2 C 85 18 110/70 96 Laboratory Results Short CBC 03/03/21 03/04/21 Range/Units 18:54 06:36 WBC 15.49 H 15.66 H (4.8-10.8) K/uL Hgb 12.1 L 11.1 L (14.0-18.0) g/dL Hct 35.9 L 33.4 L (42-52) % Plt Count 160 179 (130-400) K/uL BMP 03/03/21 03/04/21 18:54 06:36 Sodium 138 138 Potassium 3.9 4.2 Chloride 106 107 Carbon Dioxide 25 28 BUN 37 H 31 H Creatinine 1.63 H 1.43 H Glucose 204 H 123 H Calcium 8.3 L 8.4 L Medications Administered Current Inpatient Medications Acetaminophen (Acetaminophen 325 Mg Tab) 650 mg PO Q4H PRN PRN Reason: Pain or Fever Stop: 04/01/21 22:06 Benzonatate (Benzonatate 100 Mg Capsule) 100 mg PO TID [facility] Stop: 04/02/21 15:19 Last Admin: 03/04/21 08:42 Dose: 100 mg Documented by: Dextrose (Dextrose 50% 50 Ml Syringe) 25 - 50 ml IV UD PRN; Protocol PRN Reason: Hypoglycemia Protocol Stop: 04/01/21 20:29 Glucagon (Glucagon For Inj 1 Mg Vial) 1 mg IM UD PRN; Protocol PRN Reason: Hypoglycemia Protocol Stop: 04/01/21 20:29 Glucose (Glucose 40% Gel 15 Gm Tube) 15 - 30 gm PO UD PRN; Protocol PRN Reason: Hypoglycemia Protocol Stop: 04/01/21 20:29 Glucose (Glucose 10 Tabs/Tube) 4 - 8 tabs PO UD PRN; Protocol PRN Reason: Hypoglycemia Protocol Stop: 04/01/21 20:29 Guaifenesin/Codeine Phosphate (Guaifenesin/Codeine 200mg/20mg 10ml Udc) 10 ml PO Q6H PRN PRN Reason: Cough Stop: 04/02/21 11:40 Heparin Sodium (Porcine) (Heparin Sod 5,000 Unit/0.5 Ml Vial) 5,000 units SQ Q8 [facility] Stop: 04/01/21 22:06 Last Admin: 03/04/21 05:59 Dose: Not Given Documented by: Ampicillin Sodium/Sulbactam Sodium 3,000 mg/ Sodium Chloride 108 mls @ 200 mls/hr IV Q6H [facility]; Protocol Stop: 03/10/21 03:59 Last Infusion: 03/04/21 11:39 Dose: Infused Documented by: Insulin Aspart (Insulin Aspart 100 Units/Ml 3 Ml Pen) 0 units SC ACHS [facility] Stop: 04/01/21 22:06 Last Admin: 03/04/21 12:22 Dose: 10 units Documented by: Insulin Glargine (Insulin Glargine Solostar 100 Units/Ml 3 Ml Pen) 20 units SC BID [facility] Stop: 04/02/21 20:59 Last Admin: 03/04/21 08:44 Dose: 20 units Documented by: Levalbuterol HCl (Levalbuterol Hcl 1.25 Mg/3 Ml Neb) 1.25 mg NEB Q6R [facility] Stop: 04/02/21 00:59 Last Admin: 03/04/21 12:58 Dose: 1.25 mg Documented by: Miscellaneous (Carbohydrates For Hypoglycemia ) 15 - 30 gm PO UD PRN PRN Reason: Hypoglycemia Treatment Stop: 04/01/21 20:29 Miscellaneous Information (Ampicillin/Sulbactam Consult Active) 1 ea N/A UD PRN PRN Reason: Consult Stop: 04/02/21 08:59 (1) Pneumonia Laterality: left Lung location: lower lobe of lung Pneumonia type: due to unspecified organism Qualified Code(s): J18.9 - Pneumonia, unspecified organism
[2021-03-04] MEDS ORDERED: LEVALBUTEROL HCL 1.25 MG/3 ML NEB NEB PRN (14:08)
[2021-03-04] MEDS: guaiFENesin 600 MG TABCR PO SCH (20:29)
[2021-03-05] MEDS: HEPARIN SOD 5,000 UNIT/0.5 ML VIAL SQ SCH ×2 (04:25→13:15)
[2021-03-05] MEDS: AMPICILLIN/SULBACTAM SOD 3,000 MG in 0.9 % SODIUM CHLORIDE 100 ML IV SCH (04:54)
[2021-03-05 07:14] LABS: Hematocrit (blood only) 35.4 % (42-52); Hemoglobin 11.5 g/dL (14.0-18.0); Mean Corpuscular Hemoglobin 29.1 pg (25-34); Mean Corpuscular Hgb Conc 32.5 g/dL (32-36); Mean Corpuscular Volume 89.6 fL (80-100); Mean Platelet Volume 10.4 fL (7.4-10.4); Platelet Count 165 K/uL (130-400); RDW Coefficient of Variation 13.2 % (11.5-14.5); RDW Standard Deviation 43.8 fL (36.4-46.3); Red Blood Count 3.95 M/uL (4.7-6.1); White Blood Count 13.08 K/uL (4.8-10.8)
[2021-03-05] MEDS: guaiFENesin 600 MG TABCR PO SCH (07:30)
[2021-03-05] MEDS: BENZONATATE 100 MG CAPSULE PO SCH ×2 (07:30→13:15)
[2021-03-05 07:53] LABS: BUN Creatinine Ratio 20.6 (10-20); Calcium 8.9 mg/dl (8.5-10.1); Creatinine Clr Calc Pharmacy 65.4 ml/min; Est GFR (African American) 67.5 ml/min; Est GFR (Non-African American) 58.2 ml/min; Potassium 3.9 mmol/L (3.5-5.1)
[2021-03-05] MEDS: INSULIN GLARGINE SOLOSTAR 100 UNITS/ML 3 ML PEN SC SCH (08:44)
[2021-03-05] MEDS: INSULIN ASPART 100 UNITS/ML 3 ML PEN SC SCH ×2 (08:44→12:40)
[2021-03-05] MEDS ORDERED: AMOXICILLIN/CLAVULANATE 875 MG TAB PO ONE (09:00)
[2021-03-05] MEDS ORDERED: AMOXICILLIN/CLAVULANATE 875 MG TAB PO SCH (17:00)
== END 2021-03-05 15:22 | disposition home or self-care (01) | DRG 871 ==
LOC: ED 15:53 → SUATTDRO 19:56 → 2S 19:56 → 3N 03-04 17:57